=== PATIENT | female | born 1940 | race Caucasian/White ===

== ENCOUNTER 2020-05-12 16:20 | IRF | payer MEDICARE, OTHER, SELFPAY ==
--- NOTE | ~2020-05-12 | XR_ITS ---
XR hip RT min 3V w AP pelvis DATE: 05/19/2020 13:37 INDICATION: Right hip fracture TECHNIQUE: AP pelvis. AP and crosstable lateral views of right hip and femur COMPARISON: None FINDINGS: Compression screws are noted extending through an intramedullary te into the right femoral head. The intramedullary te extends into the distal femoral metaphysis, secured distally by 2 trans verse interlocking screws. 2 additional transverse screws are noted through the distal femoral condyl es. There is an aba along the lateral aspect of the right hip, proximal right thigh, distal lateral u pper leg and lateral aspect of the right knee. There is a comminuted medially displaced fracture at the lesser trochanter; recommend comparison to p reoperative radiographs for more definitive evaluation/description of the fracture extent. There is an old healed fracture of the distal femoral diametaphysis. Diffuse osteopenia. There is osteoarthritis at the right knee joint. Dextroscoliosis and multilevel degenerative disc disease of the lumbar spine. Status post vertebropla sty at L5. No pelvic fracture or bone destruction is detected. No evidence of hip dislocation. IMPRESSION: Status post ORIF probable intertrochanteric right hip fracture with comminuted medially d isplaced lesser trochanteric fracture fragments; recommend comparison with preoperative radiograph fo r more definitive evaluation of the extent of the proximal right femoral fracture Diffuse osteopenia Reviewed, dictated and finalized at location A. SURGEON HELPER IMPRESSION: Status post ORIF probable intertrochanteric right hip fracture with comminuted medially displaced lesser trochanteric fracture fragments; recommen d comparison with preoperative radiograph for more definitive evaluation of the extent of the proximal right femoral fracture Diffuse osteopenia
--- NOTE | 2020-05-12 16:35 | ADMGEN ---
Alert and orientated via ambulance to floor. This patient, Marine Sandoval, was admitted to [facility] Room 226-01. Patient/family oriented to hospital policies and general routines including ID bracelet, bed and alarms, visiting hours, pain management, procedures, bathroom and other care routines, personal items, smoking policy, room service/diet, and visiting hours. Information on how to activate the Rapid Response Team has been discussed. Patient/Family are encouraged to report perceived risks to care and to ask questions if they do not understand what they are told or what they should do.
[2020-05-12 17:17] VITALS: BP 106/88; PULSE 88; RESP 20; TEMP 36.7; O2SAT 100
[2020-05-12 17:18] VITALS: BMI 26.7
[2020-05-12 17:24] VITALS: BMI 26.7
[2020-05-12] MEDS: DULoxetine HCL 60 MG CAPSULE.DR PO (18:48)
[2020-05-12 20:53] VITALS: BP 114/59; PULSE 64; RESP 20; TEMP 36.5; O2SAT 100
[2020-05-12] MEDS: busPIRone HCL 5 MG TABLET 15 MG PO (21:32)
[2020-05-12 21:33] VITALS: PULSE 64
[2020-05-12] MEDS: carvediloL 6.25 MG TABLET PO (21:33)
[2020-05-12] MEDS: SENNA/DOCUSATE SODIUM TABLET 1 TAB PO (21:34)
[2020-05-12] MEDS: SIMVASTATIN 20 MG TABLET 40 MG PO (21:36)
[2020-05-12] MEDS: traMADol HCL (*CRX) 50 MG TABLET PO (22:09)
[2020-05-13 05:18] VITALS: BP 106/75; PULSE 78; RESP 18; TEMP 36.4; O2SAT 99
[2020-05-13 06:07] VITALS: PULSE 78
[2020-05-13] MEDS: traMADol HCL (*CRX) 50 MG TABLET PO ×2 (06:07→12:11)
[2020-05-13] MEDS: AMIODARONE HCL 200 MG TABLET PO (06:07)
[2020-05-13 06:17] LABS: Basophils Percent Auto 0.5 % (0.2-1.2); Eosinophils Absolute Auto 0.4 K/mm3 (0-0.3); Eosinophils Percent Auto 4.8 % (0-4.4); Hematocrit 28.1 % (37.0-47.0); Hemoglobin 9.1 g/dL (12.0-15.0); Immature Granulocyte Absolute 0.03 K/mm3 (0.00-0.031); Immature Granulocyte Percent A 0.4 % (0-0.5); Lymphocytes Absolute Auto 1.62 K/mm3 (0.9-3.2); Lymphocytes Percent Auto 19.9 % (18.3-44.2); Mean Corpuscular HGB Conc 32.4 g/dl (32-36); Mean Corpuscular Hemoglobin 30.6 pg (26-34); Mean Corpuscular Volume 94.6 fl (80-100); Mean Platelet Volume 9.2 fl (7.4-10.4); Monocytes Absolute Auto 1.1 K/mm3 (0.1-0.6); Monocytes Percent Auto 13.4 % (2.6-8.5); Platelet Count Result 276 k/mm3 (150-375); Red Blood Count 2.97 M/mm3 (4.2-5.4); Red Cell Distribution Width 16.6 % (11.5-14.5); White Blood Count 8.1 K/mm3 (4.5-10.0)
[2020-05-13 06:50] LABS: Blood Urea Nitrogen 9 mg/dL (7-17); Calcium 7.4 mg/dL (8.4-10.2); Carbon Dioxide 28 mmol/L (22-30); Estimated CRCL calculation 84 ml/min; Estimated Glomerular Filt Rate > 60; Glucose 90 mg/dL (65-105)
[2020-05-13 06:58] LABS: Anion Gap 2 mmol/L (8-16); Chloride 102 mmol/L (98-107); Potassium 4.1 mmol/L (3.4-5.0); Sodium 132 mmol/L (137-145)
[2020-05-13] MEDS: CALCIUM ACETATE 667 MG TABLET PO (09:52)
[2020-05-13] MEDS: busPIRone HCL 5 MG TABLET 15 MG PO ×3 (09:52→21:36)
[2020-05-13 09:53] VITALS: PULSE 78
[2020-05-13] MEDS: CHOLECALCIFEROL 1,000 UNITS TABLET 1000 UNITS PO (09:53)
[2020-05-13] MEDS: carvediloL 6.25 MG TABLET PO ×2 (09:53→21:37)
[2020-05-13] MEDS: LIDOCAINE 5% PATCH 3 PATCH TOPICAL (09:55)
[2020-05-13] MEDS: DOCUSATE SODIUM 100 MG CAPSULE PO (09:55)
[2020-05-13] MEDS: polyethylene glycoL 3350 17 GM POWD.PACK PO (09:55)
[2020-05-13] MEDS: CLOPIDOGREL BISULFATE 75 MG TABLET PO (09:55)
[2020-05-13] MEDS: PRAVASTATIN SODIUM 20 MG TABLET PO (09:56)
[2020-05-13] MEDS: ACETAMINOPHEN 500 MG TABLET 1000 MG PO (10:01)
[2020-05-13 13:24] VITALS: BMI 26.7
[2020-05-13 14:00] VITALS: BP 109/67; PULSE 74; RESP 18; TEMP 36.2; O2SAT 97
--- NOTE | 2020-05-13 14:15 | WPDREHABHP ---
H&P: HPI History of Present Illness Date/Time: 05/13/20 14:15 Chief Complaint: comminuted displaced right inter trochanteric periprosthetic femur neck fracture Narrative: Marine Sandoval is a 79 year old femaleHISTORY OF PRESENT ILLNESS: The patient's primary rehab impairment category is 0 5-[id number] extremity fracture The etiologic diagnosis is comminuted displaced right intertrochanteric periprosthetic femoral neck fracture I saw this patient [id number] on May 13, 2020 at 2:00 p.m. The patient is a 79 years old female with a past medical history of hypertension, hyperlipidemia, Daniella, arthritis, coronary artery disease, and lumbar radiculopathy who presented to [facility] on May 07, 2020 with complaints of right arm and right hip pain after seem level mechanical fall at approximately 3:00 p.m. on April 27, 2020 and a fall approximately 3 weeks ago causing right shoulder pain. Radiological investigation demonstrated a comminuted femur neck fracture. Of note the patient had a known right proximal humeral shaft fracture from the fall 3 weeks ago and was being treated conservatively. Patient reported getting up from the commode trying to put her pants on when she fell onto her right side. She noted immediate pain in both right upper extremity and right lower extremity and was unable to ambulate. She denied head trauma or loss of consciousness. Patient was transferred to [facility] and admitted on May 08, 2020. Further trauma imaging was obtained and CT of the head was negative, C-spine showed severe multilevel degenerative disease with no acute fracture and lastly a comminuted displaced periprosthetic intertrochanteric right femur neck fracture with moderate right hip joint hemarthrosis with moderate size intramuscular hematoma involving the anterior and medial compartment musculature. orthopedic trauma was consulted and the patient was taken directly to the OR for an intramedullary nailing of the right femur fracture. She is weight-bearing as tolerated to the right lower extremity nonweightbearing to the right upper extremity. On May 09, 2020 the patient experience postoperative issues of atrial fibrillation with rapid ventricular response and Hypotension. She was given IV metoprolol, Ultmann of packed RBCs, and multiple fluid boluses that did not correct atrial fibrillation. She was placed on a loren infusion , given and amino bolus and then transition to an amino infusion. Cardiology was consulted and the amino infusion was run for 24 hours and then discontinued since the patient converted back to NSR. Post operatively she also experienced acute postoperative pain, acute blood loss anemia, attention, and leukocytosis. She is receiving oral analgesic for pain, acute blood loss anemia currently stable, Coreg was resumed for hypertension, and leukocytosis is currently down trending. She was transferred to rehab on Lovenox for DVT prophylaxis until she is ambulating 150ft consistently. COVID: The patient has not traveled outside the [place] or had contact with someone who is ill that has traveled outside the [place] in the past 21 days. The patient has not travel to an area of the [place] that is experiencing known transmission of the Coronavirus and has not had close personal contact with anyone that has. The patient does not have a fever. Patient is not experiencing lower respiratory illness symptoms. Therapy was initiated at the acute care facility and the patient transferred to us from [[facility] on May 12, 2020 FALLS OR SURGERIES: the patient has had major surgery this admission( IM nailing right femur on May 08, 2020) the patient has had 2 falls in the past year. The patient has had 2 falls with injury in the past year. PAST MEDICAL HISTORY: Anxiety, arthritis, atherosclerosis of the coronary artery, coronary artery disease, infection, hyperlipidemia
[2020-05-13] MEDS: DULoxetine HCL 60 MG CAPSULE.DR PO (17:04)
[2020-05-13] MEDS: oxyCODONE/ACETAMINOPHEN (*CRX) 5-325 MG TABLET 1 TABLET PO ×2 (17:04→21:39)
[2020-05-13] MEDS: BACITRACIN OINTMENT 15 GM TUBE 1 APPLIC TOPICAL (21:36)
[2020-05-13 21:37] VITALS: PULSE 74
[2020-05-13] MEDS: SIMVASTATIN 20 MG TABLET 40 MG PO (21:37)
[2020-05-13] MEDS: SENNA/DOCUSATE SODIUM TABLET 1 TAB PO (21:37)
[2020-05-13 22:15] VITALS: BP 118/62; PULSE 74; RESP 14; TEMP 36.6; O2SAT 98
[2020-05-14] VITALS (7 sets, daily range): BP systolic 89–119; BP diastolic 47–64; PULSE 67–82; RESP 12–20; TEMP 36.6–37.3; O2SAT 96–99
[2020-05-14] MEDS: AMIODARONE HCL 200 MG TABLET PO (05:21)
[2020-05-14] MEDS: oxyCODONE/ACETAMINOPHEN (*CRX) 5-325 MG TABLET 1 TABLET PO ×3 (05:22→22:58)
--- NOTE | 2020-05-14 08:08 | RPD ---
INDIVIDUALIZED PLAN OF CARE FOR Marine Sandoval Brief Synthesis of Pre-Admission Screen, Post-Admission Evaluation and Therapy Evaluations: The patient presents to rehab with comminuted, displaced right intertrochanteric benjamin-prosthetic femoral neck fracture. Comorbidities include status post intramedullary nailing right femur, right humerus fracture, hypertension, hypotension, acute blood loss anemia, acute postoperative pain, atrial fibrillation with RVR, leukocytosis, hyperlipidemia, and anxiety. The complexity of the patient's medical management, nursing, and therapy needs require an inpatient rehab hospital stay with a physician-led interdisciplinary team approach. The patient?s needs will be best met in an intensive program vs. at a lower level of care. The patient requires physician services for medical oversight, management of postop complications in setting of present comorbidities, and pain management. She will be followed at least three times a week by the rehabilitation physician. Orthopedics may see the patient at the frequency of their discretion. Labs will be drawn to monitor blood counts and electrolytes periodically. The patient requires nursing services for DVT prophylactics, infection protection, medication management and education, pressure relief, and wound care. Deficits include:ADLs, Balance, Endurance, Family Training/Education, Mobility, Pain Management, ROM, Safety, Strength, and Transfers. Storage Facility Housekeeper/Case Management for: Discharge Planning and Patient/Family Counseling Physical Therapy: 5 days per week for 90 minutes. Treatments may include: Therapeutic Exercise, Gait Training, Neuromuscular Re-education, Transfer Training, Community Reintegration, Bed Mobility, Patient/Family Education, Wheelchair Mobility Group Therapy/Concurrent Therapy Rationales: -Improve attention span during functional activities in a distracted environment. -Enhance problem solving and/or adequate judgment skills during functional activities in a distracted environment. -Promote increased safety awareness in a distracted environment to reduce fall risk with functional tasks, transfers, and ambulation to allow a more safe, self-sufficient return to the home environment. -Improve dynamic balance skills to promote safety and independence with functional activities in a distracted environment for maximum gain. Occupational Therapy: 5 days per week for 90 minutes. Treatments may include: Therapeutic Exercise, Therapeutic Activity, Cognitive Training, Self-Care Transfer Training, Community Reintegration, Home Management, Patient/Family Education, Wheelchair Mobility Training, Energy Conservation Training Group Therapy/Concurrent Therapy Rationales: -Allow therapist to observe and teach generalization and carry-over of skills learned in individual therapy. -Enhance problem solving and sequencing skills during therapeutic activities in a distracted environment. -Promote increased safety awareness in a realistic setting to reduce fall risk with functional tasks due to visual and verbal distractions. -Increase functional level with ADLs, ADL transfers and use of adaptive equipment through therapeutic activities with others while promoting safety to allow a more safe, self-sufficient return home. Medical Prognosis: Good Anticipated Length of Stay: 14 days Rehab Goals: Eating Goal: 06-Independent Oral Hygiene Goal: 06-Independent Toileting Hygiene Goal: 06-Independent Shower/Bathe Self Goal: 04-Supervision or Touching Assistance Upper Body Dressing Goal: 05-Setup or Clean Up Assistance Lower Body Dressing Goal: 05-Setup or Clean Up Assistance Putting On/Taking Off Footwear Goal: 05-Setup or Clean Up Assistance Rolling Left and Right Goal: 06-Independent Sit to Lying Goal: 06-Independent Lying to Sitting on Side of Bed Goal: 06-Independent Sit to Stand Goal: 06-Independent Chair/Cvy-pl-Srvsc Transfer Goal: 06-Independent Toilet Transfer Goal: 06-Independent C
[2020-05-14] MEDS: busPIRone HCL 5 MG TABLET 15 MG PO ×3 (08:36→21:28)
[2020-05-14] MEDS: CALCIUM ACETATE 667 MG TABLET PO (08:37)
[2020-05-14] MEDS: CHOLECALCIFEROL 1,000 UNITS TABLET 1000 UNITS PO (08:38)
[2020-05-14] MEDS: DOCUSATE SODIUM 100 MG CAPSULE PO (08:38)
[2020-05-14] MEDS: CLOPIDOGREL BISULFATE 75 MG TABLET PO (08:38)
[2020-05-14] MEDS: LIDOCAINE 5% PATCH 3 PATCH TOPICAL (08:38)
[2020-05-14] MEDS: PRAVASTATIN SODIUM 20 MG TABLET PO (08:38)
[2020-05-14] MEDS: polyethylene glycoL 3350 17 GM POWD.PACK PO (08:39)
[2020-05-14] MEDS: carvediloL 6.25 MG TABLET PO ×2 (08:40→21:29)
[2020-05-14] MEDS: BACITRACIN OINTMENT 15 GM TUBE 1 APPLIC TOPICAL ×2 (08:40→21:28)
--- NOTE | 2020-05-14 13:46 | WPDNEURORHBP ---
Subjective Date/time seen: 05/14/20 13:46 79 years old with comminuted displaced right intertrochanteric periprosthetic femur neck fracture in addition to the ongoing history of 1. Hypertension 2. Hyperlipidemia 3. Arthritis 4. Coronary artery disease 5. Lumbar radiculopathy 6. Anxiety has been evaluated by the physical therapist and occupational therapies and also involving the therapy on today's visit not complaining of anything special Review of Systems Review of Systems: All systems reviewed & are unremarkable except as noted in HPI and below Functional Status Ambulation Ability Ambulation Assistive Devices: Walker, Jorge A Exam Narrative: Exam Narrative: on examination she is awake alert cooperative in no major distress ear nose throat examination normal mucous membranes are moist no rhinorrhea neck is supple heart regular lungs clear abdomen is soft neuro examination unchanged treatment is being continued as such Objective Data Vital Signs Vital Signs: Vital Signs - 24 hr 05/13/20 14:00 05/13/20 21:37 05/13/20 22:15 Temperature 36.2 C L 36.6 C Pulse Rate 74 74 74 Respiratory Rate 18 14 Blood Pressure 109/67 118/62 Pulse Oximetry 97 98 05/14/20 05:21 05/14/20 06:00 05/14/20 08:40 Temperature 36.6 C Pulse Rate 73 67 67 Respiratory Rate 12 Blood Pressure 102/56 L Pulse Oximetry 99 Intake/Output Intake/Output: Intake & Output 05/11/20 05/12/20 05/13/20 05/14/20 23:59 23:59 23:59 23:59 Intake Total 600 480 Balance 600 480 Meds/Results Medications: Active Medications Generic Name Dose Route Start Last Admin Trade Name Freq PRN Reason Stop Dose Admin Acetaminophen 1,000 mg 05/12/20 17:39 05/13/20 10:01 Acetaminophen 500 Mg Tablet PO 1,000 mg TID PRN Administration Pain (Scale Score 1-3) Amiodarone HCl 200 mg 05/13/20 06:00 05/14/20 05:21 Amiodarone Hcl 200 Mg Tablet PO 200 mg DAILY@0600 [facility] Administration Bacitracin 1 applic 05/13/20 21:00 05/14/20 08:40 Bacitracin Ointment 15 Gm Tube TOPICAL 1 applic Q12HR [facility] Administration Buspirone HCl 15 mg 05/12/20 21:00 05/14/20 08:36 Buspirone Hcl 5 Mg Tablet PO 15 mg 0900,1600,2100 [facility] Administration Calcium Acetate 667 mg 05/13/20 09:00 05/14/20 08:37 Calcium Acetate 667 Mg Tablet PO 667 mg DAILY [facility] Administration Carvedilol 6.25 mg 05/12/20 21:00 05/14/20 08:40 Carvedilol 6.25 Mg Tablet PO 6.25 mg Q12H [facility]ATRINA Administration Clopidogrel Bisulfate 75 mg 05/13/20 09:00 05/14/20 08:38 Clopidogrel Bisulfate 75 Mg Tablet PO 75 mg DAILY [facility] Administration Cyclobenzaprine HCl 5 mg 05/12/20 17:39 Cyclobenzaprine Hcl 5 Mg Tablet PO TID PRN Muscle Spasm Docusate Sodium 100 mg 05/13/20 09:00 05/14/20 08:38 Docusate Sodium 100 Mg Capsule PO 100 mg DAILY [facility] Administration Duloxetine HCl 60 mg 05/12/20 17:00 05/13/20 17:04 Duloxetine Hcl 60 Mg Capsule.Dr PO 60 mg DAILY@1700 [facility] Administration Lidocaine 3 patch 05/13/20 09:00 05/14/20 08:38 Lidocaine 5% Patch TOPICAL 3 patch DAILY [facility] Administration Non-Formulary Medication 60 mg 05/19/20 09:00 Denosumab SUB-Q 06/18/20 09:01 [id number] [facility] Ondansetron HCl 8 mg 05/12/20 17:48 Ondansetron Hcl Odt 4 Mg Tablet PO Q6H PRN Nausea Oxycodone/Acetaminophen 1 tablet 05/13/20 14:00 05/14/20 05:22 Oxycodone/Acetaminophen (*Crx) 5-325 Mg Tablet PO 1 tablet Q8HR [facility] Administration Polyethylene Glycol 17 gm 05/13/20 09:00 05/14/20 08:39 Polyethylene Glycol 3350 17 Gm Powd.Pack PO 17 gm DAILY [facility] Administration Pravastatin Sodium 20 mg 05/13/20 09:00 05/14/20 08:38 Pravastatin Sodium 20 Mg Tablet PO 20 mg DAILY [facility] Administration Senna/Docusate Sodium 1 tab 05/12/20 21:00 05/13/20 21:37 Senna/Docusate Sodium Tablet PO 1 tab HS [facility] Administration Simvastatin 40 mg 05/12/20 21:00 05/13/20 21:37 Simvas
[2020-05-14] MEDS: DULoxetine HCL 60 MG CAPSULE.DR PO (17:07)
[2020-05-14] MEDS: SIMVASTATIN 20 MG TABLET 40 MG PO (21:29)
[2020-05-14] MEDS: SENNA/DOCUSATE SODIUM TABLET 1 TAB PO (21:30)
[2020-05-14] MEDS: traMADol HCL (*CRX) 50 MG TABLET PO (21:38)
[2020-05-15 04:47] VITALS: BP 93/52; PULSE 73; RESP 18; TEMP 37.1; O2SAT 96
[2020-05-15 06:06] VITALS: PULSE 68
[2020-05-15] MEDS: AMIODARONE HCL 200 MG TABLET PO (06:06)
[2020-05-15] MEDS: oxyCODONE/ACETAMINOPHEN (*CRX) 5-325 MG TABLET 1 TABLET PO ×3 (06:06→22:29)
[2020-05-15] MEDS: CHOLECALCIFEROL 1,000 UNITS TABLET 1000 UNITS PO (09:13)
[2020-05-15] MEDS: polyethylene glycoL 3350 17 GM POWD.PACK PO (09:13)
[2020-05-15] MEDS: PRAVASTATIN SODIUM 20 MG TABLET PO (09:13)
[2020-05-15] MEDS: LIDOCAINE 5% PATCH 3 PATCH TOPICAL (09:13)
[2020-05-15 09:14] VITALS: PULSE 68
[2020-05-15] MEDS: CALCIUM ACETATE 667 MG TABLET PO (09:14)
[2020-05-15] MEDS: CLOPIDOGREL BISULFATE 75 MG TABLET PO (09:14)
[2020-05-15] MEDS: carvediloL 6.25 MG TABLET PO ×2 (09:14→20:27)
[2020-05-15] MEDS: BACITRACIN OINTMENT 15 GM TUBE 1 APPLIC TOPICAL ×2 (09:14→20:28)
[2020-05-15] MEDS: busPIRone HCL 5 MG TABLET 15 MG PO ×3 (09:14→20:26)
[2020-05-15] MEDS: DOCUSATE SODIUM 100 MG CAPSULE PO (09:17)
[2020-05-15 14:00] VITALS: BP 136/70; PULSE 86; RESP 18; TEMP 36.7; O2SAT 95
[2020-05-15] MEDS: DULoxetine HCL 60 MG CAPSULE.DR PO (16:59)
[2020-05-15 20:27] VITALS: PULSE 75
[2020-05-15] MEDS: SENNA/DOCUSATE SODIUM TABLET 1 TAB PO (20:27)
[2020-05-15] MEDS: SIMVASTATIN 20 MG TABLET 40 MG PO (20:27)
[2020-05-15 20:57] VITALS: BP 101/75; PULSE 75; RESP 18; TEMP 36.3; O2SAT 100
[2020-05-16] VITALS (7 sets, daily range): BP systolic 93–109; BP diastolic 51–55; PULSE 70–75; RESP 18–20; TEMP 36.3–37.2; O2SAT 99
[2020-05-16] MEDS: oxyCODONE/ACETAMINOPHEN (*CRX) 5-325 MG TABLET 1 TABLET PO ×3 (06:23→20:56)
[2020-05-16] MEDS: AMIODARONE HCL 200 MG TABLET PO (06:23)
[2020-05-16] MEDS: CHOLECALCIFEROL 1,000 UNITS TABLET 1000 UNITS PO (09:23)
[2020-05-16] MEDS: carvediloL 6.25 MG TABLET PO ×2 (09:23→20:53)
[2020-05-16] MEDS: CALCIUM ACETATE 667 MG TABLET PO (09:23)
[2020-05-16] MEDS: PRAVASTATIN SODIUM 20 MG TABLET PO (09:23)
[2020-05-16] MEDS: CLOPIDOGREL BISULFATE 75 MG TABLET PO (09:23)
[2020-05-16] MEDS: LIDOCAINE 5% PATCH 3 PATCH TOPICAL (09:24)
[2020-05-16] MEDS: busPIRone HCL 5 MG TABLET 15 MG PO ×3 (09:24→20:53)
[2020-05-16] MEDS: BACITRACIN OINTMENT 15 GM TUBE 1 APPLIC TOPICAL ×2 (09:24→20:53)
[2020-05-16] MEDS: polyethylene glycoL 3350 17 GM POWD.PACK PO (09:24)
[2020-05-16] MEDS: DOCUSATE SODIUM 100 MG CAPSULE PO (09:24)
--- NOTE | 2020-05-16 13:30 | WPDNEURORHBP ---
Subjective Date/time seen: 05/16/20 13:30 79 years old with comminuted displaced right intertrochanteric periprosthetic femur neck fracture in addition to ongoing history of 1. Hypertension 2. Hyperlipidemia 3. Arthritis 4. Coronary artery disease 5. Lumbar radiculopathy 6. Anxiety has been involved in physical therapy and occupational therapy on today's visit has no specific complaints feeling generally better Review of Systems Review of Systems: All systems reviewed & are unremarkable except as noted in HPI and below Functional Status Ambulation Ability Ambulation Assistive Devices: Walker, Jorge A Exam Narrative: Exam Narrative: on examination awake alert cooperative, [place] nor dysphasic no dysarthric not dysphonic, neck supple, heart regular with no murmur, lungs clear to auscultation with no rhonchi or crepitation, abdomen soft nontender, neurological examination unchanged Objective Data Vital Signs Vital Signs: Vital Signs - 24 hr 05/15/20 14:00 05/15/20 20:27 05/15/20 20:57 Temperature 36.7 C 36.3 C L Pulse Rate 86 75 75 Respiratory Rate 18 18 Blood Pressure 136/70 101/75 Pulse Oximetry 95 100 05/16/20 05:39 05/16/20 06:23 05/16/20 09:23 Temperature 37.0 C Pulse Rate 75 75 75 Respiratory Rate 20 Blood Pressure 109/55 L Pulse Oximetry 99 Intake/Output Intake/Output: Intake & Output 05/13/20 05/14/20 05/15/20 05/16/20 23:59 23:59 23:59 23:59 Intake Total 600 720 600 480 Balance 600 720 600 480 Meds/Results Medications: Active Medications Generic Name Dose Route Start Last Admin Trade Name Freq PRN Reason Stop Dose Admin Acetaminophen 1,000 mg 05/12/20 17:39 05/13/20 10:01 Acetaminophen 500 Mg Tablet PO 1,000 mg TID PRN Administration Pain (Scale Score 1-3) Amiodarone HCl 200 mg 05/13/20 06:00 05/16/20 06:23 Amiodarone Hcl 200 Mg Tablet PO 200 mg DAILY@0600 [facility] Administration Bacitracin 1 applic 05/13/20 21:00 05/16/20 09:24 Bacitracin Ointment 15 Gm Tube TOPICAL 1 applic Q12HR [facility] Administration Buspirone HCl 15 mg 05/12/20 21:00 05/16/20 09:24 Buspirone Hcl 5 Mg Tablet PO 15 mg 0900,1600,2100 [facility] Administration Calcium Acetate 667 mg 05/13/20 09:00 05/16/20 09:23 Calcium Acetate 667 Mg Tablet PO 667 mg DAILY [facility] Administration Carvedilol 6.25 mg 05/12/20 21:00 05/16/20 09:23 Carvedilol 6.25 Mg Tablet PO 6.25 mg Q12H [facility] Administration Clopidogrel Bisulfate 75 mg 05/13/20 09:00 05/16/20 09:23 Clopidogrel Bisulfate 75 Mg Tablet PO 75 mg DAILY [facility] Administration Cyclobenzaprine HCl 5 mg 05/12/20 17:39 Cyclobenzaprine Hcl 5 Mg Tablet PO TID PRN Muscle Spasm Docusate Sodium 100 mg 05/13/20 09:00 05/16/20 09:24 Docusate Sodium 100 Mg Capsule PO 100 mg DAILY [facility] Administration Duloxetine HCl 60 mg 05/12/20 17:00 05/15/20 16:59 Duloxetine Hcl 60 Mg Capsule.Dr PO 60 mg DAILY@1700 [facility] Administration Lidocaine 3 patch 05/13/20 09:00 05/16/20 09:24 Lidocaine 5% Patch TOPICAL 3 patch DAILY [facility] Administration Non-Formulary Medication 60 mg 05/19/20 09:00 Denosumab SUB-Q 06/18/20 09:01 [id number] [facility] Ondansetron HCl 8 mg 05/12/20 17:48 Ondansetron Hcl Odt 4 Mg Tablet PO Q6H PRN Nausea Oxycodone/Acetaminophen 1 tablet 05/13/20 14:00 05/16/20 06:23 Oxycodone/Acetaminophen (*Crx) 5-325 Mg Tablet PO 1 tablet Q8HR [facility] Administration Polyethylene Glycol 17 gm 05/13/20 09:00 05/16/20 09:24 Polyethylene Glycol 3350 17 Gm Powd.Pack PO 17 gm DAILY [facility] Administration Pravastatin Sodium 20 mg 05/13/20 09:00 05/16/20 09:23 Pravastatin Sodium 20 Mg Tablet PO 20 mg DAILY [facility] Administration Senna/Docusate Sodium 1 tab 05/12/20 21:00 05/15/20 20:27 Senna/Docusate Sodium Tablet PO 1 tab HS [facility] Administration Simvastatin 40 mg 05/12/20 21:00 05/15/20 20:27 Simvastatin 20 Mg Tablet PO 40
--- NOTE | 2020-05-16 13:32 | WPDNEURORHBP ---
Subjective Date/time seen: 05/16/20 13:32 80 years old with comminuted displaced right intertrochanteric periprosthetic femur neck fracture addition to history of multiple medical problems as outlined before additionally complained of lower back pain as well remains stable has no specific complaints today and has been involved in physical therapy and occupational therapy accordingly. Functional Status Ambulation Ability Ambulation Assistive Devices: Walker, Jorge A Exam Narrative: Exam Narrative: On exam awake alert cooperative his speech not dysphasic no dysarthric not dysphonic. Neck is supple with no restriction of the range of motions. Heart regular with no murmur. Lungs clear to auscultation with no rhonchi or crepitations. Abdomen is soft with no organomegaly nontender normal bowel sounds. Wound clean neuro exam unchanged Objective Data Vital Signs Vital Signs: Vital Signs - 24 hr 05/15/20 14:00 05/15/20 20:27 05/15/20 20:57 Temperature 36.7 C 36.3 C L Pulse Rate 86 75 75 Respiratory Rate 18 18 Blood Pressure 136/70 101/75 Pulse Oximetry 95 100 05/16/20 05:39 05/16/20 06:23 05/16/20 09:23 Temperature 37.0 C Pulse Rate 75 75 75 Respiratory Rate 20 Blood Pressure 109/55 L Pulse Oximetry 99 Intake/Output Intake/Output: Intake & Output 05/13/20 05/14/20 05/15/20 05/16/20 23:59 23:59 23:59 23:59 Intake Total 600 720 600 480 Balance 600 720 600 480 Meds/Results Medications: Active Medications Generic Name Dose Route Start Last Admin Trade Name Leonq PRN Reason Stop Dose Admin Acetaminophen 1,000 mg 05/12/20 17:39 05/13/20 10:01 Acetaminophen 500 Mg Tablet PO 1,000 mg TID PRN Administration Pain (Scale Score 1-3) Amiodarone HCl 200 mg 05/13/20 06:00 05/16/20 06:23 Amiodarone Hcl 200 Mg Tablet PO 200 mg DAILY@0600 [facility] Administration Bacitracin 1 applic 05/13/20 21:00 05/16/20 09:24 Bacitracin Ointment 15 Gm Tube TOPICAL 1 applic Q12HR [facility] Administration Buspirone HCl 15 mg 05/12/20 21:00 05/16/20 09:24 Buspirone Hcl 5 Mg Tablet PO 15 mg 0900,1600,2100 [facility] Administration Calcium Acetate 667 mg 05/13/20 09:00 05/16/20 09:23 Calcium Acetate 667 Mg Tablet PO 667 mg DAILY [facility] Administration Carvedilol 6.25 mg 05/12/20 21:00 05/16/20 09:23 Carvedilol 6.25 Mg Tablet PO 6.25 mg Q12H [facility] Administration Clopidogrel Bisulfate 75 mg 05/13/20 09:00 05/16/20 09:23 Clopidogrel Bisulfate 75 Mg Tablet PO 75 mg DAILY [facility] Administration Cyclobenzaprine HCl 5 mg 05/12/20 17:39 Cyclobenzaprine Hcl 5 Mg Tablet PO TID PRN Muscle Spasm Docusate Sodium 100 mg 05/13/20 09:00 05/16/20 09:24 Docusate Sodium 100 Mg Capsule PO 100 mg DAILY [facility] Administration Duloxetine HCl 60 mg 05/12/20 17:00 05/15/20 16:59 Duloxetine Hcl 60 Mg Capsule.Dr PO 60 mg DAILY@1700 [facility] Administration Lidocaine 3 patch 05/13/20 09:00 05/16/20 09:24 Lidocaine 5% Patch TOPICAL 3 patch DAILY [facility] Administration Non-Formulary Medication 60 mg 05/19/20 09:00 Denosumab SUB-Q 06/18/20 09:01 [id number] [facility] Ondansetron HCl 8 mg 05/12/20 17:48 Ondansetron Hcl Odt 4 Mg Tablet PO Q6H PRN Nausea Oxycodone/Acetaminophen 1 tablet 05/13/20 14:00 05/16/20 06:23 Oxycodone/Acetaminophen (*Crx) 5-325 Mg Tablet PO 1 tablet Q8HR [facility] Administration Polyethylene Glycol 17 gm 05/13/20 09:00 05/16/20 09:24 Polyethylene Glycol 3350 17 Gm Powd.Pack PO 17 gm DAILY [facility] Administration Pravastatin Sodium 20 mg 05/13/20 09:00 05/16/20 09:23 Pravastatin Sodium 20 Mg Tablet PO 20 mg DAILY [facility] Administration Senna/Docusate Sodium 1 tab 05/12/20 21:00 05/15/20 20:27 Senna/Docusate Sodium Tablet PO 1 tab HS [facility] Administration Simvastatin 40 mg 05/12/20 21:00 12/25/20 20:27 Simvastatin 20 Mg Tablet PO 40 mg HS [facility] Administration Tramadol HCl 50 mg
[2020-05-16] MEDS: DULoxetine HCL 60 MG CAPSULE.DR PO (17:25)
[2020-05-16] MEDS: SIMVASTATIN 20 MG TABLET 40 MG PO (20:53)
[2020-05-16] MEDS: SENNA/DOCUSATE SODIUM TABLET 1 TAB PO (20:53)
[2020-05-17 06:00] VITALS: BP 114/54; PULSE 70; RESP 18; TEMP 36.9; O2SAT 96
[2020-05-17 06:11] VITALS: PULSE 70
[2020-05-17] MEDS: AMIODARONE HCL 200 MG TABLET PO (06:11)
[2020-05-17] MEDS: oxyCODONE/ACETAMINOPHEN (*CRX) 5-325 MG TABLET 1 TABLET PO ×3 (06:17→21:00)
[2020-05-17] MEDS: BACITRACIN OINTMENT 15 GM TUBE 1 APPLIC TOPICAL ×2 (09:26→20:59)
[2020-05-17 09:27] VITALS: PULSE 70
[2020-05-17] MEDS: polyethylene glycoL 3350 17 GM POWD.PACK PO (09:27)
[2020-05-17] MEDS: CALCIUM ACETATE 667 MG TABLET PO (09:27)
[2020-05-17] MEDS: CHOLECALCIFEROL 1,000 UNITS TABLET 1000 UNITS PO (09:27)
[2020-05-17] MEDS: carvediloL 6.25 MG TABLET PO ×2 (09:27→20:58)
[2020-05-17] MEDS: busPIRone HCL 5 MG TABLET 15 MG PO ×3 (09:27→20:58)
[2020-05-17] MEDS: CLOPIDOGREL BISULFATE 75 MG TABLET PO (09:27)
[2020-05-17] MEDS: PRAVASTATIN SODIUM 20 MG TABLET PO (09:27)
[2020-05-17] MEDS: DOCUSATE SODIUM 100 MG CAPSULE PO (09:27)
[2020-05-17] MEDS: LIDOCAINE 5% PATCH 3 PATCH TOPICAL (09:27)
[2020-05-17 14:00] VITALS: BP 97/49; PULSE 76; RESP 16; TEMP 36.6; O2SAT 99
[2020-05-17 15:16] LABS: Basophils Absolute Auto 0.1 K/mm3 (0.0-0.1); Basophils Percent Auto 0.5 % (0.2-1.2); Eosinophils Absolute Auto 0.2 K/mm3 (0-0.3); Eosinophils Percent Auto 1.9 % (0-4.4); Hematocrit 34.9 % (37.0-47.0); Hemoglobin 11.4 g/dL (12.0-15.0); Immature Granulocyte Absolute 0.07 K/mm3 (0.00-0.031); Immature Granulocyte Percent A 0.7 % (0-0.5); Lymphocytes Absolute Auto 1.48 K/mm3 (0.9-3.2); Lymphocytes Percent Auto 14.1 % (18.3-44.2); Mean Corpuscular HGB Conc 32.7 g/dl (32-36); Mean Corpuscular Hemoglobin 31.4 pg (26-34); Mean Corpuscular Volume 96.1 fl (80-100); Mean Platelet Volume 8.6 fl (7.4-10.4); Monocytes Absolute Auto 1.5 K/mm3 (0.1-0.6); Neutrophils Absolute Auto 7.3 K/mm3 (1.3-6.7); Neutrophils Percent Auto 68.8 % (45.5-73.1); Platelet Count Result 573 k/mm3 (150-375); Red Blood Count 3.63 M/mm3 (4.2-5.4); Red Cell Distribution Width 16.8 % (11.5-14.5); White Blood Count 10.5 K/mm3 (4.5-10.0)
[2020-05-17 15:28] LABS: Alanine Aminotransferase 15 U/L (4-35); Albumin Level 3.4 g/dL (3.5-5.1); Alkaline Phosphatase 100 U/L (38-126); Anion Gap 7 mmol/L (8-16); Aspartate Amino Transferase 27 U/L (14-36); Bilirubin,Total 1.7 mg/dL (0.2-1.3); Blood Urea Nitrogen 13 mg/dL (7-17); Calcium 8.5 mg/dL (8.4-10.2); Carbon Dioxide 29 mmol/L (22-30); Chloride 99 mmol/L (98-107); Estimated CRCL calculation 59 ml/min; Estimated Glomerular Filt Rate > 60; Glucose 101 mg/dL (65-105); Potassium 3.6 mmol/L (3.4-5.0); Sodium 135 mmol/L (137-145)
[2020-05-17] MEDS: DULoxetine HCL 60 MG CAPSULE.DR PO (17:23)
[2020-05-17 20:58] VITALS: PULSE 78
[2020-05-17] MEDS: SIMVASTATIN 20 MG TABLET 40 MG PO (20:59)
[2020-05-17] MEDS: SENNA/DOCUSATE SODIUM TABLET 1 TAB PO (20:59)
[2020-05-17 21:17] VITALS: BP 128/66; PULSE 74; RESP 18; TEMP 36.8; O2SAT 100
[2020-05-18 05:58] VITALS: PULSE 82
[2020-05-18] MEDS: oxyCODONE/ACETAMINOPHEN (*CRX) 5-325 MG TABLET 1 TABLET PO ×3 (05:58→22:39)
[2020-05-18] MEDS: AMIODARONE HCL 200 MG TABLET PO (05:58)
[2020-05-18 06:00] VITALS: BP 111/61; PULSE 76; RESP 18; TEMP 36.3; O2SAT 100
[2020-05-18] MEDS: DOCUSATE SODIUM 100 MG CAPSULE PO (08:53)
[2020-05-18] MEDS: carvediloL 6.25 MG TABLET PO ×2 (08:53→21:42)
[2020-05-18] MEDS: PRAVASTATIN SODIUM 20 MG TABLET PO (08:53)
[2020-05-18] MEDS: CHOLECALCIFEROL 1,000 UNITS TABLET 1000 UNITS PO (08:53)
[2020-05-18] MEDS: CALCIUM ACETATE 667 MG TABLET PO (08:53)
[2020-05-18] MEDS: busPIRone HCL 5 MG TABLET 15 MG PO ×3 (08:54→21:42)
[2020-05-18] MEDS: CLOPIDOGREL BISULFATE 75 MG TABLET PO (08:54)
[2020-05-18] MEDS: BACITRACIN OINTMENT 15 GM TUBE 1 APPLIC TOPICAL ×2 (08:59→21:44)
--- NOTE | 2020-05-18 09:45 | WPDNEURORHBP ---
Subjective Date/time seen: 05/18/20 09:45 80 years old with comminuted displaced right intertrochanteric periprosthetic femur neck fracture in addition to history of her multiple medical problems her lab revealed hemoglobin of 11.4 and electrolytes were normal continues to be involved in the therapy Review of Systems Review of Systems: All systems reviewed & are unremarkable except as noted in HPI and below Functional Status Ambulation Ability Ability to Ambulate 10 Feet: Moderate Assistance X 1 Ambulation Assistive Devices: Walker, Wheeled Exam Narrative: Exam Narrative: examination reveals awake alert cooperative his speech nor dysphasic not dysarthric neck is supple heart regular lungs clear abdomen soft nontender and neuro unchanged Objective Data Vital Signs Vital Signs: Vital Signs - 24 hr 05/17/20 14:00 05/17/20 20:58 05/17/20 21:17 Temperature 36.6 C 36.8 C Pulse Rate 76 78 74 Respiratory Rate 16 18 Blood Pressure 97/49 L 128/66 Pulse Oximetry 99 100 05/18/20 05:58 05/18/20 06:00 Temperature 36.3 C L Pulse Rate 82 76 Respiratory Rate 18 Blood Pressure 111/61 Pulse Oximetry 100 Intake/Output Intake/Output: Intake & Output 05/15/20 05/16/20 05/17/20 05/18/20 23:59 23:59 23:59 23:59 Intake Total 600 480 480 240 Balance 600 480 480 240 Meds/Results Medications: Active Medications Generic Name Dose Route Start Last Admin Trade Name Freq PRN Reason Stop Dose Admin Acetaminophen 1,000 mg 05/12/20 17:39 05/13/20 10:01 Acetaminophen 500 Mg Tablet PO 1,000 mg TID PRN Administration Pain (Scale Score 1-3) Amiodarone HCl 200 mg 05/13/20 06:00 05/18/20 05:58 Amiodarone Hcl 200 Mg Tablet PO 200 mg DAILY@0600 [facility] Administration Bacitracin 1 applic 05/13/20 21:00 05/18/20 08:59 Bacitracin Ointment 15 Gm Tube TOPICAL 1 applic Q12HR [facility] Administration Buspirone HCl 15 mg 05/12/20 21:00 05/18/20 08:54 Buspirone Hcl 5 Mg Tablet PO 15 mg 0900,1600,2100 [facility] Administration Calcium Acetate 667 mg 05/13/20 09:00 05/18/20 08:53 Calcium Acetate 667 Mg Tablet PO 667 mg DAILY [facility] Administration Carvedilol 6.25 mg 05/12/20 21:00 05/18/20 08:53 Carvedilol 6.25 Mg Tablet PO 6.25 mg Q12H [facility] Administration Clopidogrel Bisulfate 75 mg 05/13/20 09:00 05/18/20 08:54 Clopidogrel Bisulfate 75 Mg Tablet PO 75 mg DAILY [facility] Administration Cyclobenzaprine HCl 5 mg 05/12/20 17:39 Cyclobenzaprine Hcl 5 Mg Tablet PO TID PRN Muscle Spasm Docusate Sodium 100 mg 05/13/20 09:00 05/18/20 08:53 Docusate Sodium 100 Mg Capsule PO 100 mg DAILY [facility] Administration Duloxetine HCl 60 mg 05/12/20 17:00 05/17/20 17:23 Duloxetine Hcl 60 Mg Capsule.Dr PO 60 mg DAILY@1700 [facility] Administration Lidocaine 3 patch 05/13/20 09:00 05/17/20 09:27 Lidocaine 5% Patch TOPICAL 3 patch DAILY [facility] Administration Non-Formulary Medication 60 mg 05/19/20 09:00 Denosumab SUB-Q 06/18/20 09:01 [id number] [facility] Ondansetron HCl 8 mg 05/12/20 17:48 Ondansetron Hcl Odt 4 Mg Tablet PO Q6H PRN Nausea Oxycodone/Acetaminophen 1 tablet 05/13/20 14:00 05/18/20 05:58 Oxycodone/Acetaminophen (*Crx) 5-325 Mg Tablet PO 1 tablet Q8HR [facility] Administration Polyethylene Glycol 17 gm 05/13/20 09:00 05/18/20 09:04 Polyethylene Glycol 3350 17 Gm Powd.Pack PO Not Given DAILY [facility] Pravastatin Sodium 20 mg 05/13/20 09:00 05/18/20 08:53 Pravastatin Sodium 20 Mg Tablet PO 20 mg DAILY [facility] Administration Senna/Docusate Sodium 1 tab 05/12/20 21:00 05/17/20 20:59 Senna/Docusate Sodium Tablet PO 1 tab HS [facility] Administration Simvastatin 40 mg 05/12/20 21:00 05/17/20 20:59 Simvastatin 20 Mg Tablet PO 40 mg HS [facility] Administration Tramadol HCl 50 mg 05/12/20 17:39 05/14/20 21:38 Tramadol Hcl (*Crx) 50 Mg Tablet PO 50 mg Q6H PRN Administration Pain (Scale Sco
[2020-05-18] MEDS: LIDOCAINE 5% PATCH 3 PATCH TOPICAL (12:09)
[2020-05-18] MEDS: ACETAMINOPHEN 500 MG TABLET 1000 MG PO (12:21)
[2020-05-18 14:00] VITALS: BP 94/49; PULSE 74; RESP 20; TEMP 36.9; O2SAT 99
[2020-05-18] MEDS: DULoxetine HCL 60 MG CAPSULE.DR PO (16:57)
[2020-05-18 21:42] VITALS: PULSE 80
[2020-05-18] MEDS: SIMVASTATIN 20 MG TABLET 40 MG PO (21:43)
[2020-05-18] MEDS: SENNA/DOCUSATE SODIUM TABLET 1 TAB PO (21:43)
[2020-05-18 22:00] VITALS: BP 109/57; PULSE 77; RESP 20; TEMP 37; O2SAT 99
[2020-05-19] MEDS: CYCLOBENZAPRINE HCL 5 MG TABLET PO (00:17)
[2020-05-19 05:14] LABS: Anion Gap 5 mmol/L (8-16); Blood Urea Nitrogen 11 mg/dL (7-17); Calcium 7.6 mg/dL (8.4-10.2); Carbon Dioxide 25 mmol/L (22-30); Chloride 102 mmol/L (98-107); Estimated CRCL calculation 84 ml/min; Estimated Glomerular Filt Rate > 60; Glucose 95 mg/dL (65-105); Sodium 132 mmol/L (137-145)
[2020-05-19 05:56] VITALS: PULSE 75
[2020-05-19] MEDS: AMIODARONE HCL 200 MG TABLET PO (05:56)
[2020-05-19 06:00] VITALS: BP 113/56; PULSE 75; RESP 20; TEMP 36.8; O2SAT 99
[2020-05-19] MEDS: oxyCODONE/ACETAMINOPHEN (*CRX) 5-325 MG TABLET 1 TABLET PO ×3 (06:25→22:08)
[2020-05-19] MEDS: BACITRACIN OINTMENT 15 GM TUBE 1 APPLIC TOPICAL ×2 (08:25→22:10)
[2020-05-19] MEDS: busPIRone HCL 5 MG TABLET 15 MG PO ×3 (08:25→22:13)
[2020-05-19] MEDS: CLOPIDOGREL BISULFATE 75 MG TABLET PO (08:26)
[2020-05-19] MEDS: DOCUSATE SODIUM 100 MG CAPSULE PO (08:26)
[2020-05-19] MEDS: CHOLECALCIFEROL 1,000 UNITS TABLET 1000 UNITS PO (08:26)
[2020-05-19] MEDS: carvediloL 6.25 MG TABLET PO ×2 (08:26→22:13)
[2020-05-19] MEDS: CALCIUM ACETATE 667 MG TABLET PO (08:26)
[2020-05-19] MEDS: LIDOCAINE 5% PATCH 3 PATCH TOPICAL (08:26)
[2020-05-19] MEDS: PRAVASTATIN SODIUM 20 MG TABLET PO (08:26)
--- NOTE | 2020-05-19 11:21 | WPDNEURORHBP ---
Subjective Date/time seen: 05/19/20 11:21 80 years old admitted to the hospital with comminuted displaced right intertrochanteric periprosthetic femur neck fracture in addition to the history of multiple medical problems, case for discussing the femur team meeting with the family as well her wound is clean her confusion is definitely down left phlebotomy site looks better, we were concerned about the shoulder which has not been operated upon and also they were concerned about the treatment for the Osteoporosis they have a tight injection of Prolia which they will receive bring to the hospital and can be given here and family was also informed about the x-rays report from the time of admission but we will also repeat another x-ray here Review of Systems Review of Systems: All systems reviewed & are unremarkable except as noted in HPI and below Functional Status Ambulation Ability Ability to Ambulate 10 Feet: Moderate Assistance X 1 Ambulation Assistive Devices: Cane, Jorge A Exam Narrative: Exam Narrative: examination revealed her to be awake alert cooperative in no obvious acute distress his speech nor dysphasic no dysarthric not dysphonic. The cranial examination is normal motor examination revealed her to have no drift of 1 side or other side. Reflexes are sluggish but symmetrical. Heart regular lungs clear. Abdomen is soft with normal bowel sounds nontender yesterday she was noted to be slightly more confused but today she is better Objective Data Vital Signs Vital Signs: Vital Signs - 24 hr 05/18/20 14:00 05/18/20 21:42 05/18/20 22:00 Temperature 36.9 C 37.0 C Pulse Rate 74 80 77 Respiratory Rate 20 20 Blood Pressure 94/49 L 109/57 L Pulse Oximetry 99 99 05/19/20 05:56 05/19/20 06:00 Temperature 36.8 C Pulse Rate 75 75 Respiratory Rate 20 Blood Pressure 113/56 L Pulse Oximetry 99 Intake/Output Intake/Output: Intake & Output 05/16/20 05/17/20 05/18/20 05/19/20 23:59 23:59 23:59 23:59 Intake Total 480 480 720 240 Balance 480 480 720 240 Meds/Results Medications: Active Medications Generic Name Dose Route Start Last Admin Trade Name Freq PRN Reason Stop Dose Admin Acetaminophen 1,000 mg 05/12/20 17:39 05/18/20 12:21 Acetaminophen 500 Mg Tablet PO 1,000 mg TID PRN Administration Pain (Scale Score 1-3) Amiodarone HCl 200 mg 05/13/20 06:00 05/19/20 05:56 Amiodarone Hcl 200 Mg Tablet PO 200 mg DAILY@0600 [facility] Administration Bacitracin 1 applic 05/13/20 21:00 05/19/20 08:25 Bacitracin Ointment 15 Gm Tube TOPICAL 1 applic Q12HR [facility] Administration Buspirone HCl 15 mg 05/12/20 21:00 05/19/20 08:25 Buspirone Hcl 5 Mg Tablet PO 15 mg 0900,1600,2100 [facility] Administration Calcium Acetate 667 mg 05/13/20 09:00 05/19/20 08:26 Calcium Acetate 667 Mg Tablet PO 667 mg DAILY [facility] Administration Carvedilol 6.25 mg 05/12/20 21:00 05/19/20 08:26 Carvedilol 6.25 Mg Tablet PO 6.25 mg Q12H [facility] Administration Clopidogrel Bisulfate 75 mg 05/13/20 09:00 05/19/20 08:26 Clopidogrel Bisulfate 75 Mg Tablet PO 75 mg DAILY [facility] Administration Cyclobenzaprine HCl 5 mg 05/12/20 17:39 05/19/20 00:17 Cyclobenzaprine Hcl 5 Mg Tablet PO 5 mg TID PRN Administration Muscle Spasm Docusate Sodium 100 mg 05/13/20 09:00 05/19/20 08:26 Docusate Sodium 100 Mg Capsule PO 100 mg DAILY [facility] Administration Duloxetine HCl 60 mg 05/12/20 17:00 05/18/20 16:57 Duloxetine Hcl 60 Mg Capsule.Dr PO 60 mg DAILY@1700 [facility] Administration Lidocaine 3 patch 05/13/20 09:00 05/19/20 08:26 Lidocaine 5% Patch TOPICAL 3 patch DAILY [facility] Administration Non-Formulary Medication 60 mg 05/19/20 09:00 Denosumab SUB-Q 06/18/20 09:01 [id number] [facility] Ondansetron HCl 8 mg 05/12/20 17:48 Ondansetron Hcl Odt 4 Mg Tablet PO Q6H PRN Nausea Oxycodone/Acetaminophen 1 tablet 05/19/20 13:00 Oxycodone/Acetaminophen
--- NOTE | 2020-05-19 13:16 | PCDIET ---
Nutrition Follow-Up Complete: Nutrition Diagnosis: Inadequate oral intake related to hip fx as evidenced by poor po intake. Nutrition Goal: Meet estimated nutritional needs Goal met. Patient consumed average of 72% of recorded meals since 05/14/20. Patient on phone at time of visit, but spoke with nurse aid who reports patient has been taking Ensure Enlive which is being sent 1x daily. Nurse aid reports patient refused to order lunch tray due to preference for snacks in room. Will monitor. Recommend continuing regular diet with Enlive daily at this time. Last recorded weight is 66.4 kg. Recommend obtaining new weight. Bowel Motility: Small BM documented 04/18/20 with moderate BM on 04/17/20. Labs Reviewed: Hgb (11.4), Hct (34.9), Cr (0.4), Na (132), Ca (7.6) Meds Noted: Phoslo, Coreg, Colace, Pravastatin, Senokot, Zocor, Vitamin D Additional Notes: Hip incision healing well. No documented pressure sores. Will continue to monitor with same goal. Nutrition Monitoring and Evaluation: Will monitor every 7 days.
[2020-05-19 14:00] VITALS: BP 106/43; PULSE 73; RESP 20; TEMP 37; O2SAT 98
[2020-05-19] MEDS: DULoxetine HCL 60 MG CAPSULE.DR PO (16:27)
[2020-05-19 20:45] VITALS: PULSE 80; RESP 20; O2SAT 99
[2020-05-19 22:00] VITALS: BP 112/66; PULSE 82; RESP 20; TEMP 37.4; O2SAT 99
[2020-05-19] MEDS: SIMVASTATIN 20 MG TABLET 40 MG PO (22:10)
[2020-05-19 22:13] VITALS: PULSE 80
[2020-05-19] MEDS: SENNA/DOCUSATE SODIUM TABLET 1 TAB PO (22:14)
[2020-05-20] MEDS: oxyCODONE/ACETAMINOPHEN (*CRX) 5-325 MG TABLET 1 TABLET PO ×4 (01:09→18:38)
[2020-05-20 05:17] LABS: Basophils Percent Auto 0.6 % (0.2-1.2); Eosinophils Percent Auto 0.3 % (0-4.4); Hematocrit 29.2 % (37.0-47.0); Hemoglobin 9.6 g/dL (12.0-15.0); Immature Granulocyte Absolute 0.03 K/mm3 (0.00-0.031); Immature Granulocyte Percent A 0.5 % (0-0.5); Lymphocytes Absolute Auto 1.73 K/mm3 (0.9-3.2); Lymphocytes Percent Auto 27.4 % (18.3-44.2); Mean Corpuscular HGB Conc 32.9 g/dl (32-36); Mean Corpuscular Hemoglobin 31.1 pg (26-34); Mean Corpuscular Volume 94.5 fl (80-100); Mean Platelet Volume 8.7 fl (7.4-10.4); Monocytes Absolute Auto 1.1 K/mm3 (0.1-0.6); Monocytes Percent Auto 17.1 % (2.6-8.5); Neutrophils Absolute Auto 3.4 K/mm3 (1.3-6.7); Neutrophils Percent Auto 54.1 % (45.5-73.1); Platelet Count Result 472 k/mm3 (150-375); Red Blood Count 3.09 M/mm3 (4.2-5.4); Red Cell Distribution Width 16.3 % (11.5-14.5); White Blood Count 6.3 K/mm3 (4.5-10.0)
[2020-05-20 05:22] LABS: Anion Gap 5 mmol/L (8-16); Blood Urea Nitrogen 9 mg/dL (7-17); Calcium 7.6 mg/dL (8.4-10.2); Carbon Dioxide 26 mmol/L (22-30); Chloride 100 mmol/L (98-107); Estimated CRCL calculation 84 ml/min; Estimated Glomerular Filt Rate > 60; Glucose 83 mg/dL (65-105); Potassium 3.9 mmol/L (3.4-5.0); Sodium 131 mmol/L (137-145)
[2020-05-20 05:28] VITALS: BP 93/53; PULSE 65; RESP 20; TEMP 35.9; O2SAT 96
[2020-05-20 06:28] VITALS: PULSE 82
[2020-05-20] MEDS: AMIODARONE HCL 200 MG TABLET PO (06:28)
[2020-05-20 09:52] VITALS: PULSE 82
[2020-05-20] MEDS: BACITRACIN OINTMENT 15 GM TUBE 1 APPLIC TOPICAL ×2 (09:53→22:12)
[2020-05-20] MEDS: CALCIUM ACETATE 667 MG TABLET PO (09:53)
[2020-05-20] MEDS: CLOPIDOGREL BISULFATE 75 MG TABLET PO (09:54)
[2020-05-20] MEDS: CHOLECALCIFEROL 1,000 UNITS TABLET 1000 UNITS PO (09:54)
[2020-05-20] MEDS: PRAVASTATIN SODIUM 20 MG TABLET PO (09:55)
[2020-05-20] MEDS: polyethylene glycoL 3350 17 GM POWD.PACK PO (09:56)
[2020-05-20] MEDS: busPIRone HCL 5 MG TABLET 15 MG PO ×3 (10:44→22:11)
[2020-05-20] MEDS: LIDOCAINE 5% PATCH 3 PATCH TOPICAL (11:12)
[2020-05-20 14:00] VITALS: BP 139/49; PULSE 78; RESP 20; TEMP 36.9; O2SAT 98
--- NOTE | 2020-05-20 15:01 | WPDNEURORHBP ---
Subjective Date/time seen: 05/20/20 15:01 80 years old with comminuted displaced normal right intertrochanteric periprosthetic femur neck fracture continues to be involving the physical therapy and occupational therapy yesterday her family was informed the discs fractured line is not going into the hips and x-rays were obtained to [facility] which shows probable intertrochanteric right hip fracture with comminuted medially displaced lesser trochanter fracture for which comparison studies were suggested patient does have diffuse osteopenia routine lab today revealed hemoglobin of 9.6 platelet count 472 sodium 131 creatinine 0.40 and BUN only 9 clearance is 84 also albumin is 3.4 Functional Status Ambulation Ability Ability to Ambulate 10 Feet: Moderate Assistance X 1 Ambulation Assistive Devices: Cane, Jorge A Exam Narrative: Exam Narrative: awake alert cooperative in no distress ear nose throat exam normal neck supple with no limitation heart regular lungs clear abdomen is soft neurological examination unchanged treatment is being continued as such Objective Data Vital Signs Vital Signs: Vital Signs - 24 hr 05/19/20 20:45 05/19/20 22:00 05/19/20 22:13 Temperature 37.4 C Pulse Rate 80 82 80 Respiratory Rate 20 20 Blood Pressure 112/66 Pulse Oximetry 99 99 05/20/20 05:28 05/20/20 06:28 05/20/20 09:52 Temperature 35.9 C L Pulse Rate 65 82 82 Respiratory Rate 20 Blood Pressure 93/53 L Pulse Oximetry 96 Intake/Output Intake/Output: Intake & Output 05/17/20 05/18/20 05/19/20 05/20/20 23:59 23:59 23:59 23:59 Intake Total 480 720 480 480 Balance 480 720 480 480 Meds/Results Medications: Active Medications Generic Name Dose Route Start Last Admin Trade Name Freq PRN Reason Stop Dose Admin Acetaminophen 1,000 mg 05/12/20 17:39 05/18/20 12:21 Acetaminophen 500 Mg Tablet PO 1,000 mg TID PRN Administration Pain (Scale Score 1-3) Amiodarone HCl 200 mg 05/13/20 06:00 05/20/20 06:28 Amiodarone Hcl 200 Mg Tablet PO 200 mg DAILY@0600 [facility] Administration Bacitracin 1 applic 05/13/20 21:00 05/20/20 09:53 Bacitracin Ointment 15 Gm Tube TOPICAL 1 applic Q12HR [facility] Administration Buspirone HCl 15 mg 05/12/20 21:00 05/20/20 10:44 Buspirone Hcl 5 Mg Tablet PO 15 mg 0900,1600,2100 [facility] Administration Calcium Acetate 667 mg 05/13/20 09:00 05/20/20 09:53 Calcium Acetate 667 Mg Tablet PO 667 mg DAILY [facility] Administration Carvedilol 6.25 mg 05/12/20 21:00 05/20/20 09:52 Carvedilol 6.25 Mg Tablet PO Not Given Q12H [facility] Clopidogrel Bisulfate 75 mg 05/13/20 09:00 05/20/20 09:54 Clopidogrel Bisulfate 75 Mg Tablet PO 75 mg DAILY [facility] Administration Cyclobenzaprine HCl 5 mg 05/12/20 17:39 05/19/20 00:17 Cyclobenzaprine Hcl 5 Mg Tablet PO 5 mg TID PRN Administration Muscle Spasm Docusate Sodium 100 mg 05/13/20 09:00 05/20/20 10:41 Docusate Sodium 100 Mg Capsule PO Not Given DAILY [facility] Duloxetine HCl 60 mg 05/12/20 17:00 05/19/20 16:27 Duloxetine Hcl 60 Mg Capsule.Dr PO 60 mg DAILY@1700 [facility] Administration Lidocaine 3 patch 05/13/20 09:00 05/20/20 11:12 Lidocaine 5% Patch TOPICAL 3 patch DAILY [facility] Administration Non-Formulary Medication 60 mg 05/19/20 09:00 Denosumab SUB-Q 06/18/20 09:01 [id number] [facility] Ondansetron HCl 8 mg 05/12/20 17:48 Ondansetron Hcl Odt 4 Mg Tablet PO Q6H PRN Nausea Oxycodone/Acetaminophen 1 tablet 05/19/20 13:00 05/20/20 12:51 Oxycodone/Acetaminophen (*Crx) 5-325 Mg Tablet PO 1 tablet Q6H [facility] Administration Polyethylene Glycol 17 gm 05/13/20 09:00 05/20/20 09:56 Polyethylene Glycol 3350 17 Gm Powd.Pack PO 17 gm DAILY [facility] Administration Pravastatin Sodium 20 mg 05/13/20 09:00 05/20/20 09:55 Pravastatin Sodium 20 Mg Tablet PO 20 mg DAILY [facility] Administration Senna/Docusate Sodium 1 tab 05/12/20 21:00 05/19/20
[2020-05-20] MEDS: DULoxetine HCL 60 MG CAPSULE.DR PO (16:52)
[2020-05-20 20:00] VITALS: PULSE 74; RESP 20; O2SAT 100
[2020-05-20 22:00] VITALS: BP 106/52; PULSE 74; RESP 20; TEMP 36.9; O2SAT 100
[2020-05-20] MEDS: SENNA/DOCUSATE SODIUM TABLET 1 TAB PO (22:11)
[2020-05-20] MEDS: SIMVASTATIN 20 MG TABLET 40 MG PO (22:11)
[2020-05-20] MEDS: ACETAMINOPHEN 500 MG TABLET 1000 MG PO (23:44)
[2020-05-21] MEDS: oxyCODONE/ACETAMINOPHEN (*CRX) 5-325 MG TABLET 1 TABLET PO ×4 (01:26→18:39)
[2020-05-21 06:00] VITALS: BP 101/51; PULSE 73; RESP 20; TEMP 36.8; O2SAT 98
[2020-05-21 06:37] VITALS: PULSE 75
[2020-05-21] MEDS: AMIODARONE HCL 200 MG TABLET PO (06:37)
[2020-05-21 08:00] VITALS: PULSE 75; RESP 20; O2SAT 98
[2020-05-21] MEDS: busPIRone HCL 5 MG TABLET 15 MG PO ×3 (09:27→19:57)
[2020-05-21] MEDS: DOCUSATE SODIUM 100 MG CAPSULE PO (09:27)
[2020-05-21] MEDS: CHOLECALCIFEROL 1,000 UNITS TABLET 1000 UNITS PO (09:27)
[2020-05-21] MEDS: CALCIUM ACETATE 667 MG TABLET PO (09:27)
[2020-05-21] MEDS: CLOPIDOGREL BISULFATE 75 MG TABLET PO (09:27)
[2020-05-21] MEDS: PRAVASTATIN SODIUM 20 MG TABLET PO (09:28)
[2020-05-21] MEDS: BACITRACIN OINTMENT 15 GM TUBE 1 APPLIC TOPICAL ×2 (09:28→20:04)
[2020-05-21] MEDS: polyethylene glycoL 3350 17 GM POWD.PACK PO (09:28)
[2020-05-21] MEDS: LIDOCAINE 5% PATCH 3 PATCH TOPICAL (09:28)
[2020-05-21] MEDS: traMADol HCL (*CRX) 50 MG TABLET PO (09:32)
--- NOTE | 2020-05-21 11:56 | WPDNEURORHBP ---
Subjective Date/time seen: 05/21/20 11:56 80 years old with comminuted displaced right intertrochanteric periprosthetic femur neck fracture remains afebrile with pulse of 73 respiration 20 blood pressure 101/51, most recent labs with WBC 6.3 hemoglobin 9.6 platelet count 472 sodium 131 BUN 9 creatinine 0.40 and albumin 3.4 continues to be involved in the physical therapy and occupational therapy. Does complain of discomfort in the right knee area which is is still swollen but not red and not tender , stitches look clean. Review of Systems Review of Systems: All systems reviewed & are unremarkable except as noted in HPI and below Functional Status Ambulation Ability Ability to Ambulate 10 Feet: Moderate Assistance X 1 Ambulation Assistive Devices: Cane, Jorge A Exam Narrative: Exam Narrative: on examination she is awake alert very communicative and expressive. Ear nose throat examination normal. Neck is supple. Heart regular. Lungs clear. Abdomen is soft. Neuro examination unchanged. And local exams and knees the right lower extremity is swollen is still around the knee area. Objective Data Vital Signs Vital Signs: Vital Signs - 24 hr 05/20/20 14:00 05/20/20 20:00 05/20/20 22:00 Temperature 36.9 C 36.9 C Pulse Rate 78 74 74 Respiratory Rate 20 20 20 Blood Pressure 139/49 L 106/52 L Pulse Oximetry 98 100 100 05/21/20 06:00 05/21/20 06:37 05/21/20 08:00 Temperature 36.8 C Pulse Rate 73 75 75 Respiratory Rate 20 20 Blood Pressure 101/51 L Pulse Oximetry 98 98 Intake/Output Intake/Output: Intake & Output 05/18/20 05/19/20 05/20/20 05/21/20 23:59 23:59 23:59 23:59 Intake Total 720 480 480 Balance 720 480 480 Meds/Results Medications: Active Medications Generic Name Dose Route Start Last Admin Trade Name Freq PRN Reason Stop Dose Admin Acetaminophen 1,000 mg 05/12/20 17:39 05/20/20 23:44 Acetaminophen 500 Mg Tablet PO 1,000 mg TID PRN Administration Pain (Scale Score 1-3) Amiodarone HCl 200 mg 05/13/20 06:00 05/21/20 06:37 Amiodarone Hcl 200 Mg Tablet PO 200 mg DAILY@0600 [facility] Administration Bacitracin 1 applic 05/13/20 21:00 05/21/20 09:28 Bacitracin Ointment 15 Gm Tube TOPICAL 1 applic Q12HR [facility] Administration Buspirone HCl 15 mg 05/12/20 21:00 05/21/20 09:27 Buspirone Hcl 5 Mg Tablet PO 15 mg 0900,1600,2100 [facility] Administration Calcium Acetate 667 mg 05/13/20 09:00 05/21/20 09:27 Calcium Acetate 667 Mg Tablet PO 667 mg DAILY [facility] Administration Carvedilol 6.25 mg 05/12/20 21:00 05/20/20 09:52 Carvedilol 6.25 Mg Tablet PO Not Given Q12H [facility] Clopidogrel Bisulfate 75 mg 05/13/20 09:00 05/21/20 09:27 Clopidogrel Bisulfate 75 Mg Tablet PO 75 mg DAILY [facility] Administration Cyclobenzaprine HCl 5 mg 05/12/20 17:39 05/19/20 00:17 Cyclobenzaprine Hcl 5 Mg Tablet PO 5 mg TID PRN Administration Muscle Spasm Docusate Sodium 100 mg 05/13/20 09:00 05/21/20 09:27 Docusate Sodium 100 Mg Capsule PO 100 mg DAILY [facility] Administration Duloxetine HCl 60 mg 05/12/20 17:00 05/20/20 16:52 Duloxetine Hcl 60 Mg Capsule. PO 60 mg DAILY@1700 [facility] Administration Lidocaine 3 patch 05/13/20 09:00 05/21/20 09:28 Lidocaine 5% Patch TOPICAL 3 patch DAILY [facility] Administration Non-Formulary Medication 60 mg 05/19/20 09:00 Denosumab SUB-Q 06/18/20 09:01 [id number] [facility] Ondansetron HCl 8 mg 05/12/20 17:48 Ondansetron Hcl Odt 4 Mg Tablet PO Q6H PRN Nausea Oxycodone/Acetaminophen 1 tablet 05/19/20 13:00 05/21/20 06:37 Oxycodone/Acetaminophen (*Crx) 5-325 Mg Tablet PO 1 tablet Q6H [facility] Administration Polyethylene Glycol 17 gm 05/13/20 09:00 05/21/20 09:28 Polyethylene Glycol 3350 17 Gm Powd.Pack PO 17 gm DAILY [facility] Administration Pravastatin Sodium 20 mg 05/13/20 09:00 05/21/20 09:28 Pravastatin Sodium 20 Mg Tablet PO 20 mg DAILY [facility] Ad
[2020-05-21 14:00] VITALS: BP 140/52; PULSE 78; RESP 20; TEMP 36.8; O2SAT 94
[2020-05-21] MEDS: DULoxetine HCL 60 MG CAPSULE.DR PO (17:38)
[2020-05-21] MEDS: SIMVASTATIN 20 MG TABLET 40 MG PO (19:57)
[2020-05-21] MEDS: SENNA/DOCUSATE SODIUM TABLET 1 TAB PO (19:57)
[2020-05-21 22:00] VITALS: BP 110/62; PULSE 70; RESP 18; TEMP 36.8; O2SAT 100
[2020-05-22] MEDS: oxyCODONE/ACETAMINOPHEN (*CRX) 5-325 MG TABLET 1 TABLET PO ×3 (01:45→12:53)
[2020-05-22 05:25] VITALS: BP 109/66; PULSE 80; RESP 18; TEMP 37.2; O2SAT 96
[2020-05-22 06:30] VITALS: PULSE 80
[2020-05-22] MEDS: AMIODARONE HCL 200 MG TABLET PO (06:30)
[2020-05-22] MEDS: busPIRone HCL 5 MG TABLET 15 MG PO ×3 (08:40→20:54)
[2020-05-22] MEDS: CALCIUM ACETATE 667 MG TABLET PO (08:41)
[2020-05-22] MEDS: CLOPIDOGREL BISULFATE 75 MG TABLET PO (08:41)
[2020-05-22] MEDS: CHOLECALCIFEROL 1,000 UNITS TABLET 1000 UNITS PO (08:41)
[2020-05-22] MEDS: DOCUSATE SODIUM 100 MG CAPSULE PO (08:42)
[2020-05-22] MEDS: PRAVASTATIN SODIUM 20 MG TABLET PO (08:42)
[2020-05-22] MEDS: LIDOCAINE 5% PATCH 3 PATCH TOPICAL (08:42)
[2020-05-22] MEDS: polyethylene glycoL 3350 17 GM POWD.PACK PO (08:43)
[2020-05-22] MEDS: BACITRACIN OINTMENT 15 GM TUBE 1 APPLIC TOPICAL ×2 (08:48→20:56)
[2020-05-22 09:35] VITALS: RESP 18; O2SAT 96
[2020-05-22 14:00] VITALS: BP 95/73; PULSE 72; RESP 18; TEMP 36.7; O2SAT 98
--- NOTE | 2020-05-22 14:20 | WPDNEURORHBP ---
Subjective Date/time seen: 05/22/20 14:20 is status post right intertrochanteric periprosthetic comminuted femur neck fracture, routine labs with WBC 6.3 hemoglobin 9.6 platelet count 472 and electrolytes still stable though low sodium also remains afebrile Functional Status Ambulation Ability Ability to Ambulate 10 Feet: Moderate Assistance X 1 Ambulation Assistive Devices: Cane, Jorge A Exam Narrative: Exam Narrative: continues to be awake alert cooperative, his speech nor dysphasic not dysarthric, heart regular with no murmur, lungs clear to auscultation with no rhonchi or crepitations, abdomen soft nontender normal bowel sounds, logical examination is unchanged and psoas the local examination the knees . Objective Data Vital Signs Vital Signs: Vital Signs - 24 hr 05/21/20 22:00 05/22/20 05:25 05/22/20 06:30 Temperature 36.8 C 37.2 C Pulse Rate 70 80 80 Respiratory Rate 18 18 Blood Pressure 110/62 109/66 Pulse Oximetry 100 96 05/22/20 09:35 Temperature Pulse Rate Respiratory Rate 18 Blood Pressure Pulse Oximetry 96 Intake/Output Intake/Output: Intake & Output 05/19/20 05/20/20 05/21/20 05/22/20 23:59 23:59 23:59 23:59 Intake Total 480 480 480 360 Balance 480 480 480 360 Meds/Results Medications: Active Medications Generic Name Dose Route Start Last Admin Trade Name Freq PRN Reason Stop Dose Admin Acetaminophen 1,000 mg 05/12/20 17:39 05/20/20 23:44 Acetaminophen 500 Mg Tablet PO 1,000 mg TID PRN Administration Pain (Scale Score 1-3) Amiodarone HCl 200 mg 05/13/20 06:00 05/22/20 06:30 Amiodarone Hcl 200 Mg Tablet PO 200 mg DAILY@0600 [facility] Administration Bacitracin 1 applic 05/13/20 21:00 05/22/20 08:48 Bacitracin Ointment 15 Gm Tube TOPICAL 1 applic Q12HR [facility] Administration Buspirone HCl 15 mg 05/12/20 21:00 05/22/20 08:40 Buspirone Hcl 5 Mg Tablet PO 15 mg 0900,1600,2100 [facility] Administration Calcium Acetate 667 mg 05/13/20 09:00 05/22/20 08:41 Calcium Acetate 667 Mg Tablet PO 667 mg DAILY [facility] Administration Carvedilol 6.25 mg 05/12/20 21:00 05/20/20 09:52 Carvedilol 6.25 Mg Tablet PO Not Given Q12H [facility] Clopidogrel Bisulfate 75 mg 05/13/20 09:00 05/22/20 08:41 Clopidogrel Bisulfate 75 Mg Tablet PO 75 mg DAILY [facility] Administration Cyclobenzaprine HCl 5 mg 05/12/20 17:39 05/19/20 00:17 Cyclobenzaprine Hcl 5 Mg Tablet PO 5 mg TID PRN Administration Muscle Spasm Docusate Sodium 100 mg 05/13/20 09:00 05/22/20 08:42 Docusate Sodium 100 Mg Capsule PO 100 mg DAILY [facility] Administration Duloxetine HCl 60 mg 05/12/20 17:00 05/21/20 17:38 Duloxetine Hcl 60 Mg Capsule.Dr PO 60 mg DAILY@1700 [facility] Administration Lidocaine 3 patch 05/13/20 09:00 05/22/20 08:42 Lidocaine 5% Patch TOPICAL 3 patch DAILY [facility] Administration Non-Formulary Medication 60 mg 05/19/20 09:00 Denosumab SUB-Q 06/18/20 09:01 [id number] [facility] Ondansetron HCl 8 mg 05/12/20 17:48 Ondansetron Hcl Odt 4 Mg Tablet PO Q6H PRN Nausea Oxycodone/Acetaminophen 1 tablet 05/19/20 13:00 05/22/20 12:53 Oxycodone/Acetaminophen (*Crx) 5-325 Mg Tablet PO 1 tablet Q6H [facility] Administration Polyethylene Glycol 17 gm 05/13/20 09:00 05/22/20 08:43 Polyethylene Glycol 3350 17 Gm Powd.Pack PO 17 gm DAILY [facility] Administration Pravastatin Sodium 20 mg 05/13/20 09:00 05/22/20 08:42 Pravastatin Sodium 20 Mg Tablet PO 20 mg DAILY [facility] Administration Senna/Docusate Sodium 1 tab 05/12/20 21:00 05/21/20 19:57 Senna/Docusate Sodium Tablet PO 1 tab HS [facility] Administration Simvastatin 40 mg 05/12/20 21:00 05/21/20 19:57 Simvastatin 20 Mg Tablet PO 40 mg HS [facility] Administration Tramadol HCl 50 mg 05/12/20 17:39 05/21/20 09:32 Tramadol Hcl (*Crx) 50 Mg Tablet PO 50 mg Q6H PRN Administration Pain (Scale Score 4-6) Vitamin D 1,000 units 05/13/20 09:
[2020-05-22] MEDS: ONDANSETRON HCL ODT 4 MG TABLET 8 MG PO (16:55)
[2020-05-22] MEDS: DULoxetine HCL 60 MG CAPSULE.DR PO (18:25)
[2020-05-22 20:00] VITALS: PULSE 71; RESP 20; O2SAT 97
[2020-05-22 20:39] VITALS: BP 111/58; PULSE 71; RESP 20; TEMP 36.7; O2SAT 97
[2020-05-22] MEDS: SENNA/DOCUSATE SODIUM TABLET 1 TAB PO (20:53)
[2020-05-22] MEDS: SIMVASTATIN 20 MG TABLET 40 MG PO (20:53)
[2020-05-23] MEDS: ACETAMINOPHEN 500 MG TABLET 1000 MG PO ×2 (01:26→09:08)
[2020-05-23 04:31] VITALS: BP 107/57; PULSE 70; RESP 18; TEMP 36; O2SAT 97
[2020-05-23 06:33] VITALS: PULSE 70
[2020-05-23] MEDS: AMIODARONE HCL 200 MG TABLET PO (06:33)
[2020-05-23 08:00] VITALS: PULSE 71; RESP 20; O2SAT 100
[2020-05-23] MEDS: busPIRone HCL 5 MG TABLET 15 MG PO ×3 (09:04→20:59)
[2020-05-23] MEDS: CALCIUM ACETATE 667 MG TABLET PO (09:04)
[2020-05-23] MEDS: CLOPIDOGREL BISULFATE 75 MG TABLET PO (09:04)
[2020-05-23] MEDS: CHOLECALCIFEROL 1,000 UNITS TABLET 1000 UNITS PO (09:04)
[2020-05-23] MEDS: polyethylene glycoL 3350 17 GM POWD.PACK PO (09:05)
[2020-05-23] MEDS: PRAVASTATIN SODIUM 20 MG TABLET PO (09:05)
[2020-05-23] MEDS: DOCUSATE SODIUM 100 MG CAPSULE PO (09:05)
[2020-05-23] MEDS: BACITRACIN OINTMENT 15 GM TUBE 1 APPLIC TOPICAL ×2 (09:05→20:59)
[2020-05-23 09:08] VITALS: TEMP 36
[2020-05-23 14:57] VITALS: BP 126/64; PULSE 71; RESP 20; TEMP 36.6; O2SAT 100
[2020-05-23] MEDS: DULoxetine HCL 60 MG CAPSULE.DR PO (17:25)
[2020-05-23 20:17] VITALS: BP 116/78; PULSE 73; RESP 18; TEMP 36.5; O2SAT 98
[2020-05-23] MEDS: SENNA/DOCUSATE SODIUM TABLET 1 TAB PO (20:58)
[2020-05-23] MEDS: SIMVASTATIN 20 MG TABLET 40 MG PO (20:58)
[2020-05-24 05:47] VITALS: BP 117/82; PULSE 77; RESP 18; TEMP 36.6; O2SAT 98
[2020-05-24] MEDS: busPIRone HCL 5 MG TABLET 15 MG PO ×3 (09:11→22:29)
[2020-05-24] MEDS: CHOLECALCIFEROL 1,000 UNITS TABLET 1000 UNITS PO (09:11)
[2020-05-24] MEDS: CALCIUM ACETATE 667 MG TABLET PO (09:12)
[2020-05-24] MEDS: CLOPIDOGREL BISULFATE 75 MG TABLET PO (09:12)
[2020-05-24] MEDS: PRAVASTATIN SODIUM 20 MG TABLET PO (09:13)
[2020-05-24] MEDS: DOCUSATE SODIUM 100 MG CAPSULE PO (09:13)
[2020-05-24] MEDS: LIDOCAINE 5% PATCH 3 PATCH TOPICAL (09:13)
[2020-05-24] MEDS: polyethylene glycoL 3350 17 GM POWD.PACK PO (09:13)
[2020-05-24 09:17] VITALS: PULSE 75
[2020-05-24] MEDS: AMIODARONE HCL 200 MG TABLET PO (09:17)
[2020-05-24 10:18] LABS: Add Urine Microscopic? YES; Appearance Urine Clear (Clear); Bilirubin Urine Negative (Negative); Blood Urine Negative (Negative); Color Urine Yellow (Yellow); Glucose Urine UA Negative (Negative); Ketones Urine Trace mg/dL (Negative); Leukocyte Esterase Ur Negative LEU/UL (Negative); Mucus Urine Rare /lpf; Nitrate Urine Positive (Negative); Protein Urine Negative (Negative); Specific Grav Ur 1.013 (1.001-1.035); Squamous Epithelial Cell Urine Occasional /hpf (Few); WBC Urine 0-3 /hpf
[2020-05-24] MEDS: ONDANSETRON HCL ODT 4 MG TABLET 8 MG PO (11:00)
[2020-05-24] MEDS: ACETAMINOPHEN 500 MG TABLET 1000 MG PO (11:00)
--- NOTE | 2020-05-24 12:22 | WPDNEURORHBP ---
Subjective Date/time seen: 05/24/20 12:22 79 years old with right intertrochanteric periprosthetic comminuted femur neck fracture has been involved in physical therapy and occupational therapy and is doing fairly well has no specific complaints on today's visit her temp is 36.6? pulse rate of 75 respiration 18 pulse ox 98% blood pressure 117/82 and she has no recent lab Review of Systems Review of Systems: All systems reviewed & are unremarkable except as noted in HPI and below Functional Status Ambulation Ability Ability to Ambulate 10 Feet: Minimum Assistance X 1 Ambulation Assistive Devices: Cane, Jorge A Transfers Ability Ability to Transfer In/Out of Chair: Minimum Assistance X 1 Exam Narrative: Exam Narrative: on examination she is awake alert cooperative has no complaint his speech not dysphasic no dysarthric, heart regular lungs clear abdomen is soft neurological examination unchanged Objective Data Vital Signs Vital Signs: Vital Signs - 24 hr 05/23/20 14:57 05/23/20 20:17 05/24/20 05:47 Temperature 36.6 C 36.5 C 36.6 C Pulse Rate 71 73 77 Respiratory Rate 20 18 18 Blood Pressure 126/64 116/78 117/82 Pulse Oximetry 100 98 98 05/24/20 09:17 Temperature Pulse Rate 75 Respiratory Rate Blood Pressure Pulse Oximetry Intake/Output Intake/Output: Intake & Output 05/21/20 05/22/20 05/23/20 05/24/20 23:59 23:59 23:59 23:59 Intake Total 480 840 590 Balance 480 840 590 Meds/Results Medications: Active Medications Generic Name Dose Route Start Last Admin Trade Name Freq PRN Reason Stop Dose Admin Acetaminophen 1,000 mg 05/12/20 17:39 05/24/20 11:00 Acetaminophen 500 Mg Tablet PO 1,000 mg TID PRN Administration Pain (Scale Score 1-3) Amiodarone HCl 200 mg 05/13/20 06:00 05/24/20 09:17 Amiodarone Hcl 200 Mg Tablet PO 200 mg DAILY@0600 KATRINA Administration Buspirone HCl 15 mg 05/12/20 21:00 05/24/20 09:11 Buspirone Hcl 5 Mg Tablet PO 15 mg 0900,1600,2100 KATRINA Administration Calcium Acetate 667 mg 05/13/20 09:00 05/24/20 09:12 Calcium Acetate 667 Mg Tablet PO 667 mg DAILY KATRINA Administration Carvedilol 6.25 mg 05/12/20 21:00 05/20/20 09:52 Carvedilol 6.25 Mg Tablet PO Not Given Q12H [facility] Clopidogrel Bisulfate 75 mg 05/13/20 09:00 05/24/20 09:12 Clopidogrel Bisulfate 75 Mg Tablet PO 75 mg DAILY KATRINA Administration Cyclobenzaprine HCl 5 mg 05/12/20 17:39 05/19/20 00:17 Cyclobenzaprine Hcl 5 Mg Tablet PO 5 mg TID PRN Administration Muscle Spasm Docusate Sodium 100 mg 05/13/20 09:00 05/24/20 09:13 Docusate Sodium 100 Mg Capsule PO 100 mg DAILY KATRINA Administration Duloxetine HCl 60 mg 05/12/20 17:00 05/23/20 17:25 Duloxetine Hcl 60 Mg Capsule.Dr PO 60 mg DAILY@1700 [facility] Administration Lidocaine 3 patch 05/13/20 09:00 05/24/20 09:13 Lidocaine 5% Patch TOPICAL 3 patch DAILY [facility] Administration Non-Formulary Medication 60 mg 05/19/20 09:00 Denosumab SUB-Q 06/18/20 09:01 [id number] [facility] Ondansetron HCl 8 mg 05/12/20 17:48 05/24/20 11:00 Ondansetron Hcl Odt 4 Mg Tablet PO 8 mg Q6H PRN Administration Nausea Oxycodone/Acetaminophen 1 tablet 05/22/20 18:01 Oxycodone/Acetaminophen (*Crx) 5-325 Mg Tablet PO Q6H PRN Pain Rated 7-10 Polyethylene Glycol 17 gm 05/13/20 09:00 05/24/20 09:13 Polyethylene Glycol 3350 17 Gm Powd.Pack PO 17 gm DAILY KATRINA Administration Pravastatin Sodium 20 mg 05/13/20 09:00 05/24/20 09:13 Pravastatin Sodium 20 Mg Tablet PO 20 mg DAILY KATRINA Administration Senna/Docusate Sodium 1 tab 05/12/20 21:00 05/23/20 20:58 Senna/Docusate Sodium Tablet PO 1 tab HS KATRINA Administration Simvastatin 40 mg 05/12/20 21:00 05/23/20 20:58 Simvastatin 20 Mg Tablet PO 40 mg HS KATRINA Administration Tramadol HCl 50 mg 05/12/20 17:39 05/21/20 09:32 Tramadol Hcl (*Crx) 50 Mg Tablet PO 50 mg Q6H PRN
[2020-05-24 14:00] VITALS: BP 128/76; PULSE 77; RESP 20; TEMP 36.6; O2SAT 100
[2020-05-24] MEDS: DULoxetine HCL 60 MG CAPSULE.DR PO (17:54)
[2020-05-24 20:15] VITALS: PULSE 77; RESP 20; O2SAT 100
[2020-05-24 22:00] VITALS: BP 114/59; PULSE 85; RESP 18; TEMP 37.1; O2SAT 95
[2020-05-24] MEDS: SENNA/DOCUSATE SODIUM TABLET 1 TAB PO (22:30)
[2020-05-24] MEDS: SIMVASTATIN 20 MG TABLET 40 MG PO (22:30)
[2020-05-25 05:24] VITALS: PULSE 75
[2020-05-25] MEDS: AMIODARONE HCL 200 MG TABLET PO (05:24)
[2020-05-25 06:00] VITALS: BP 109/50; PULSE 75; RESP 18; TEMP 36.9; O2SAT 98
[2020-05-25] MEDS: CHOLECALCIFEROL 1,000 UNITS TABLET 1000 UNITS PO (08:42)
[2020-05-25] MEDS: CLOPIDOGREL BISULFATE 75 MG TABLET PO (08:43)
[2020-05-25] MEDS: busPIRone HCL 5 MG TABLET 15 MG PO ×3 (08:43→20:25)
[2020-05-25] MEDS: PRAVASTATIN SODIUM 20 MG TABLET PO (08:43)
[2020-05-25] MEDS: CALCIUM ACETATE 667 MG TABLET PO (08:43)
[2020-05-25] MEDS: LIDOCAINE 5% PATCH 3 PATCH TOPICAL (08:43)
--- NOTE | 2020-05-25 11:46 | WPDNEURORHBP ---
Subjective Date/time seen: 05/25/20 11:46 79 years old with right intertrochanteric periprosthetic comminuted femur neck fracture has been involved in the physical therapy and occupational therapy in and doing fairly well he is afebrile with pulse of 75 respiration 18 pulse ox 98% blood pressure 109/50 and no new lab Review of Systems Review of Systems: All systems reviewed & are unremarkable except as noted in HPI and below Functional Status Ambulation Ability Ability to Ambulate 10 Feet: Minimum Assistance X 1 Ambulation Assistive Devices: Cane, Jorge A Transfers Ability Ability to Transfer In/Out of Chair: Minimum Assistance X 1 Exam Narrative: Exam Narrative: on examination she is awake alert cooperative, speech nor dysphasic no dysarthric not dysphonic, neck supple, heart regular with no murmur, lungs clear to auscultation with no rhonchi or crepitation, abdomen soft nontender normal bowel sounds, neurological examination remained unchanged the wounds clean Objective Data Vital Signs Vital Signs: Vital Signs - 24 hr 05/24/20 14:00 05/24/20 20:15 05/24/20 22:00 Temperature 36.6 C 37.1 C Pulse Rate 77 77 85 Respiratory Rate 20 20 18 Blood Pressure 128/76 114/59 L Pulse Oximetry 100 100 95 05/25/20 05:24 05/25/20 06:00 Temperature 36.9 C Pulse Rate 75 75 Respiratory Rate 18 Blood Pressure 109/50 L Pulse Oximetry 98 Intake/Output Intake/Output: Intake & Output 05/22/20 05/23/20 05/24/20 05/25/20 23:59 23:59 23:59 23:59 Intake Total 840 590 480 Balance 840 590 480 Meds/Results Medications: Active Medications Generic Name Dose Route Start Last Admin Trade Name Freq PRN Reason Stop Dose Admin Acetaminophen 1,000 mg 05/12/20 17:39 05/24/20 11:00 Acetaminophen 500 Mg Tablet PO 1,000 mg TID PRN Administration Pain (Scale Score 1-3) Amiodarone HCl 200 mg 05/13/20 06:00 05/25/20 05:24 Amiodarone Hcl 200 Mg Tablet PO 200 mg DAILY@0600 KATRINA Administration Buspirone HCl 15 mg 05/12/20 21:00 05/25/20 08:43 Buspirone Hcl 5 Mg Tablet PO 15 mg 0900,1600,2100 [facility] Administration Calcium Acetate 667 mg 05/13/20 09:00 05/25/20 08:43 Calcium Acetate 667 Mg Tablet PO 667 mg DAILY [facility] Administration Carvedilol 6.25 mg 05/12/20 21:00 05/20/20 09:52 Carvedilol 6.25 Mg Tablet PO Not Given Q12H [facility] Clopidogrel Bisulfate 75 mg 05/13/20 09:00 05/25/20 08:43 Clopidogrel Bisulfate 75 Mg Tablet PO 75 mg DAILY [facility] Administration Cyclobenzaprine HCl 5 mg 05/12/20 17:39 05/19/20 00:17 Cyclobenzaprine Hcl 5 Mg Tablet PO 5 mg TID PRN Administration Muscle Spasm Docusate Sodium 100 mg 05/13/20 09:00 05/25/20 08:45 Docusate Sodium 100 Mg Capsule PO Not Given DAILY [facility] Duloxetine HCl 60 mg 05/12/20 17:00 05/24/20 17:54 Duloxetine Hcl 60 Mg Capsule.Dr PO 60 mg DAILY@1700 [facility] Administration Lidocaine 3 patch 05/13/20 09:00 05/25/20 08:43 Lidocaine 5% Patch TOPICAL 3 patch DAILY [facility] Administration Non-Formulary Medication 60 mg 05/19/20 09:00 Denosumab SUB-Q 06/18/20 09:01 [id number] [facility] Ondansetron HCl 8 mg 05/12/20 17:48 05/24/20 11:00 Ondansetron Hcl Odt 4 Mg Tablet PO 8 mg Q6H PRN Administration Nausea Oxycodone/Acetaminophen 1 tablet 05/22/20 18:01 Oxycodone/Acetaminophen (*Crx) 5-325 Mg Tablet PO Q6H PRN Pain Rated 7-10 Polyethylene Glycol 17 gm 05/13/20 09:00 05/25/20 08:45 Polyethylene Glycol 3350 17 Gm Powd.Pack PO Not Given DAILY [facility] Pravastatin Sodium 20 mg 05/13/20 09:00 05/25/20 08:43 Pravastatin Sodium 20 Mg Tablet PO 20 mg DAILY [facility] Administration Senna/Docusate Sodium 1 tab 05/12/20 21:00 05/24/20 22:30 Senna/Docusate Sodium Tablet PO 1 tab HS [facility] Administration Simvastatin 40 mg 05/12/20 21:05/24/20 22:30 Simvastatin 20 Mg Tablet PO 40 mg HS KATRINA Administration Tramadol HCl 50 mg
[2020-05-25] MEDS: ACETAMINOPHEN 500 MG TABLET 1000 MG PO (12:31)
[2020-05-25 14:05] VITALS: BP 114/67; PULSE 76; RESP 28; TEMP 36.3; O2SAT 98
--- NOTE | 2020-05-25 15:45 | PCPTNOTE ---
Marine Beaza Jaime was evaluated for a nikkie cane on 05/25/2020 by this physical therapist certified surgical assistant. The nikkie cane will resolve patient's mobility limitations and will be used for ADL's within the home. The patient can safely use the nikkie cane. ?The nikkie cane will resolve the patient?s mobility deficits, including impaired balance, decreased strength and endurance.
--- NOTE | 2020-05-25 16:03 | PCPTNOTE ---
Cris AAllison Kuhn, JORDAN completed an inpatient rehab wheelchair evaluation on Marine Baeza [facility] on 05/25/2020. The patient is unable to safely and independently ambulate household distances due to their current impairments. Their diagnosis is Right Hip Fracture and their impairments include decreased strength, decreased endurance, decreased range of motion, decreased balance and lower extremity weakness. Marine's weight bearing status is weight-bearing as tolerated on the bilateral lower legs and non weight bearing right upper extremity. The patient demonstrates significant functional mobility limitations that impair their ability to participate in mobility-related activities of daily living (MRADLs), including toileting, feeding, dressing, grooming, and bathing in the customary locations in the home. These limitations cannot be sufficiently resolved by the use of an appropriately fitted cane or walker. It is recommended that the patient utilize a wheelchair for functional mobility within the home in order to facilitate optimal safety, independence and participation in all MRADL's and adequately access their home environment on a regular basis. The patient's home provides adequate access between rooms, maneuvering space, and surfaces to accommodate the recommended wheelchair. The use of a wheelchair for functional mobility is strongly recommended and the patient is receptive to using the wheelchair. The use of this wheelchair will significantly improve the patient's ability to participate in MRADLS and the patient will use it on a regular basis in the home. This will facilitate optimal safety, independence, and participation. The patient has demonstrated sufficient physical and mental capabilities needed to safely propel a manual wheelchair that is provided in the home during a typical day. Recommended Wheelchair Frame: 18x18 Recommended Wheelchair Size: standard Recommended Wheelchair Cushion: standard Wheelchair Leg Recommendations: bilateral elevated leg rests - Elevating legrests are recommended because the patient has significant edema of the lower extremities that requires an elevating legrest. -Anti-tippers are recommended due to patient demonstrating increased risk for falls. They would benefit from anti-tippers with added safety and stabilization. Cris Kuhn METER REPAIRER 05-25-2020 Evaluating Therapist Date I agree with and certify that the above recommendation is medically necessary. Referring Physician Date I agree with and certify that the above recommendation is medically necessary. Referring Physician Date
[2020-05-25] MEDS: DULoxetine HCL 60 MG CAPSULE.DR PO (17:03)
[2020-05-25] MEDS: SIMVASTATIN 20 MG TABLET 40 MG PO (20:26)
[2020-05-25 20:32] VITALS: BP 106/88; PULSE 75; RESP 22; TEMP 36.1; O2SAT 100
[2020-05-26 05:21] VITALS: BP 109/64; PULSE 78; RESP 20; TEMP 36.6; O2SAT 97
[2020-05-26 05:26] VITALS: PULSE 78
[2020-05-26] MEDS: AMIODARONE HCL 200 MG TABLET PO (05:26)
[2020-05-26] MEDS: ACETAMINOPHEN 500 MG TABLET 1000 MG PO ×2 (05:48→16:43)
[2020-05-26] MEDS: busPIRone HCL 5 MG TABLET 15 MG PO ×3 (07:54→21:38)
[2020-05-26] MEDS: CALCIUM ACETATE 667 MG TABLET PO (07:55)
[2020-05-26] MEDS: CHOLECALCIFEROL 1,000 UNITS TABLET 1000 UNITS PO (07:55)
[2020-05-26] MEDS: CLOPIDOGREL BISULFATE 75 MG TABLET PO (07:55)
[2020-05-26] MEDS: LIDOCAINE 5% PATCH 3 PATCH TOPICAL (07:56)
[2020-05-26] MEDS: PRAVASTATIN SODIUM 20 MG TABLET PO (07:56)
[2020-05-26 08:54] VITALS: RESP 20; O2SAT 97
--- NOTE | 2020-05-26 10:06 | WPDNEURORHBP ---
Subjective Date/time seen: 05/26/20 10:06 discussed in the team meeting planning to discharge tomorrow but question is whether she should go home on get more therapy at the prison unit family is interested in transferring her to the prison unit she remains afebrile with temp of 36.6? pulse 78 respiration 20 and pulse ox 97% on room air, there has been no changes in her medications recently and the last lab was on May 20, 2020 Review of Systems Review of Systems: All systems reviewed & are unremarkable except as noted in HPI and below Functional Status Ambulation Ability Ability to Ambulate 10 Feet: Minimum Assistance X 1 Ambulation Assistive Devices: Cane, Jorge A Transfers Ability Ability to Transfer In/Out of Chair: Minimum Assistance X 1 Exam Const: General: cooperative, comfortable and no acute distress Nutritional Appearance: average body habitus Orientation/consciousness: patient oriented x3 Limitations: physical limitations HENMT: Head: normocephalic Ears: hearing grossly normal bilaterally General nose exam: No nasal discharge present Face and sinus: normal facial exam Mouth: Yes Normal oral and palatal mucosa present and Yes tongue normal Eyes: General: appearance normal, both eyes and all related structures Periorbital: periorbital findings normal Conjunctivae: conjunctivae normal Sclera: sclerae normal Pupils: Equal, round and reactive pupils present EOM: EOMs intact bilaterally Neck: Neck: full ROM Resp: Effort & Inspection: normal respiratory effort Auscultation: clear to auscultation bilaterally Cardio: Jugular venous distension: no JVD Rate: regular rate GI: GI Palp: Yes No hepatosplenomegaly present Auscultation: normal bowel sounds Back/Spine/Pelvis: Back: no CVA tenderness Cervical Spine: cervical ROM normal Skin: General skin exam: normal color Lesions: no lesions Wounds: wounds noted Neuro: General: patient oriented x3 and moves all extremities Cranial nerves: Yes CN's II-XII intact bilaterally Cognition (Neuro): normal cognition Speech: normal speech Gait exam (Neuro): Normal gait present Motor exam (neuro): 5/5 motor strength present throughout Sensory Exam: normal sensation Deep tendon reflexes (DTR's): Right triceps reflex intensity grade: 1+, Left triceps reflex intensity grade: 1+, Rt Biceps (C5, C6): 1+, Left biceps reflex intensity grade: 1+, Right brachioradialis reflex intensity grade: 1+, Left brachioradialis reflex intensity grade: 1+, Right patellar reflex intensity grade: 1+, Left patellar reflex intensity grade: 1+, Right ankle reflex intensity grade: 1+ and Left ankle reflex intensity grade: 1+ Plantar Reflex Responses: downgoing: bilateral Coordination: [id number] test normal Psych: Appearance: grossly normal Mental Status: mental status grossly normal Speech and movement: Normal speech and movement present Affect: normal affect Attitude: cooperative Thought process: Normal thought process present Thought content: Yes Normal thought content present Insight: Good insight present (Psych) Judgement: Good judgement present (Psych) Objective Data Vital Signs Vital Signs: Vital Signs - 24 hr 05/25/20 14:05 05/25/20 20:32 05/26/20 05:21 Temperature 36.3 C L 36.1 C L 36.6 C Pulse Rate 76 75 78 Respiratory Rate 28 H 22 H 20 Blood Pressure 114/67 106/88 109/64 Pulse Oximetry 98 100 97 05/26/20 05:26 05/26/20 08:54 Temperature Pulse Rate 78 Respiratory Rate 20 Blood Pressure Pulse Oximetry 97 Intake/Output Intake/Output: Intake & Output 05/23/20 05/24/20 05/25/20 05/26/20 23:59 23:59 23:59 23:59 Intake Total 590 480 Balance 590 480 Meds/Results Medications: Active Medications Generic Name Dose Route Start Last Admin Trade Name Freq PRN Reason Stop Dose Admin Acetaminophen 1,000 mg 05/12/20 17:39 05/26/20 05:48 Acetaminophen 500 Mg Tablet PO 1,000 mg TID PRN Administration Pain (Scale Score 1-
[2020-05-26 14:00] VITALS: BP 117/66; PULSE 80; RESP 20; TEMP 36.6; O2SAT 100
--- NOTE | 2020-05-26 14:12 | PCDIET ---
Nutrition Follow-Up Complete: Nutrition Diagnosis: Inadequate oral intake related to hip fx as evidenced by poor po intake. Nutrition Goal: Meet estimated nutritional needs Goal in progress. Average intake from last review was 42% of recorded meals, though patient does report taking Ensure Enlive BID. Recommend continuing Enlive BID with regular diet. Patient c/o feeling full quickly, so only having Ensure Enlive, milk and gelatin for lunch. Protein rich foods and small, frequent meals encouraged. Last recorded weight is 66.4 kg. Recommend obtaining new weight. Bowel Motility: +BM today. Labs Reviewed: Hgb (9.6), Hct (29.2), Cr (0.4), Na (131), Ca (7.6) Meds Noted: Phoslo, Pravastatin, Zocor, Vitamin D Additional Notes: No documented skin breakdown. Will continue to monitor if patient remains in house. Nutrition Monitoring and Evaluation: Will follow up in 5 days.
[2020-05-26] MEDS: DULoxetine HCL 60 MG CAPSULE.DR PO (16:40)
[2020-05-26 19:42] LABS: SARS-CoV-2 RNA PCR Positive
[2020-05-26] MEDS: SIMVASTATIN 20 MG TABLET 40 MG PO (21:41)
[2020-05-26] MEDS: SENNA/DOCUSATE SODIUM TABLET 1 TAB PO (21:43)
[2020-05-26 22:54] VITALS: BP 112/95; PULSE 61; RESP 20; TEMP 36.7; O2SAT 99
--- NOTE | 2020-05-27 01:24 | PC.NURSE ---
Pts daughter called. Informed of patients positive Covid test result and need for transfer to the hospital setting. Dr Solitario here to see patient. Pt will be transferred to [facility], report to Diomedes PINEDO.
--- NOTE | 2020-06-02 13:01 | PM.TDS ---
Transfer Discharge Sum: Prov Provider Date of admission: 05/12/20 16:20 Primary care physician: UNKNOWN,DOCTOR Admitting clinician: Tonio Seth MD DS: Admitting Diagnosis Admitting Diagnosis Admitting Diagnosis: right femur fracture with all the comorbid conditions particularly right shoulder fracture Transfer Discharge Sum: Med Medications Active and Home Medications: Home Medications Prolia 60 mg SUBCUT [id number] 05/12/20 [History Confirmed 05/28/20] acetaminophen 1,000 mg PO TID PRN 05/12/20 [History Confirmed 05/28/20] amiodarone 200 mg PO DAILY@0600 05/12/20 [History Confirmed 05/28/20] buspirone 15 mg PO TID 05/12/20 [History Confirmed 05/28/20] calcium acetate(phosphat bind) 667 mg PO DAILY 05/12/20 [History Confirmed 05/28/20] carvedilol 6.25 mg PO Q12H 05/12/20 [History Confirmed 05/28/20] cholecalciferol (vitamin D3) 25 mcg PO DAILY 05/12/20 [History Confirmed 05/28/20] clopidogrel 75 mg PO DAILY 05/12/20 [History Confirmed 05/28/20] cyclobenzaprine 5 mg PO TID PRN 05/12/20 [History Confirmed 05/28/20] docusate sodium 100 mg PO DAILY 05/12/20 [History Confirmed 05/28/20] duloxetine 60 mg PO DAILY@1700 05/12/20 [History Confirmed 05/28/20] lidocaine [Lidoderm] 3 patch TOPICAL DAILY 05/12/20 [History Confirmed 05/28/20] ondansetron 8 mg PO Q6H PRN 05/12/20 [History Confirmed 05/28/20] polyethylene glycol 3350 17 g PO DAILY 05/12/20 [History Confirmed 05/28/20] pravastatin 20 mg PO DAILY 05/12/20 [History Confirmed 05/28/20] sennosides-docusate sodium 1 tab-cap PO HS 05/12/20 [History Confirmed 05/28/20] simvastatin 40 mg PO HS 05/12/20 [History Confirmed 05/28/20] tramadol 50 mg PO Q6H PRN 30 Days #60 tablet MDD 4 05/26/20 [Rx Confirmed 05/28/20] enoxaparin [Lovenox] 40 mg SUBCUT DAILY #0 ml 05/28/20 [Rx Confirmed 05/28/20] sodium chloride [Saline Mist] 1 spray INTRANASAL Q6HR PRN #30 ml 05/28/20 [Rx Confirmed 05/28/20] Transfer Discharge Sum: Hosp Hospital Course Hospital course: Marine Sandoval is a 79 year old female ADMISSION FUNCTION: Eating [Set Up Only] Oral Care [] Toileting Hygiene [] Shower/Bathing [] Upper Body Dressing [] Lower Body Dressing [] Donning/[place] Footwear [] Rolling Left and Right [] Sit to Lying [] Lying to Sitting [] Sit to Stand [] Bed to Chair Transfers [] Toilet Transfers [] Car Transfers [] Walking 10' [] Walking 50' with Two Turns [] Walking 150' [] Curb or Step [] 4 Steps [] 12 Steps [] Picking Up Object [] [Wheelchair Mobility 50'] [] [Wheelchair Mobility 150'] [] GOALS: Eating [INDEPENDENT] Oral Care [INDEPENDENT] Toileting Hygiene [INDEPENDENT] Shower/Bathing [INDEPENDENT] Upper Body Dressing [INDEPENDENT] Lower Body Dressing [INDEPENDENT] Donning/Col[place]idge Footwear [INDEPENDENT] Rolling Left and Right [INDEPENDENT] Sit to Lying [INDEPENDENT] Lying to Sitting [INDEPENDENT] Sit to Stand [INDEPENDENT] Bed to Chair Transfers [INDEPENDENT] Toilet Transfers [INDEPENDENT] Car Transfers [INDEPENDENT] Walking 10' [INDEPENDENT] Walking 50' with Two Turns [INDEPENDENT] Walking 150' [INDEPENDENT] Curb or Step [INDEPENDENT] 4 Steps [INDEPENDENT] 12 Steps [INDEPENDENT] Picking Up Object [INDEPENDENT] [Wheelchair Mobility 50'] [INDEPENDENT] [Wheelchair Mobility 150'] [INDEPENDENT] DISCHARGE PERFORMANCE: Eating [INDEPENDENT] Oral Care [INDEPENDENT] Toileting Hygiene [INDEPENDENT] Shower/Bathing [INDEPENDENT] Upper Body Dressing [INDEPENDENT] Lower Body Dressing [INDEPENDENT] Donning/Coleridge Footwear [INDEPENDENT] Rolling Left and Right [INDEPENDENT] Sit to Lying [INDEPENDENT] Lying to Sitting [INDEPENDENT] Sit to Stand [INDEPENDENT] Bed to Chair Transfers [INDEPENDENT] Toilet Transfers [INDEPENDENT] Car Transfers [INDEPENDENT] Walking 10' [INDEPENDENT] Walking 50' with Two Turns [INDEPENDENT] Walking 150' [INDEPENDENT] Curb or Step [INDEPENDENT] 4 Steps [INDEPENDENT] 12 Steps [INDEPENDENT] Picking Up Object [INDEPENDENT] [Wheelchair Mobility 50'] [INDEPENDENT
== END 2020-05-27 01:32 | disposition short-term general hospital (02) | DRG 178 ==
PROVIDERS: Admitting Provider Psychiatry & Neurology Neurology; Visit Provider Psychiatry & Neurology Neurology
DX: U07.1 COVID-19 (principal); M51.06 Intervertebral disc disorders with myelopathy, lumbar region; S72.141D Displaced intertrochanteric fracture of right femur, subsequent encounter for closed fracture with routine healing; M97.01XD Periprosthetic fracture around internal prosthetic right hip joint, subsequent encounter; S42.211D Unspecified displaced fracture of surgical neck of right humerus, subsequent encounter for fracture with routine healing; W19.XXXD Unspecified fall, subsequent encounter; D72.829 Elevated white blood cell count, unspecified; E78.5 Hyperlipidemia, unspecified; F41.9 Anxiety disorder, unspecified; I25.10 Atherosclerotic heart disease of native coronary artery without angina pectoris; I10 Essential (primary) hypertension; I48.91 Unspecified atrial fibrillation; I25.2 Old myocardial infarction; M19.90 Unspecified osteoarthritis, unspecified site; M17.11 Unilateral primary osteoarthritis, right knee; M85.80 Other specified disorders of bone density and structure, unspecified site; M51.16 Intervertebral disc disorders with radiculopathy, lumbar region
CPT/HCPCS: 36415; 73502; 80048; 80053; 81001; 85025; 97110; 97116; 97140; 97161; 97166; 97530; 97535; 97542; A9270; C9803; U0003

== ENCOUNTER 2020-05-27 02:55 | Observation (INO) | payer MEDICARE, OTHER, SELFPAY ==
[2020-05-27] VITALS (8 sets, daily range): BP systolic 97–171; BP diastolic 51–70; PULSE 64–81; RESP 16–18; TEMP 36.2–36.8; O2SAT 97–100; BMI 22.0
--- NOTE | ~2020-05-27 | XR_ITS ---
XR chest 1V portable 05/27/2020 03:19 Indication: Covid19 Procedure: AP portable chest Comparison: No prior studies for comparison. Findings: Bibasilar infiltrates. Heart size normal. There is a healing right humeral neck fracture. T here are vertebroplasty changes in the lower thoracic spine with chronic compression fractures. Impression: 1: Bibasilar infiltrates, atelectasis versus pneumonia. 2: Healing right humeral neck fracture with callus formation. Reviewed, dictated and finalized at location A. OPEDIC PHYSICIAN Impression: 1: Bibasilar infiltrates, atelectasis versus pneumonia. 2: Healing right humeral neck fracture with callus formation.
--- NOTE | 2020-05-27 02:31 | ADMGEN ---
This patient[facility], was admitted to [facility] Surg Room 306-01. Patient/family oriented to hospital policies and general routines including ID bracelet, bed and alarms, visiting hours, pain management, procedures, bathroom and other care routines, personal items, smoking policy, room service/diet, and visiting hours. Information on how to activate the Rapid Response Team has been discussed. Patient/Family are encouraged to report perceived risks to care and to ask questions if they do not understand what they are told or what they should do.
--- NOTE | 2020-05-27 03:00 | PM.IMHP ---
H&P: HPI History of Present Illness Date/Time: 05/27/20 03:00 Chief Complaint: Tested positive for COVID-19 while on [facility] rehab unit. Narrative: This is a pleasant 79-year-old female with known past medical history of chronic hypertension, hyperlipidemia, coronary artery disease who presented to the hospital for rehab after suffering multiple falls over the past month resulting in a comminuted displaced periprosthetic intertrochanteric right femoral neck fracture and previous right humeral fracture. The patient has been on amiodarone after having atrial fibrillation post operatively. She has been undergoing rehab in our TR unit. The patient was planned to be discharged to [facility] and underwent routine COVID-19 testing which incidentally came back positive tonterry. I was asked to directly admit the patient to our hospitalist service secondary to her COVID-19 result. On my encounter with the patient natanael she is resting peacefully in bed with no complaints. She denies any significant pain of her right arm or hip. She also denies any recent fevers, chills, coughing, shortness of breath, chest pain, palpitations, headache, nausea, vomting, abdominal pain, dysuria, hematuria, diarrhea, or rectal bleeding. No other complaints. Review of Systems Review of Systems: All systems reviewed & are unremarkable except as noted in HPI and below PMFSH Past Medical History Medical History Anxiety Atrial fibrillation Coronary artery disease Femur fracture, right ongoing pain Hyperlipidemia Hypertension Lumbar radiculopathy Right humeral fracture Surgical History Surgical History History of hip surgery Family History Family History Mother Acute myocardial infarction Father Acute myocardial infarction Sibling Diabetes mellitus Social History Social History Smoking status: Never smoker Second hand tobacco smoke exposure: No Alcohol intake: never Substance use: never Gender identity (if verbalized by the patient): Female Sexual Orientation (if Verbalized by the Patient): Straight or Heterosexual Spiritual care concerns: No Meds Home Medications and Allergies Home Medications Medication Instructions Recorded Confirmed Type Prolia 60 mg SUBCUT [id number] 05/12/20 05/28/20 History acetaminophen 1,000 mg PO TID PRN 05/12/20 05/28/20 History amiodarone 200 mg PO DAILY@0600 05/12/20 05/28/20 History buspirone 15 mg PO TID 05/12/20 05/28/20 History calcium acetate(phosphat bind) 667 mg PO DAILY 05/12/20 05/28/20 History carvedilol 6.25 mg PO Q12H 05/12/20 05/28/20 History cholecalciferol (vitamin D3) 25 mcg PO DAILY 05/12/20 05/28/20 History clopidogrel 75 mg PO DAILY 05/12/20 05/28/20 History cyclobenzaprine 5 mg PO TID PRN 05/12/20 05/28/20 History docusate sodium 100 mg PO DAILY 05/12/20 05/28/20 History duloxetine 60 mg PO DAILY@1700 05/12/20 05/28/20 History lidocaine [Lidoderm] 3 patch TOPICAL DAILY 05/12/20 05/28/20 History ondansetron 8 mg PO Q6H PRN 05/12/20 05/28/20 History polyethylene glycol 3350 17 g PO DAILY 05/12/20 05/28/20 History pravastatin 20 mg PO DAILY 05/12/20 05/28/20 History sennosides-docusate sodium 1 tab-cap PO HS 05/12/20 05/28/20 History simvastatin 40 mg PO HS 05/12/20 05/28/20 History tramadol 50 mg PO Q6H PRN 30 Days #60 05/26/20 05/28/20 Rx tablet MDD 4 enoxaparin [Lovenox] 40 mg SUBCUT DAILY #0 ml 05/28/20 05/28/20 Rx sodium chloride [Saline Mist] 1 spray INTRANASAL Q6HR PRN #30 ml 05/28/20 05/28/20 Rx Allergies Allergy/AdvReac Type Severity Reaction Status Date / Time meperidine Allergy Unknown Verified 05/12/20 17:10 propoxyphene Allergy Unknown Verified 05/12/20 17:11 hydrocodone AdvReac Confusion Verified 05/12/20 17:43 hydromorphone AdvReac C
--- NOTE | 2020-05-27 03:07 | ECG_ITS ---
Measurements Intervals Desha Rate: 73 P: 24 SC: 148 QRS: -3 QRSD: 129 T: -24 QT: 421 QTc: 466 Interpretive Statements SINUS RHYTHM RIGHT BUNDLE BRANCH BLOCK BASELINE ARTIFACT- II, III, AVF, V6 ABNORMAL ECG Electronically Signed On 05-27-2020 6:49:37 [employer]ENS [employer]SEM[employer] by Pratik Pineda D.O.
[2020-05-27] MEDS: ACETAMINOPHEN 325 MG TABLET 650 MG PO ×2 (05:55→21:17)
[2020-05-27] MEDS: AMIODARONE HCL 200 MG TABLET PO (06:13)
[2020-05-27 06:29] LABS: Basophils Percent Auto 0.7 % (0.2-1.2); Eosinophils Percent Auto 0.2 % (0-4.4); Hematocrit 33.1 % (37.0-47.0); Hemoglobin 10.8 g/dL (12.0-15.0); Immature Granulocyte Absolute 0.02 K/mm3 (0.00-0.031); Immature Granulocyte Percent A 0.5 % (0-0.5); Lymphocytes Absolute Auto 1.63 K/mm3 (0.9-3.2); Lymphocytes Percent Auto 39.7 % (18.3-44.2); Mean Corpuscular HGB Conc 32.6 g/dl (32-36); Mean Corpuscular Hemoglobin 30.2 pg (26-34); Mean Corpuscular Volume 92.5 fl (80-100); Mean Platelet Volume 8.9 fl (7.4-10.4); Monocytes Absolute Auto 0.6 K/mm3 (0.1-0.6); Monocytes Percent Auto 15.6 % (2.6-8.5); Neutrophils Absolute Auto 1.8 K/mm3 (1.3-6.7); Neutrophils Percent Auto 43.3 % (45.5-73.1); Platelet Count Result 360 k/mm3 (150-375); Red Blood Count 3.58 M/mm3 (4.2-5.4); Red Cell Distribution Width 15.5 % (11.5-14.5); White Blood Count 4.1 K/mm3 (4.5-10.0)
[2020-05-27 06:50] LABS: Alanine Aminotransferase 17 U/L (4-35); Albumin Level 3.1 g/dL (3.5-5.1); Alkaline Phosphatase 117 U/L (38-126); Anion Gap 4 mmol/L (8-16); Aspartate Amino Transferase 39 U/L (14-36); Bilirubin,Total 0.6 mg/dL (0.2-1.3); Blood Urea Nitrogen 9 mg/dL (7-17); Calcium 7.8 mg/dL (8.4-10.2); Carbon Dioxide 28 mmol/L (22-30); Chloride 99 mmol/L (98-107); Estimated CRCL calculation 78 ml/min; Estimated Glomerular Filt Rate > 60; Glucose 80 mg/dL (65-105); Magnesium 1.7 mg/dL (1.6-2.3); Potassium 3.7 mmol/L (3.4-5.0); Sodium 131 mmol/L (137-145)
[2020-05-27] MEDS: ENOXAPARIN 40 MG/0.4 ML SYRINGE SUB-Q (08:23)
[2020-05-27] MEDS: CHOLECALCIFEROL 1,000 UNITS TABLET 1000 UNITS PO (08:24)
[2020-05-27] MEDS: CALCIUM ACETATE 667 MG TABLET PO (08:24)
[2020-05-27] MEDS: CLOPIDOGREL BISULFATE 75 MG TABLET PO (08:24)
[2020-05-27] MEDS: carvediloL 6.25 MG TABLET PO ×2 (08:24→21:17)
[2020-05-27] MEDS: busPIRone HCL 5 MG TABLET 15 MG PO ×3 (08:24→17:23)
[2020-05-27] MEDS: DOCUSATE SODIUM 100 MG CAPSULE PO (08:24)
[2020-05-27] MEDS: LIDOCAINE 5% PATCH 3 PATCH TOPICAL (08:24)
[2020-05-27 08:26] LABS: Ovalocytes 1+ (NORMAL); Platelet Estimate Adequate (Adequate); Poikilocytosis 1+ (NORMAL); Stomatocytes 1+ (NORMAL)
--- NOTE | 2020-05-27 16:28 | PM.IMPN ---
Progress Note: A&P Assessment and Plan (1) COVID-19: Code(s): U07.1 - COVID-19 Status: Acute Assessment and Plan: The patient was at our acute rehab floor for therapy after hip surgery at [place]. She was doing well with therapy and going to be discharged to a skilled rehab facility when they tested her for COVID during placement and her results came back positive. The patient only reports some slight fatigue otherwise is asymptomatic with stable vital signs and labs. She was admitted to our hospitalist service in observation for COVID-19. We are in the process of finding her placement to a skilled rehab facility for further therapy that will accept COVID patients. The patient was placed in observation status. Continue droplet isolation. Continue supportive care. Antipyetics as needed. Bronchodilators as needed. Oxygen as needed. (2) Femur fracture, right: Code(s): S72.91XA - Unspecified fracture of right femur, initial encounter for closed fracture Status: Acute Assessment and Plan: Continue PT/OT and rehab. (3) Right humeral fracture: Code(s): S42.301A - Unspecified fracture of shaft of humerus, right arm, initial encounter for closed fracture Status: Chronic Assessment and Plan: Splint in place to right arm. Continue Ortho recommendations. (4) Hypertension: Code(s): I10 - Essential (primary) hypertension Status: Chronic Assessment and Plan: Stable, Blood pressure 111/68. Monitor blood pressure. Continue coreg (5) Hyperlipidemia: Code(s): E78.5 - Hyperlipidemia, unspecified Status: Chronic Assessment and Plan: Continue simvastatin (6) Coronary artery disease: Code(s): I25.10 - Atherosclerotic heart disease of [place] coronary artery without angina pectoris Status: Chronic Assessment and Plan: No chest pain. Continue plavix and Coreg. (7) Anxiety: Code(s): F41.9 - Anxiety disorder, unspecified Status: Chronic Assessment and Plan: Continue buspirone. (8) Atrial fibrillation: Code(s): I48.91 - Unspecified atrial fibrillation Status: Chronic Assessment and Plan: Continue amiodarone. Time Spent With Patient Time with patient: 25 - 35 minutes Subjective Date/time seen: 05/27/20 16:28 Interval history: Date of service 05/27/2020: The patient reports feeling well, without any symptoms of COVID other than some slight fatigue. She also states she has been having some trouble swallowing solid foods and states it gets ?stuck?. She has mostly been drinking her ensures and fluids and may be some crackers. She denies any similar symptoms before. She denies any fevers, chills, nausea, vomiting, abdominal pain, chest pain, shortness of breath, cough, leg swelling, calf pain, lack of taste or smell, or any other symptoms at this time. Review of Systems Review of Systems: All systems reviewed & are unremarkable except as noted in HPI and below Exam Narrative: Exam Narrative: General: Jtzjsjc-[id number]-lcxa-old woman sitting up in bed talking to her daughter on the phone. Appears comfortable on room air. In no acute distress. Skin: No jaundice or cyanosis. Good skin turgor. Neck: Full range of motion. Supple. Respiratory: Lungs are clear to auscultation bilaterally. No wheezing, rales or rhonchi. No bony chest wall tenderness. Cardiovascular: The heart has a regular rate and rhythm without murmur. Lower extremities: No lower extremity edema. Distal pulses are easily palpated. No calf tenderness
[2020-05-27] MEDS: DULoxetine HCL 60 MG CAPSULE.DR PO (17:23)
--- NOTE | 2020-05-27 17:42 | PC.NURSE ---
daughter Monalisa called and asked for pt to be re -swabbed under the request of family. I called and talked to Ruchi PRESLEY about the family requests. She said she will address this request tomorrow morning.
[2020-05-27] MEDS: SIMVASTATIN 20 MG TABLET 40 MG PO (21:16)
[2020-05-28] VITALS: BP 92/51; PULSE 69; RESP 16; TEMP 36.9; O2SAT 97
[2020-05-28] MEDS: ACETAMINOPHEN 325 MG TABLET 650 MG PO ×2 (02:12→05:57)
[2020-05-28 04:00] VITALS: BP 113/59; PULSE 62; RESP 18; TEMP 36.6; O2SAT 97
[2020-05-28 05:51] VITALS: PULSE 70
[2020-05-28] MEDS: AMIODARONE HCL 200 MG TABLET PO (05:51)
[2020-05-28 08:00] VITALS: BP 121/84; PULSE 64; PULSE 75; RESP 16; TEMP 36.8; O2SAT 99
[2020-05-28] MEDS: ENOXAPARIN 40 MG/0.4 ML SYRINGE SUB-Q (08:48)
[2020-05-28] MEDS: CALCIUM ACETATE 667 MG TABLET PO (08:48)
[2020-05-28] MEDS: CLOPIDOGREL BISULFATE 75 MG TABLET PO (08:48)
[2020-05-28] MEDS: CHOLECALCIFEROL 1,000 UNITS TABLET 1000 UNITS PO (08:48)
[2020-05-28] MEDS: busPIRone HCL 5 MG TABLET 15 MG PO (08:48)
[2020-05-28 08:49] VITALS: PULSE 75
[2020-05-28] MEDS: carvediloL 6.25 MG TABLET PO (08:49)
[2020-05-28] MEDS: LIDOCAINE 5% PATCH 3 PATCH TOPICAL (08:49)
[2020-05-28 12:00] VITALS: BP 100/49; PULSE 64; RESP 16; TEMP 36.3; O2SAT 99
--- NOTE | 2020-05-28 13:06 | PM.DS ---
DS: Admitting Diagnosis Admitting Diagnosis Admitting Diagnosis: COVID 19, lack of appetite DS: Discharge Diagnosis Discharge Diagnosis (1) COVID-19: Code(s): U07.1 - COVID-19 Status: Acute Assessment and Plan: The patient was at our acute rehab floor for therapy after hip surgery at [place]. She was doing well with therapy and going to be discharged to a skilled rehab facility when they tested her for COVID during placement and her results came back positive. The patient only reports some slight fatigue otherwise is asymptomatic with stable vital signs and labs. She was admitted to our hospitalist service in observation for COVID-19. Patient having some fatigue, weakness, slight dry cough, decreased appetite but otherwise is not having any shortness of breath or fevers and vital signs and labs are otherwise stable. She is stable at this time to be discharged to [facility] for further PT and OT therapy before returning home. (2) Femur fracture, right: Code(s): S72.91XA - Unspecified fracture of right femur, initial encounter for closed fracture Status: Acute Assessment and Plan: Continue PT/OT at [facility]. (3) Right humeral fracture: Code(s): S42.301A - Unspecified fracture of shaft of humerus, right arm, initial encounter for closed fracture Status: Chronic Assessment and Plan: Splint in place to right arm. Continue Ortho recommendations. She will be sent [facility] for further therapy. (4) Hypertension: Code(s): I10 - Essential (primary) hypertension Status: Chronic Assessment and Plan: Stable, Blood pressure 121/84. Monitor blood pressure. Continue coreg (5) Hyperlipidemia: Code(s): E78.5 - Hyperlipidemia, unspecified Status: Chronic Assessment and Plan: Continue simvastatin (6) Coronary artery disease: Code(s): I25.10 - Atherosclerotic heart disease of [place] coronary artery without angina pectoris Status: Chronic Assessment and Plan: No chest pain. Continue plavix and Coreg. (7) Anxiety: Code(s): F41.9 - Anxiety disorder, unspecified Status: Chronic Assessment and Plan: Continue buspirone. (8) Atrial fibrillation: Code(s): I48.91 - Unspecified atrial fibrillation Status: Chronic Assessment and Plan: Continue amiodarone. DS: Summary Hospital Course Hospital Course: Patient was a 79-year-old woman with a history of chronic hypertension, CAD, recent comminuted displaced periprosthetic intertrochanteric right femoral neck fracture at [place] and came to our [facility] for acute rehab. While she was here receiving therapy she had a COVID-19 test for placement at SNF and came back positive. She was then admitted on the hospital floor for further evaluation, monitoring, even though she was asymptomatic for any COVID symptoms other than slight weakness and decreased appetite. Initial vitals on transfer was afebrile, normal sinus rhythm with heart rate is 75 per, normal blood pressure 111/68, normal pulse ox with oxygen saturation 98% on room air. Initial labs showed normocytic anemia, leukopenia consistent with COVID, normal differential, hyponatremia at 131, otherwise normal renal function and electrolytes. During admission she did well and was transferred to [facility] for further PT and OT. Status at Discharge Cognitive/behavioral status at discharge: Stable, improved. Time Spent with Patient Time attestation: Total tanesha
--- NOTE | 2020-05-28 14:31 | PC.NURSE ---
Report called to [facility]. Spoke with Nurse Haydee.
--- NOTE | 2020-05-28 14:59 | PHAR ---
Home med verified: Prolia 60mg injection
== END 2020-05-28 16:20 | disposition swing bed (61) ==
PROVIDERS: Admitting Provider Family Medicine; PCP Family Medicine; Visit Provider Physician Assistant
DX: U07.1 COVID-19 (principal); S72.091D Other fracture of head and neck of right femur, subsequent encounter for closed fracture with routine healing; M97.01XD Periprosthetic fracture around internal prosthetic right hip joint, subsequent encounter; S42.301D Unspecified fracture of shaft of humerus, right arm, subsequent encounter for fracture with routine healing; I10 Essential (primary) hypertension; E78.5 Hyperlipidemia, unspecified; I25.10 Atherosclerotic heart disease of native coronary artery without angina pectoris; F41.9 Anxiety disorder, unspecified; I97.89 Other postprocedural complications and disorders of the circulatory system, not elsewhere classified; I48.91 Unspecified atrial fibrillation; R91.8 Other nonspecific abnormal finding of lung field; M54.16 Radiculopathy, lumbar region; R94.31 Abnormal electrocardiogram [ECG] [EKG]; R53.1 Weakness; R63.0 Anorexia; Z79.899 Other long term (current) drug therapy; Z91.81 History of falling
CPT/HCPCS: 36415; 71045; 80053; 83735; 85025; 93005; 96372; 97116; 97161; 97165; 97530; A9270; G0378; G0379; J1650

== ENCOUNTER 2020-05-28 16:53 | Inpatient (IN) | payer MEDICARE, OTHER, SELFPAY ==
--- NOTE | ~2020-05-28 | XR_ITS ---
EXAMINATION: XR humerus RT DATE: 06/02/2020 12:33 INDICATION: Right humerus fracture. TECHNIQUE: 2 views of right humerus were obtained. COMPARISON: Chest 2 view 05/27/2020 FINDINGS: There is a comminuted fracture of proximal right humerus. At the surgical neck, the distal fracture fragment demonstrates 3.0 cm shortening and 15 mm anterior displacement. Both views are of a similar orientation, and an orthogonal projection is not available. Callus formation is noted. There is mild osteoarthritis of glenohumeral joint and acromioclavicular joint. IMPRESSION: 1. Healing two-part fracture of proximal right humerus. 2. Polyarticular osteoarthritis. Reviewed, dictated and finalized at location A. DING INSULATION INSTALLER
[2020-05-28 17:25] VITALS: BP 130/78; PULSE 65; RESP 18; TEMP 36.4; O2SAT 97; BMI 22.9
--- NOTE | 2020-05-28 17:25 | ADMGEN ---
This patient[facility], was admitted to 2nd Floor Room 210-2. Patient/family oriented to hospital policies and general routines including ID bracelet, bed and alarms, visiting hours, pain management, procedures, bathroom and other care routines, personal items, smoking policy, room service/diet, and visiting hours. Information on how to activate the Rapid Response Team has been discussed. Patient/Family are encouraged to report perceived risks to care and to ask questions if they do not understand what they are told or what they should do.
--- NOTE | 2020-05-28 17:25 | PC.NURSE ---
Patient Asymptomatic for COVID. Patient was tested for placement in Rehab facility, but has never manifested symptoms.
[2020-05-28 19:43] VITALS: PULSE 78
[2020-05-28] MEDS: ACETAMINOPHEN 500 MG TABLET 1000 MG PO (19:43)
[2020-05-28] MEDS: carvediloL 6.25 MG TABLET PO (19:43)
[2020-05-28] MEDS: SENNA/DOCUSATE SODIUM TABLET 1 TAB PO (20:17)
[2020-05-28] MEDS: SIMVASTATIN 10 MG TABLET 40 MG PO (20:17)
--- NOTE | 2020-05-28 20:43 | PM.IMHP ---
H&P: HPI History of Present Illness Date/Time: 05/28/20 20:43 Chief Complaint: Weakness, here for rehab nurse [facility] facility with some right humeral and right femur fracture Narrative: Marine Sandoval is a 79 year old female with a past medical history of chronic hypertension, hyperlipidemia, coronary artery disease. The iqra faulkner presented to the hospital for rehab after she had multiple falls over the past month recent 1 resulting in a comminuted comminuted displaced intra trochanteric right femoral neck fracture and a previous right humeral fracture. Patient was treated at [facility] and was then transferred to [place] for acute rehab. The patient was going to be discharged to a [facility] facility but some prior to discharge tested positive for COVID and was subsequently transferred to our skilled facility. The patient has some weakness and fatigue otherwise asymptomatic with no COVID symptoms of cough or shortness of breath no nausea vomiting no abdominal pain no chest pain. Her right shoulder and right hip pain are well controlled and currently resting comfortably. Review of Systems Review of Systems: All systems reviewed & are unremarkable except as noted in HPI and below PMFSH Past Medical History Medical History Anxiety Atrial fibrillation Coronary artery disease Femur fracture, right ongoing pain Hyperlipidemia Hypertension Lumbar radiculopathy Right humeral fracture Surgical History Surgical History History of hip surgery Family History Family History Mother Acute myocardial infarction Father Acute myocardial infarction Sibling Diabetes mellitus Social History Social History Smoking status: Never smoker Second hand tobacco smoke exposure: No Alcohol intake: never Substance use: never Gender identity (if verbalized by the patient): Female Sexual Orientation (if Verbalized by the Patient): Straight or Heterosexual Spiritual care concerns: No Meds Home Medications and Allergies Home Medications Medication Instructions Recorded Confirmed Type Prolia 60 mg SUBCUT [id number] 05/12/20 05/28/20 History acetaminophen 1,000 mg PO TID PRN 05/12/20 05/28/20 History amiodarone 200 mg PO DAILY@0600 05/12/20 05/28/20 History buspirone 15 mg PO TID 05/12/20 05/28/20 History calcium acetate(phosphat bind) 667 mg PO DAILY 05/12/20 05/28/20 History carvedilol 6.25 mg PO Q12H 05/12/20 05/28/20 History cholecalciferol (vitamin D3) 25 mcg PO DAILY 05/12/20 05/28/20 History clopidogrel 75 mg PO DAILY 05/12/20 05/28/20 History cyclobenzaprine 5 mg PO TID PRN 05/12/20 05/28/20 History docusate sodium 100 mg PO DAILY 05/12/20 05/28/20 History duloxetine 60 mg PO DAILY@1700 05/12/20 05/28/20 History lidocaine [Lidoderm] 3 patch TOPICAL DAILY 05/12/20 05/28/20 History ondansetron 8 mg PO Q6H PRN 05/12/20 05/28/20 History polyethylene glycol 3350 17 g PO DAILY 05/12/20 05/28/20 History pravastatin 20 mg PO DAILY 05/12/20 05/28/20 History sennosides-docusate sodium 1 tab-cap PO HS 05/12/20 05/28/20 History simvastatin 40 mg PO HS 05/12/20 05/28/20 History tramadol 50 mg PO Q6H PRN 30 Days #60 05/26/20 05/28/20 Rx tablet MDD 4 enoxaparin [Lovenox] 40 mg SUBCUT DAILY #0 ml 05/28/20 05/28/20 Rx sodium chloride [Saline Mist] 1 spray INTRANASAL Q6HR PRN #30 ml 05/28/20 05/28/20 Rx Allergies Allergy/AdvReac Type Severity Reaction Status Date / Time meperidine Allergy Unknown Verified 05/12/20 17:10 propoxyphene Allergy Unknown Verified 05/12/20 17:11 hydrocodone AdvReac Confusion Verified 05/12/20 17:43 hydromorphone AdvReac Confusion Verified 05/12/20 17:43 ketorolac [From Toradol] AdvReac Confusion Verified 05/12/20 17:43 morphine AdvReac Nausea Verified
--- NOTE | 2020-05-28 22:00 | PC.NURSE ---
Patient to/from bedside commode with gait belt with one assist. Patient leery and doesn't really want to move, so needs much encouragement but did well. Dressings intact to right leg/hip area and sutures intact to knee. Denies pain @ this time. No distress noted. Right arm sling in place. Call light in reach.
[2020-05-29] VITALS: BP 109/65; PULSE 70; RESP 18; TEMP 36.7; O2SAT 95
[2020-05-29 00:53] VITALS: TEMP 36.9
--- NOTE | 2020-05-29 00:53 | PC.NURSE ---
Patient's temperature is now 98.5 and her right leg pain is @ 3 on 0-10 scale. Patient says she's been sleeping pretty good. Denies any other pain/complaints/needs @ this time. No distress noted. Call light in reach.
[2020-05-29] MEDS: ACETAMINOPHEN 500 MG TABLET 1000 MG PO ×2 (04:02→09:06)
[2020-05-29 05:38] VITALS: PULSE 68
[2020-05-29] MEDS: carvediloL 6.25 MG TABLET PO ×2 (05:38→17:20)
[2020-05-29] MEDS: AMIODARONE HCL 200 MG TABLET PO (05:38)
[2020-05-29 07:55] VITALS: BP 96/54; PULSE 69; RESP 18; TEMP 36.6; O2SAT 96
[2020-05-29] MEDS: ENOXAPARIN 40 MG/0.4 ML SYRINGE SUB-Q ×2 (09:05→21:03)
[2020-05-29] MEDS: PRAVASTATIN SODIUM 20 MG TABLET PO (09:06)
[2020-05-29] MEDS: busPIRone HCL 5 MG TABLET 15 MG PO ×3 (09:06→21:03)
[2020-05-29] MEDS: polyethylene glycoL 3350 17 GM POWD.PACK PO (09:06)
[2020-05-29] MEDS: CHOLECALCIFEROL 1,000 UNITS TABLET 1000 UNITS PO (09:06)
[2020-05-29] MEDS: CLOPIDOGREL BISULFATE 75 MG TABLET PO (09:06)
[2020-05-29] MEDS: DOCUSATE SODIUM 100 MG CAPSULE PO (09:06)
[2020-05-29] MEDS: LIDOCAINE 5% PATCH 3 PATCH TOPICAL (09:07)
[2020-05-29 10:09] LABS: Hemoglobin 10.6 g/dL (11.7-13.8); Mean Corpuscular HGB Conc 32.1 g/dL (32.0-36.0); Mean Corpuscular Hemoglobin 30.6 pg (27.0-31.0); Mean Corpuscular Volume 95.4 fL (78.0-102.0); Platelet Count Result 302 K/mm3 (150-420); Red Blood Count 3.46 M/mm3 (4.20-5.40); Red Cell Distribution Width 15.8 % (11.6-14.4); White Blood Count 4.2 K/mm3 (4.8-10.8)
[2020-05-29 10:19] LABS: Anion Gap 6 mmol/L (8-16); Blood Urea Nitrogen 13 mg/dL (7-18); Carbon Dioxide 27 mmol/L (21-32); Chloride 96 mmol/L (98-108); Estimated CRCL calculation 43 ml/min; Estimated Glomerular Filt Rate > 60; Glucose 144 mg/dL (70-99); Magnesium 1.8 mg/dL (1.8-2.4); Osmolality Calculated 271 mOsm/kg (285-295); Potassium 3.5 mmol/L (3.5-5.1); Sodium 129 mmol/L (136-145)
[2020-05-29] MEDS: ACETAMINOPHEN 500 MG TABLET PO ×2 (13:59→19:45)
[2020-05-29 16:30] VITALS: BP 128/83; PULSE 69; RESP 18; TEMP 36.8; O2SAT 97
[2020-05-29] MEDS: SODIUM CHLORIDE 1 GM TABLET PO (16:54)
[2020-05-29] MEDS: DULoxetine HCL 30 MG CAPSULE.DR 60 MG PO (16:54)
[2020-05-29 17:20] VITALS: PULSE 69
[2020-05-29] MEDS: SIMVASTATIN 10 MG TABLET 40 MG PO (21:03)
[2020-05-30] VITALS: BP 108/69; PULSE 72; RESP 18; TEMP 36.8; O2SAT 96
[2020-05-30] MEDS: ACETAMINOPHEN 500 MG TABLET PO ×3 (01:24→20:50)
[2020-05-30 06:00] VITALS: PULSE 76
[2020-05-30] MEDS: carvediloL 6.25 MG TABLET PO ×2 (06:00→17:24)
[2020-05-30 06:18] VITALS: PULSE 76
[2020-05-30] MEDS: AMIODARONE HCL 200 MG TABLET PO (06:18)
[2020-05-30 08:00] VITALS: BP 113/59; PULSE 66; RESP 18; TEMP 36.7; O2SAT 95
[2020-05-30] MEDS: LIDOCAINE 5% PATCH 3 PATCH TOPICAL (10:03)
[2020-05-30] MEDS: ENOXAPARIN 40 MG/0.4 ML SYRINGE SUB-Q ×2 (10:04→20:50)
[2020-05-30] MEDS: CYCLOBENZAPRINE HCL 5 MG TABLET PO ×2 (10:04→20:50)
[2020-05-30] MEDS: traMADol HCL (*CRX) 50 MG TABLET PO (10:04)
[2020-05-30] MEDS: CALCIUM ACETATE 667 MG TABLET PO (10:04)
[2020-05-30] MEDS: CLOPIDOGREL BISULFATE 75 MG TABLET PO (10:04)
[2020-05-30] MEDS: CHOLECALCIFEROL 1,000 UNITS TABLET 1000 UNITS PO (10:04)
[2020-05-30] MEDS: PRAVASTATIN SODIUM 20 MG TABLET PO (10:04)
[2020-05-30] MEDS: SODIUM CHLORIDE 1 GM TABLET PO ×2 (10:04→16:42)
[2020-05-30] MEDS: busPIRone HCL 5 MG TABLET 15 MG PO ×3 (10:07→20:51)
[2020-05-30 10:57] LABS: Add Urine Microscopic? YES; Appearance Urine Sl Cloudy (Clear); Bilirubin Urine Negative (Negative); Blood Urine Negative (Negative); Color Urine Yellow (Yellow); Glucose Urine UA Negative (Negative); Ketones Urine 3+ (Negative); Leukocyte Esterase Ur Negative LEU/UL (Negative); Nitrate Urine Positive (Negative); Protein Urine Negative (Negative)
[2020-05-30 11:02] LABS: RBC Urine 0-2 /hpf (0-2)
[2020-05-30 11:03] LABS: Bacteria Urine 4+ /hpf; Squamous Epithelial Cell Urine Few /hpf (Few)
--- NOTE | 2020-05-30 13:22 | PM.EVENT ---
Event Note Event Note Event Note: 05/30/2020 1322 hours: notified by nursing staff this morning patient was having urinary symptoms. Obtain a urinalysis which indicated positive for urinary tract infection. Started patient on Bactrim DS urine cultures pending.
--- NOTE | 2020-05-30 14:27 | PM.EVENT ---
Event Note Event Note Event Note: 05/30/2020 1428 hours: Removed 6 aba from 2 different sites at the right knee and 5 sutures from 2 different sites of the same knee, incision sites have healed very well, after talking out the above mentioned I used an Iodine swab on the site. Will remove the right hip aba tomorrow.
[2020-05-30 15:47] VITALS: BP 126/69; PULSE 66; RESP 18; TEMP 36.9; O2SAT 96
[2020-05-30] MEDS: DULoxetine HCL 30 MG CAPSULE.DR 60 MG PO (16:41)
[2020-05-30 17:24] VITALS: PULSE 68
--- NOTE | 2020-05-30 19:21 | PC.NURSE ---
up to commode and back to bed, hooked her ipad up to wifi and pt is on facetime call with daughter now, call light on lap
[2020-05-30] MEDS: SIMVASTATIN 10 MG TABLET 40 MG PO (20:51)
[2020-05-31] VITALS: BP 101/59; PULSE 70; RESP 20; TEMP 37.2; O2SAT 96
[2020-05-31] MEDS: ACETAMINOPHEN 500 MG TABLET PO ×2 (02:55→09:31)
--- NOTE | 2020-05-31 03:19 | PC.NURSE ---
Pt. up to commode c assist x1 and ambulates fairly well. Pt. c/o some pain returning to her knee and Rt. shoulder, pt. given Tylenol as per order and assisted to bed, turns self to side.
[2020-05-31 05:21] VITALS: PULSE 89
[2020-05-31] MEDS: carvediloL 6.25 MG TABLET PO ×2 (05:21→16:26)
[2020-05-31 05:22] VITALS: PULSE 89
[2020-05-31] MEDS: AMIODARONE HCL 200 MG TABLET PO (05:22)
[2020-05-31 06:41] LABS: Anion Gap 10 mmol/L (8-16); Blood Urea Nitrogen 6 mg/dL (7-18); Carbon Dioxide 25 mmol/L (21-32); Chloride 100 mmol/L (98-108); Estimated CRCL calculation 50 ml/min; Estimated Glomerular Filt Rate > 60; Glucose 83 mg/dL (70-99); Osmolality Calculated 276 mOsm/kg (285-295); Potassium 3.9 mmol/L (3.5-5.1); Sodium 135 mmol/L (136-145)
[2020-05-31 08:00] VITALS: BP 86/49; PULSE 73; RESP 20; TEMP 36.7; O2SAT 95
[2020-05-31] MEDS: LIDOCAINE 5% PATCH 3 PATCH TOPICAL (09:28)
[2020-05-31] MEDS: busPIRone HCL 5 MG TABLET 15 MG PO ×3 (09:29→21:07)
[2020-05-31] MEDS: PHENAZOPYRIDINE HCL 100 MG TABLET 200 MG PO ×3 (09:29→16:10)
[2020-05-31] MEDS: CHOLECALCIFEROL 1,000 UNITS TABLET 1000 UNITS PO (09:29)
[2020-05-31] MEDS: ENOXAPARIN 40 MG/0.4 ML SYRINGE SUB-Q ×2 (09:29→21:08)
[2020-05-31] MEDS: CLOPIDOGREL BISULFATE 75 MG TABLET PO (09:30)
[2020-05-31] MEDS: PRAVASTATIN SODIUM 20 MG TABLET PO (09:30)
[2020-05-31] MEDS: SODIUM CHLORIDE 1 GM TABLET PO ×2 (09:30→16:09)
[2020-05-31] MEDS: CYCLOBENZAPRINE HCL 5 MG TABLET PO (09:31)
[2020-05-31] MEDS: CALCIUM ACETATE 667 MG TABLET PO (09:33)
[2020-05-31 16:00] VITALS: BP 138/73; PULSE 18; RESP 18; TEMP 37.3; O2SAT 97
[2020-05-31] MEDS: DULoxetine HCL 30 MG CAPSULE.DR 60 MG PO (16:09)
[2020-05-31] MEDS: ACETAMINOPHEN/CODEINE (*CRX) 300/30 MG TABLET 1 TAB PO ×2 (16:09→22:29)
[2020-05-31 16:26] VITALS: PULSE 74
[2020-05-31] MEDS: SIMVASTATIN 10 MG TABLET 40 MG PO (21:08)
[2020-06-01] VITALS: BP 126/62; PULSE 73; RESP 18; TEMP 36.7; O2SAT 96
[2020-06-01] MEDS: ACETAMINOPHEN/CODEINE (*CRX) 300/30 MG TABLET 1 TAB PO ×3 (04:30→21:00)
[2020-06-01 05:59] VITALS: PULSE 66
[2020-06-01] MEDS: carvediloL 6.25 MG TABLET PO ×2 (05:59→17:11)
[2020-06-01] MEDS: AMIODARONE HCL 200 MG TABLET PO (05:59)
[2020-06-01 06:11] LABS: Hematocrit 33.2 % (35.0-42.0); Hemoglobin 10.5 g/dL (11.7-13.8); Mean Corpuscular HGB Conc 31.6 g/dL (32.0-36.0); Mean Corpuscular Volume 94.9 fL (78.0-102.0); Mean Platelet Volume 9.2 fl (9.2-11.8); Platelet Count Result 302 K/mm3 (150-420); Red Cell Distribution Width 15.6 % (11.6-14.4); White Blood Count 5.8 K/mm3 (4.8-10.8)
[2020-06-01 06:23] LABS: Anion Gap 10 mmol/L (8-16); Blood Urea Nitrogen 6 mg/dL (7-18); Carbon Dioxide 24 mmol/L (21-32); Chloride 101 mmol/L (98-108); Estimated CRCL calculation 50 ml/min; Estimated Glomerular Filt Rate > 60; Glucose 83 mg/dL (70-99); Magnesium 1.9 mg/dL (1.8-2.4); Osmolality Calculated 276 mOsm/kg (285-295); Potassium 3.8 mmol/L (3.5-5.1); Sodium 135 mmol/L (136-145)
[2020-06-01 07:55] VITALS: BP 98/58; PULSE 76; RESP 18; TEMP 36.8; O2SAT 100
[2020-06-01] MEDS: LIDOCAINE 5% PATCH 3 PATCH TOPICAL (08:50)
[2020-06-01] MEDS: CHOLECALCIFEROL 1,000 UNITS TABLET 1000 UNITS PO (08:52)
[2020-06-01] MEDS: CALCIUM ACETATE 667 MG TABLET PO (08:52)
[2020-06-01] MEDS: SODIUM CHLORIDE 1 GM TABLET PO ×2 (08:52→17:11)
[2020-06-01] MEDS: busPIRone HCL 5 MG TABLET 15 MG PO ×3 (08:52→20:42)
[2020-06-01] MEDS: CLOPIDOGREL BISULFATE 75 MG TABLET PO (08:52)
[2020-06-01] MEDS: PRAVASTATIN SODIUM 20 MG TABLET PO (08:52)
[2020-06-01] MEDS: PHENAZOPYRIDINE HCL 100 MG TABLET 200 MG PO ×3 (08:53→17:10)
[2020-06-01] MEDS: ENOXAPARIN 40 MG/0.4 ML SYRINGE SUB-Q ×2 (09:02→20:43)
--- NOTE | 2020-06-01 12:38 | PM.EVENT ---
Event Note Event Note Event Note: 06/01/2020 1238 hours Removed the remaining aba from the right hip at 3 locations with 6, 9, and 16 aba at each site, anterior, lateral, lateral at the hip respectively. All incision sites have healed well with no signs of infection. <William Arnold APN-C - Last Filed: 06/01/20 12:40>
[2020-06-01 15:35] VITALS: BP 94/51; PULSE 80; RESP 18; TEMP 36.5; O2SAT 95
[2020-06-01] MEDS: DULoxetine HCL 30 MG CAPSULE.DR 60 MG PO (17:10)
[2020-06-01 17:11] VITALS: PULSE 80
[2020-06-01] MEDS: SIMVASTATIN 10 MG TABLET 40 MG PO (20:43)
[2020-06-02] VITALS (7 sets, daily range): BP systolic 91–116; BP diastolic 49–67; PULSE 71–81; RESP 16–18; TEMP 36.6–37; O2SAT 92–96
--- NOTE | 2020-06-02 05:42 | PC.NURSE ---
Patient reports she has lost her sense of taste and that has contributed to her lack of appetite. She also reports feeling slightly nauseated too.
[2020-06-02] MEDS: AMIODARONE HCL 200 MG TABLET PO (06:02)
--- NOTE | 2020-06-02 06:10 | PC.NURSE ---
Doctor notified patient's BP 98/59. Coreg held and amiodarone given per doctor. Patient aware.
[2020-06-02] MEDS: PHENAZOPYRIDINE HCL 100 MG TABLET 200 MG PO ×3 (08:25→17:14)
[2020-06-02] MEDS: LIDOCAINE 5% PATCH 3 PATCH TOPICAL (08:25)
[2020-06-02] MEDS: CALCIUM ACETATE 667 MG TABLET PO (08:26)
[2020-06-02] MEDS: ENOXAPARIN 40 MG/0.4 ML SYRINGE SUB-Q (08:26)
[2020-06-02] MEDS: polyethylene glycoL 3350 17 GM POWD.PACK PO (08:26)
[2020-06-02] MEDS: ACETAMINOPHEN/CODEINE (*CRX) 300/30 MG TABLET 1 TAB PO (08:27)
[2020-06-02] MEDS: busPIRone HCL 5 MG TABLET 15 MG PO ×3 (08:27→21:16)
[2020-06-02] MEDS: CYCLOBENZAPRINE HCL 5 MG TABLET PO (08:27)
[2020-06-02] MEDS: CHOLECALCIFEROL 1,000 UNITS TABLET 1000 UNITS PO (08:27)
[2020-06-02] MEDS: SODIUM CHLORIDE 1 GM TABLET PO ×2 (08:27→17:13)
[2020-06-02] MEDS: PRAVASTATIN SODIUM 20 MG TABLET PO (08:28)
[2020-06-02] MEDS: CLOPIDOGREL BISULFATE 75 MG TABLET PO (08:28)
[2020-06-02] MEDS: MEGESTROL ACETATE (*CHEMO) 40 MG TABLET PO ×3 (13:20→21:17)
--- NOTE | 2020-06-02 15:35 | PM.EVENT ---
Event Note Event Note Event Note: Patient's vital signs and labs reviewed. Was informed by case coordination that patient appetite has decreased per family member Megace added to patient's regimen. He was also informed the patient takes stool softeners daily so I started schedule stool softeners and made her laxative as needed due to previous diarrhea.
[2020-06-02] MEDS: carvediloL 6.25 MG TABLET PO (17:13)
[2020-06-02] MEDS: DULoxetine HCL 30 MG CAPSULE.DR 60 MG PO (17:14)
[2020-06-02] MEDS: DOCUSATE SODIUM 100 MG CAPSULE PO (21:16)
[2020-06-02] MEDS: SIMVASTATIN 10 MG TABLET 40 MG PO (21:17)
--- NOTE | 2020-06-02 23:21 | PC.NURSE ---
Up to commode, incontinence noted, assisted with changing briefs, using nikkie walker effectively, no injury, stand by assist once up, did require moderate assist to get to sitting position, can get own legs in and out of bed, sling in place to right arm, healing incisions noted to right knee upper leg, no signs of infection noted
--- NOTE | 2020-06-03 01:00 | PC.NURSE ---
SBA up to commode some trouble with balance due to pain in right knee, no injury, back to bed, using call light appropriately
[2020-06-03 05:53] VITALS: PULSE 70
[2020-06-03] MEDS: AMIODARONE HCL 200 MG TABLET PO (05:53)
[2020-06-03] MEDS: carvediloL 6.25 MG TABLET PO ×2 (05:53→17:35)
--- NOTE | 2020-06-03 06:06 | PC.NURSE ---
blood pressure 106/63 pulse 70, am meds administered as ordered
[2020-06-03] MEDS: ONDANSETRON HCL ODT 4 MG TABLET 8 MG PO (07:53)
[2020-06-03 08:00] VITALS: BP 93/58; PULSE 80; RESP 18; TEMP 36.8; O2SAT 95
[2020-06-03] MEDS: LIDOCAINE 5% PATCH 3 PATCH TOPICAL (08:42)
[2020-06-03] MEDS: CALCIUM ACETATE 667 MG TABLET PO (08:46)
[2020-06-03] MEDS: MEGESTROL ACETATE (*CHEMO) 40 MG TABLET PO ×4 (08:47→20:38)
[2020-06-03] MEDS: PRAVASTATIN SODIUM 20 MG TABLET PO (08:47)
[2020-06-03] MEDS: busPIRone HCL 5 MG TABLET 15 MG PO ×3 (08:48→20:37)
[2020-06-03] MEDS: PHENAZOPYRIDINE HCL 100 MG TABLET 200 MG PO ×3 (08:48→17:04)
[2020-06-03] MEDS: CHOLECALCIFEROL 1,000 UNITS TABLET 1000 UNITS PO (08:48)
[2020-06-03] MEDS: CLOPIDOGREL BISULFATE 75 MG TABLET PO (08:48)
[2020-06-03] MEDS: SODIUM CHLORIDE 1 GM TABLET PO ×2 (08:48→17:07)
[2020-06-03] MEDS: ACETAMINOPHEN/CODEINE (*CRX) 300/30 MG TABLET 1 TAB PO ×2 (08:48→20:50)
[2020-06-03] MEDS: DOCUSATE SODIUM 100 MG CAPSULE PO ×2 (08:48→20:38)
[2020-06-03] MEDS: ENOXAPARIN 40 MG/0.4 ML SYRINGE SUB-Q ×2 (08:49→20:37)
[2020-06-03 15:59] VITALS: BP 125/68; PULSE 73; RESP 18; TEMP 36.9; O2SAT 93
[2020-06-03] MEDS: DULoxetine HCL 30 MG CAPSULE.DR 60 MG PO (17:06)
[2020-06-03 17:35] VITALS: PULSE 73
[2020-06-03] MEDS: SIMVASTATIN 10 MG TABLET 40 MG PO (20:38)
[2020-06-04 00:20] VITALS: BP 94/63; PULSE 74; RESP 18; TEMP 37.1; O2SAT 91
[2020-06-04] MEDS: AMIODARONE HCL 200 MG TABLET PO (05:18)
[2020-06-04] MEDS: carvediloL 6.25 MG TABLET PO ×2 (05:18→17:24)
[2020-06-04 08:00] VITALS: BP 115/64; PULSE 76; RESP 18; TEMP 36.7; O2SAT 93
[2020-06-04] MEDS: ENOXAPARIN 40 MG/0.4 ML SYRINGE SUB-Q ×2 (08:26→21:34)
[2020-06-04] MEDS: LIDOCAINE 5% PATCH 3 PATCH TOPICAL (08:26)
[2020-06-04] MEDS: ONDANSETRON HCL ODT 4 MG TABLET 8 MG PO (08:26)
[2020-06-04] MEDS: CALCIUM ACETATE 667 MG TABLET PO ×2 (08:27→17:20)
[2020-06-04] MEDS: CYCLOBENZAPRINE HCL 5 MG TABLET PO (08:27)
[2020-06-04] MEDS: PRAVASTATIN SODIUM 20 MG TABLET PO (08:27)
[2020-06-04] MEDS: DOCUSATE SODIUM 100 MG CAPSULE PO ×2 (08:27→21:34)
[2020-06-04] MEDS: SODIUM CHLORIDE 1 GM TABLET PO ×2 (08:27→17:20)
[2020-06-04] MEDS: busPIRone HCL 5 MG TABLET 15 MG PO ×3 (08:27→21:35)
[2020-06-04] MEDS: PHENAZOPYRIDINE HCL 100 MG TABLET 200 MG PO ×3 (08:27→17:20)
[2020-06-04] MEDS: CHOLECALCIFEROL 1,000 UNITS TABLET 1000 UNITS PO (08:28)
[2020-06-04] MEDS: MEGESTROL ACETATE (*CHEMO) 40 MG TABLET PO ×4 (08:28→21:35)
[2020-06-04] MEDS: CLOPIDOGREL BISULFATE 75 MG TABLET PO (08:28)
[2020-06-04] MEDS: ACETAMINOPHEN/CODEINE (*CRX) 300/30 MG TABLET 1 TAB PO (08:28)
[2020-06-04 15:30] VITALS: BP 108/66; PULSE 77; RESP 18; TEMP 36.8; O2SAT 94
[2020-06-04] MEDS: DULoxetine HCL 30 MG CAPSULE.DR 60 MG PO (17:20)
[2020-06-04 17:24] VITALS: PULSE 80
[2020-06-04] MEDS: SIMVASTATIN 10 MG TABLET 40 MG PO (21:34)
[2020-06-05] VITALS: BP 121/58; PULSE 71; RESP 18; TEMP 36.8; O2SAT 94
[2020-06-05 05:54] VITALS: PULSE 74
[2020-06-05] MEDS: carvediloL 6.25 MG TABLET PO (05:54)
[2020-06-05] MEDS: AMIODARONE HCL 200 MG TABLET PO (05:54)
[2020-06-05] MEDS: ACETAMINOPHEN/CODEINE (*CRX) 300/30 MG TABLET 1 TAB PO ×2 (07:07→17:01)
[2020-06-05 08:00] VITALS: BP 83/55; PULSE 77; RESP 18; TEMP 36.9; O2SAT 95
[2020-06-05] MEDS: LIDOCAINE 5% PATCH 3 PATCH TOPICAL (08:50)
[2020-06-05] MEDS: ENOXAPARIN 40 MG/0.4 ML SYRINGE SUB-Q ×2 (08:50→21:16)
[2020-06-05] MEDS: ONDANSETRON HCL ODT 4 MG TABLET 8 MG PO ×2 (08:51→17:02)
[2020-06-05] MEDS: PHENAZOPYRIDINE HCL 100 MG TABLET 200 MG PO ×3 (08:51→16:58)
[2020-06-05] MEDS: CHOLECALCIFEROL 1,000 UNITS TABLET 1000 UNITS PO (08:51)
[2020-06-05] MEDS: MEGESTROL ACETATE (*CHEMO) 40 MG TABLET PO ×4 (08:51→21:14)
[2020-06-05] MEDS: CYCLOBENZAPRINE HCL 5 MG TABLET PO (08:51)
[2020-06-05] MEDS: busPIRone HCL 5 MG TABLET 15 MG PO ×3 (08:52→21:14)
[2020-06-05] MEDS: PRAVASTATIN SODIUM 20 MG TABLET PO (08:52)
[2020-06-05] MEDS: SODIUM CHLORIDE 1 GM TABLET PO ×2 (08:52→17:02)
[2020-06-05] MEDS: DOCUSATE SODIUM 100 MG CAPSULE PO (08:52)
[2020-06-05] MEDS: CLOPIDOGREL BISULFATE 75 MG TABLET PO (08:52)
--- NOTE | 2020-06-05 12:26 | P.PN_ITS ---
Progress Note: A&P Assessment and Plan (1) COVID-19: Code(s): U07.1 - COVID-19 <Alexanderyissel SilAllison Collado OPEN TENTER OPERATOR-C - Last Filed: 06/05/20 13:16> Status: Acute <Alessia Collado OPEN TENTER OPERATOR-C - Last Filed: 06/05/20 13:16> Assessment and Plan: * Patient tested + 05/26/2020 * Patient off quarantine 06/06/2020 * Patient asymptomatic never received treatment for covid <Alexanderyissel SilAllison Collado OPEN TENTER OPERATOR-C - Last Filed: 06/05/20 13:16> (2) Right humeral fracture: Qualifiers: Encounter type: sequela Fracture morphology: unspecified fracture morphology Fracture type: closed Humerus Location: proximal Qualified Code(s): S42.201S - Unspecified fracture of upper end of right humerus, sequela <Alessia Collado OPEN TENTER OPERATOR-C - Last Filed: 06/05/20 13:16> Code(s): S42.301A - Unspecified fracture of shaft of humerus, right arm, initial encounter for closed fracture <Alexanderyissel SilAllison Collado OPEN TENTER OPERATOR-C - Last Filed: 06/05/20 13:16> Status: Chronic <Alessia Collado OPEN TENTER OPERATOR-C - Last Filed: 06/05/20 13:16> Assessment and Plan: * Patient to follow-up with Ortho after discharge * Nonweightbearing with sling in place during the day elevated on a pillow at night <RICCI MichelleP-C - Last Filed: 06/05/20 13:16> (3) Femur fracture, right: Qualifiers: Encounter type: sequela Femur location: unspecified portion of femur Fracture morphology: unspecified fracture morphology Fracture type: closed Qualified Code(s): S72.91XS - Unspecified fracture of right femur, sequela <Alessia Collado OPEN TENTER OPERATOR-C - Last Filed: 06/05/20 13:16> Code(s): S72.91XA - Unspecified fracture of right femur, initial encounter for closed fracture <Alessia Collado OPEN TENTER OPERATOR-C - Last Filed: 06/05/20 13:16> Status: Acute <Alessia Collado OPEN TENTER OPERATOR-C - Last Filed: 06/05/20 13:16> Assessment and Plan: * [place] removed on 05/30/2020 * Continue physical therapy/Occupational Therapy <Alessia MujicaDENISE Reynaga - Last Filed: 06/05/20 13:16> (4) Hypertension: Qualifiers: Hypertension type: essential hypertension Qualified Code(s): I10 - Essential (primary) hypertension <Alessia SilDENISE Reynaga - Last Filed: 06/05/20 13:16> Code(s): I10 - Essential (primary) hypertension <Alessia MujicaDENISE Reynaga - Last Filed: 06/05/20 13:16> Status: Chronic <Alexanderyissel Guzman DENISE Collado - Last Filed: 06/05/20 13:16> Assessment and Plan: * Blood pressure soft 83/55 * Change patient's Coreg from 6.25 twice daily to 3.125 twice daily * Vital signs as ordered * Will adjust medication as needed <DENISE Michelle - Last Filed: 06/05/20 13:16> (5) Hyperlipidemia: Qualifiers: Hyperlipidemia type: mixed hyperlipidemia Qualified Code(s): E78.2 - Mixed hyperlipidemia <Alessia SilDENISE Reynaga - Last Filed: 06/05/20 13:16> Code(s): E78.5 - Hyperlipidemia, unspecified <Alessia SilDENISE Reynaga - Last Filed: 06/05/20 13:16> Status: Chronic <DENISE Michelle - Last Filed: 06/05/20 13:16> Assessment and Plan: * Continue statins <Alexanderyissel SilDENISE Reynaga - Last Filed: 06/05/20 13:16> (6) Anxiety: Code(s): F41.9 - Anxiety disorder, unspecified <DENISE Michelle - Last Filed: 06/05/20 13:16> Status: Chronic <Alessia SilDENISE Reynaga - Last Filed: 06/05/20 13:16> Assessment and Plan: * Continue Wellbutrin <DENISE Michelle - Last Filed: 06/05/20 13:16> (7) Coronary artery disease: Qualifiers: Associated angina: without angin
--- NOTE | 2020-06-05 12:26 | WPDPN ---
Progress Note: A&P Assessment and Plan (1) COVID-19: Code(s): U07.1 - COVID-19 <Alexanderyissel SilAllison Collado BRINE TANK SEPARATOR OPERATOR-C - Last Filed: 06/05/20 13:16> Status: Acute <Alessia Collado BRINE TANK SEPARATOR OPERATOR-C - Last Filed: 06/05/20 13:16> Assessment and Plan: Patient tested + 05/26/2020 Patient off quarantine 06/06/2020 Patient asymptomatic never received treatment for covid <Alexanderyissel SilAllison Collado BRINE TANK SEPARATOR OPERATOR-C - Last Filed: 06/05/20 13:16> (2) Right humeral fracture: Qualifiers: Encounter type: sequela Fracture morphology: unspecified fracture morphology Fracture type: closed Humerus Location: proximal Qualified Code(s): S42.201S - Unspecified fracture of upper end of right humerus, sequela <Alessia Collado BRINE TANK SEPARATOR OPERATOR-C - Last Filed: 06/05/20 13:16> Code(s): S42.301A - Unspecified fracture of shaft of humerus, right arm, initial encounter for closed fracture <Alexanderyissel SilAllison Collado BRINE TANK SEPARATOR OPERATOR-C - Last Filed: 06/05/20 13:16> Status: Chronic <Alessia Collado BRINE TANK SEPARATOR OPERATOR-C - Last Filed: 06/05/20 13:16> Assessment and Plan: Patient to follow-up with Ortho after discharge Nonweightbearing with sling in place during the day elevated on a pillow at night <RICCI MichelleP-C - Last Filed: 06/05/20 13:16> (3) Femur fracture, right: Qualifiers: Encounter type: sequela Femur location: unspecified portion of femur Fracture morphology: unspecified fracture morphology Fracture type: closed Qualified Code(s): S72.91XS - Unspecified fracture of right femur, sequela <Alessia Collado BRINE TANK SEPARATOR OPERATOR-C - Last Filed: 06/05/20 13:16> Code(s): S72.91XA - Unspecified fracture of right femur, initial encounter for closed fracture <Alessia Collado BRINE TANK SEPARATOR OPERATOR-C - Last Filed: 06/05/20 13:16> Status: Acute <Alessia Collado BRINE TANK SEPARATOR OPERATOR-C - Last Filed: 06/05/20 13:16> Assessment and Plan: [place] removed on 05/30/2020 Continue physical therapy/Occupational Therapy <Alexanderyissel SilDENISE Reynaga - Last Filed: 06/05/20 13:16> (4) Hypertension: Qualifiers: Hypertension type: essential hypertension Qualified Code(s): I10 - Essential (primary) hypertension <Alexanderyissel SilDENISE Reynaga - Last Filed: 06/05/20 13:16> Code(s): I10 - Essential (primary) hypertension <Alessia Hinds DENISE Collado - Last Filed: 06/05/20 13:16> Status: Chronic <Alexanderyissel Guzman DENISE Collado - Last Filed: 06/05/20 13:16> Assessment and Plan: Blood pressure soft 83/55 Change patient's Coreg from 6.25 twice daily to 3.125 twice daily Vital signs as ordered Will adjust medication as needed <DENISE Michelle - Last Filed: 06/05/20 13:16> (5) Hyperlipidemia: Qualifiers: Hyperlipidemia type: mixed hyperlipidemia Qualified Code(s): E78.2 - Mixed hyperlipidemia <Alessia MujicaDENISE Reynaga - Last Filed: 06/05/20 13:16> Code(s): E78.5 - Hyperlipidemia, unspecified <Alexanderyissel SilDENISE Reynaga - Last Filed: 06/05/20 13:16> Status: Chronic <Alexanderyissel SilDENISE Reynaga - Last Filed: 06/05/20 13:16> Assessment and Plan: Continue statins <AlexanderDENISE Javier - Last Filed: 06/05/20 13:16> (6) Anxiety: Code(s): F41.9 - Anxiety disorder, unspecified <DENISE Michelle - Last Filed: 06/05/20 13:16> Status: Chronic <Alexanderyissel SilDENISE Reynaga - Last Filed: 06/05/20 13:16> Assessment and Plan: Continue Wellbutrin <Alexanderyissel SilDENISE Reynaga - Last Filed: 06/05/20 13:16> (7) Coronary artery disease: Qualifiers: Associated angina: without angina Coronary Disease-Associated Artery/Lesion type: [place] artery [place] vs. transplanted heart: [place] heart Qualified Code(s): I25.10 - Atherosclerotic heart disease of [place] coronary artery without angina pectoris <ANAMIKA Michelle-Britany - Last Filed: 06/05/20 13:16> Code(s): I25.10 - Atherosclerotic heart disease of n
[2020-06-05 16:00] VITALS: BP 139/66; PULSE 79; RESP 18; TEMP 36.6; O2SAT 94
[2020-06-05] MEDS: DULoxetine HCL 30 MG CAPSULE.DR 60 MG PO (17:01)
[2020-06-05 21:15] VITALS: PULSE 70
[2020-06-05] MEDS: SIMVASTATIN 10 MG TABLET 40 MG PO (21:15)
[2020-06-05] MEDS: carvediloL 3.125 MG TABLET PO (21:15)
[2020-06-05] MEDS: SENNA/DOCUSATE SODIUM TABLET 1 TAB PO (21:17)
[2020-06-06] VITALS: BP 121/65; PULSE 74; RESP 18; TEMP 36.7; O2SAT 92
[2020-06-06 05:46] VITALS: PULSE 74
[2020-06-06] MEDS: AMIODARONE HCL 200 MG TABLET PO (05:46)
[2020-06-06] MEDS: ACETAMINOPHEN/CODEINE (*CRX) 300/30 MG TABLET 1 TAB PO (05:47)
[2020-06-06 07:55] VITALS: BP 107/68; PULSE 76; RESP 18; TEMP 37; O2SAT 95
[2020-06-06] MEDS: LIDOCAINE 5% PATCH 3 PATCH TOPICAL (09:30)
[2020-06-06 09:31] VITALS: PULSE 76
[2020-06-06] MEDS: DOCUSATE SODIUM 100 MG CAPSULE PO (09:31)
[2020-06-06] MEDS: ENOXAPARIN 40 MG/0.4 ML SYRINGE SUB-Q ×2 (09:31→20:37)
[2020-06-06] MEDS: PRAVASTATIN SODIUM 20 MG TABLET PO (09:31)
[2020-06-06] MEDS: SODIUM CHLORIDE 1 GM TABLET PO ×2 (09:31→16:22)
[2020-06-06] MEDS: busPIRone HCL 5 MG TABLET 15 MG PO ×3 (09:31→20:36)
[2020-06-06] MEDS: carvediloL 3.125 MG TABLET PO ×2 (09:31→20:36)
[2020-06-06] MEDS: CHOLECALCIFEROL 1,000 UNITS TABLET 1000 UNITS PO (09:31)
[2020-06-06] MEDS: CALCIUM ACETATE 667 MG TABLET PO (09:32)
[2020-06-06] MEDS: PHENAZOPYRIDINE HCL 100 MG TABLET 200 MG PO ×3 (09:32→16:21)
[2020-06-06] MEDS: MEGESTROL ACETATE (*CHEMO) 40 MG TABLET PO ×4 (09:32→20:36)
[2020-06-06] MEDS: CLOPIDOGREL BISULFATE 75 MG TABLET PO (09:32)
[2020-06-06 16:18] VITALS: BP 122/79; PULSE 73; RESP 18; TEMP 36.4; O2SAT 96
[2020-06-06] MEDS: DULoxetine HCL 30 MG CAPSULE.DR 60 MG PO (16:22)
[2020-06-06] MEDS: SIMVASTATIN 10 MG TABLET 40 MG PO (20:37)
[2020-06-06] MEDS: SENNA/DOCUSATE SODIUM TABLET 1 TAB PO (20:37)
[2020-06-07] VITALS (7 sets, daily range): BP systolic 109–125; BP diastolic 69–87; PULSE 74–85; RESP 16–18; TEMP 36.8–37.4; O2SAT 92–98
[2020-06-07] MEDS: AMIODARONE HCL 200 MG TABLET PO (05:20)
[2020-06-07] MEDS: ACETAMINOPHEN/CODEINE (*CRX) 300/30 MG TABLET 1 TAB PO ×2 (07:32→23:16)
[2020-06-07] MEDS: PHENAZOPYRIDINE HCL 100 MG TABLET 200 MG PO ×3 (09:23→17:09)
[2020-06-07] MEDS: CALCIUM ACETATE 667 MG TABLET PO (09:23)
[2020-06-07] MEDS: LIDOCAINE 5% PATCH 3 PATCH TOPICAL (09:23)
[2020-06-07] MEDS: ENOXAPARIN 40 MG/0.4 ML SYRINGE SUB-Q ×2 (09:23→21:23)
[2020-06-07] MEDS: busPIRone HCL 5 MG TABLET 15 MG PO ×3 (09:24→21:25)
[2020-06-07] MEDS: CLOPIDOGREL BISULFATE 75 MG TABLET PO (09:24)
[2020-06-07] MEDS: MEGESTROL ACETATE (*CHEMO) 40 MG TABLET PO ×4 (09:24→21:24)
[2020-06-07] MEDS: SODIUM CHLORIDE 1 GM TABLET PO ×2 (09:24→17:09)
[2020-06-07] MEDS: carvediloL 3.125 MG TABLET PO ×2 (09:24→21:24)
[2020-06-07] MEDS: PRAVASTATIN SODIUM 20 MG TABLET PO (09:25)
[2020-06-07] MEDS: CHOLECALCIFEROL 1,000 UNITS TABLET 1000 UNITS PO (09:25)
[2020-06-07] MEDS: DOCUSATE SODIUM 100 MG CAPSULE PO (09:25)
[2020-06-07] MEDS: polyethylene glycoL 3350 17 GM POWD.PACK PO (12:41)
[2020-06-07] MEDS: DULoxetine HCL 30 MG CAPSULE.DR 60 MG PO (17:09)
[2020-06-07] MEDS: SIMVASTATIN 10 MG TABLET 40 MG PO (21:24)
[2020-06-07] MEDS: SENNA/DOCUSATE SODIUM TABLET 1 TAB PO (21:25)
--- NOTE | 2020-06-08 02:40 | PC.NURSE ---
pt sleeping, no evidence of distress noted, belongings and call light within reach
[2020-06-08 05:54] VITALS: PULSE 80
[2020-06-08] MEDS: AMIODARONE HCL 200 MG TABLET PO (05:54)
[2020-06-08] MEDS: ACETAMINOPHEN/CODEINE (*CRX) 300/30 MG TABLET 1 TAB PO ×2 (05:58→17:56)
[2020-06-08 08:00] VITALS: BP 88/63; PULSE 84; RESP 18; TEMP 37.1; O2SAT 93
[2020-06-08] MEDS: LIDOCAINE 5% PATCH 3 PATCH TOPICAL (08:58)
[2020-06-08] MEDS: SODIUM CHLORIDE 1 GM TABLET PO ×2 (08:59→17:56)
[2020-06-08] MEDS: ENOXAPARIN 40 MG/0.4 ML SYRINGE SUB-Q ×2 (08:59→20:50)
[2020-06-08] MEDS: CHOLECALCIFEROL 1,000 UNITS TABLET 1000 UNITS PO (08:59)
[2020-06-08] MEDS: polyethylene glycoL 3350 17 GM POWD.PACK PO (08:59)
[2020-06-08] MEDS: CALCIUM ACETATE 667 MG TABLET PO (08:59)
[2020-06-08 09:00] VITALS: PULSE 84
[2020-06-08] MEDS: busPIRone HCL 5 MG TABLET 15 MG PO ×3 (09:00→20:51)
[2020-06-08] MEDS: CLOPIDOGREL BISULFATE 75 MG TABLET PO (09:00)
[2020-06-08] MEDS: CYCLOBENZAPRINE HCL 5 MG TABLET PO (09:00)
[2020-06-08] MEDS: MEGESTROL ACETATE (*CHEMO) 40 MG TABLET PO ×4 (09:00→20:51)
[2020-06-08] MEDS: PRAVASTATIN SODIUM 20 MG TABLET PO (09:00)
[2020-06-08] MEDS: DOCUSATE SODIUM 100 MG CAPSULE PO (09:00)
[2020-06-08] MEDS: PHENAZOPYRIDINE HCL 100 MG TABLET 200 MG PO (09:01)
--- NOTE | 2020-06-08 13:43 | PM.EVENT ---
Event Note Event Note Event Note: Patient vital signs reviewed blood pressure soft recently adjusted blood pressure medication. We will continue to monitor blood pressure and adjust medication if needed. Also ordered repeat labs for 06/09/2020.
[2020-06-08 16:00] VITALS: BP 108/85; BP 125/65; PULSE 67; PULSE 84; RESP 18; TEMP 36.7; TEMP 37.1; O2SAT 96; O2SAT 98
[2020-06-08] MEDS: DULoxetine HCL 30 MG CAPSULE.DR 60 MG PO (17:56)
[2020-06-08] MEDS: SIMVASTATIN 10 MG TABLET 40 MG PO (20:50)
[2020-06-08 20:51] VITALS: PULSE 70
[2020-06-08] MEDS: carvediloL 3.125 MG TABLET PO (20:51)
[2020-06-08] MEDS: SENNA/DOCUSATE SODIUM TABLET 1 TAB PO (20:52)
[2020-06-08 23:25] VITALS: BP 114/75; PULSE 68; RESP 20; TEMP 36.7; O2SAT 96
--- NOTE | 2020-06-09 01:10 | PC.NURSE ---
Pt. assisted c SBA to [facility]. Pt. reports feeling well and has no c/o at this time. VSS.
[2020-06-09] MEDS: ACETAMINOPHEN/CODEINE (*CRX) 300/30 MG TABLET 1 TAB PO (04:33)
[2020-06-09 05:57] LABS: Hematocrit 28.9 % (35.0-42.0); Mean Corpuscular HGB Conc 31.1 g/dL (32.0-36.0); Mean Corpuscular Hemoglobin 30.1 pg (27.0-31.0); Mean Corpuscular Volume 96.7 fL (78.0-102.0); Mean Platelet Volume 8.8 fl (9.2-11.8); Platelet Count Result 437 K/mm3 (150-420); Red Blood Count 2.99 M/mm3 (4.20-5.40); Red Cell Distribution Width 15.9 % (11.6-14.4); White Blood Count 6.3 K/mm3 (4.8-10.8)
[2020-06-09 05:58] VITALS: PULSE 78
[2020-06-09] MEDS: AMIODARONE HCL 200 MG TABLET PO (05:58)
[2020-06-09 06:13] LABS: Alanine Aminotransferase 13 U/L (14-59); Albumin Level 2.9 g/dL (3.4-5.0); Alkaline Phosphatase 95 U/L (46-116); Anion Gap 9 mmol/L (8-16); Aspartate Amino Transferase 16 U/L (15-37); Bilirubin,Total 0.9 mg/dL (0.00-1.00); Blood Urea Nitrogen 14 mg/dL (7-18); Calcium 7.9 mg/dL (8.5-10.1); Carbon Dioxide 26 mmol/L (21-32); Chloride 106 mmol/L (98-108); Estimated CRCL calculation 30 ml/min; Estimated Glomerular Filt Rate 49; Glucose 82 mg/dL (70-99); Osmolality Calculated 291 mOsm/kg (285-295); Potassium 4.2 mmol/L (3.5-5.1); Sodium 141 mmol/L (136-145)
[2020-06-09 06:21] LABS: Band Neutrophils Percent 0 % (0-6); Basophils Absolute Manual 0.06 K/mm3 (0-0.1); Basophils Percent Manual 1 % (0-1); Eosinophils Absolute Manual 0.06 K/mm3 (0.02-0.5); Eosinophils Percent Manual 1 % (1-6); Lymphocytes Percent Manual 35 % (18-44); Monocytes Absolute Manual 1.19 K/mm3 (0.1-0.90); Monocytes Percent Manual 19 % (3-9); Neutrophils Absolute Manual 2.77 K/mm3 (1.7-7.2); Neutrophils Percent Manual 44 % (46-73); Total Cells Counted 100
[2020-06-09 08:00] VITALS: BP 108/70; PULSE 76; RESP 18; TEMP 37.1; O2SAT 92
[2020-06-09] MEDS: ENOXAPARIN 40 MG/0.4 ML SYRINGE SUB-Q ×2 (08:43→21:03)
[2020-06-09] MEDS: CALCIUM ACETATE 667 MG TABLET PO (08:44)
[2020-06-09] MEDS: CHOLECALCIFEROL 1,000 UNITS TABLET 1000 UNITS PO (08:44)
[2020-06-09] MEDS: CLOPIDOGREL BISULFATE 75 MG TABLET PO (08:44)
[2020-06-09] MEDS: PRAVASTATIN SODIUM 20 MG TABLET PO (08:44)
[2020-06-09] MEDS: busPIRone HCL 5 MG TABLET 15 MG PO ×3 (08:44→21:05)
[2020-06-09 08:45] VITALS: PULSE 76
[2020-06-09] MEDS: SODIUM CHLORIDE 1 GM TABLET PO ×2 (08:45→17:04)
[2020-06-09] MEDS: MEGESTROL ACETATE (*CHEMO) 40 MG TABLET PO ×4 (08:45→21:07)
[2020-06-09] MEDS: DOCUSATE SODIUM 100 MG CAPSULE PO (08:45)
[2020-06-09] MEDS: carvediloL 3.125 MG TABLET PO ×2 (08:45→21:06)
[2020-06-09] MEDS: LIDOCAINE 5% PATCH 3 PATCH TOPICAL (08:48)
[2020-06-09 16:00] VITALS: BP 106/63; PULSE 79; RESP 18; TEMP 37; O2SAT 95
[2020-06-09] MEDS: ACETAMINOPHEN 500 MG TABLET PO (17:03)
[2020-06-09] MEDS: DULoxetine HCL 30 MG CAPSULE.DR 60 MG PO (17:04)
--- NOTE | 2020-06-09 20:23 | PC.NURSE ---
Pt. called for SBA to [facility] c use of her nikkie walker. Pt. tolerates movement well and needs little assistance when up walking. Pt. back to bed and call kelli in reach.
[2020-06-09 21:06] VITALS: PULSE 78
[2020-06-09] MEDS: SENNA/DOCUSATE SODIUM TABLET 1 TAB PO (21:06)
[2020-06-09] MEDS: SIMVASTATIN 10 MG TABLET 40 MG PO (21:08)
[2020-06-09 23:56] VITALS: BP 94/60; PULSE 71; RESP 20; TEMP 37.2; O2SAT 95
[2020-06-10] MEDS: ACETAMINOPHEN/CODEINE (*CRX) 300/30 MG TABLET 1 TAB PO (04:33)
[2020-06-10 05:59] VITALS: PULSE 76
[2020-06-10] MEDS: AMIODARONE HCL 200 MG TABLET PO (05:59)
[2020-06-10 08:00] VITALS: BP 110/70; PULSE 76; RESP 20; TEMP 36.1; O2SAT 96
[2020-06-10] MEDS: DOCUSATE SODIUM 100 MG CAPSULE PO (08:44)
[2020-06-10] MEDS: busPIRone HCL 5 MG TABLET 15 MG PO (08:44)
[2020-06-10] MEDS: ENOXAPARIN 40 MG/0.4 ML SYRINGE SUB-Q (08:44)
[2020-06-10] MEDS: SODIUM CHLORIDE 1 GM TABLET PO (08:44)
[2020-06-10] MEDS: CHOLECALCIFEROL 1,000 UNITS TABLET 1000 UNITS PO (08:44)
[2020-06-10 08:45] VITALS: PULSE 76
[2020-06-10] MEDS: PRAVASTATIN SODIUM 20 MG TABLET PO (08:45)
[2020-06-10] MEDS: CLOPIDOGREL BISULFATE 75 MG TABLET PO (08:45)
[2020-06-10] MEDS: CALCIUM ACETATE 667 MG TABLET PO (08:45)
[2020-06-10] MEDS: LIDOCAINE 5% PATCH 3 PATCH TOPICAL (08:45)
[2020-06-10] MEDS: MEGESTROL ACETATE (*CHEMO) 40 MG TABLET PO (08:45)
[2020-06-10] MEDS: carvediloL 3.125 MG TABLET PO (08:45)
--- NOTE | 2020-06-10 11:06 | P.DS_ITS ---
DS: Admitting Diagnosis Admitting Diagnosis Admitting Diagnosis: COVID, Generalized weakness. <William ZunigaAllison Arnold APN-C - Last Filed: 06/10/20 11:24> DS: Discharge Diagnosis Discharge Diagnosis (1) COVID-19: Code(s): U07.1 - COVID-19 <William NadiaAllison Arnold APN-C - Last Filed: 06/10/20 11:24> Status: Acute <William ZunigaAllison Arnold APN-C - Last Filed: 06/10/20 11:24> Assessment and Plan: * Patient tested + 05/26/2020 * Patient off quarantine 06/06/2020 * Patient asymptomatic never received treatment for covid * Pt having no difficulty with breathing, continues on room air <William ZunigaAllison Arnold APN-C - Last Filed: 06/10/20 11:24> (2) Right humeral fracture: Qualifiers: Encounter type: sequela Fracture morphology: unspecified fracture morphology Fracture type: closed Humerus Location: proximal Qualified Code(s): S42.201S - Unspecified fracture of upper end of right humerus, sequela <William NadiaJOSE RiveroN-C - Last Filed: 06/10/20 11:24> Code(s): S42.301A - Unspecified fracture of shaft of humerus, right arm, initial encounter for closed fracture <William NadiaJOSE RiveroN-C - Last Filed: 06/10/20 11:24> Status: Chronic <William NadiaAllison Arnold APN-C - Last Filed: 06/10/20 11:24> Assessment and Plan: * Patient to follow-up with Ortho after discharge * Nonweightbearing with sling in place during the day elevated on a pillow at night * DC to [place] to further PT/OT <William NadiaAllison Arnold APN-C - Last Filed: 06/10/20 11:24> (3) Femur fracture, right: Qualifiers: Encounter type: sequela Femur location: unspecified portion of femur Fracture morphology: unspecified fracture morphology Fracture type: closed Qualified Code(s): S72.91XS - Unspecified fracture of right femur, sequela <William NadiaJOSE RiveroN-C - Last Filed: 06/10/20 11:24> Code(s): S72.91XA - Unspecified fracture of right femur, initial encounter for closed fracture <William ArnoldBABAR-C - Last Filed: 06/10/20 11:24> Status: Acute <William ArnoldBABAR-C - Last Filed: 06/10/20 11:24> Assessment and Plan: * [place] removed on 05/30/2020 * DC to [place] to further PT/OT <William ArnoldBABAR-C - Last Filed: 06/10/20 11:24> (4) Hypertension: Qualifiers: Hypertension type: essential hypertension Qualified Code(s): I10 - Essential (primary) hypertension <William ArnoldBABAR-C - Last Filed: 06/10/20 11:24> Code(s): I10 - Essential (primary) hypertension <William ArnoldBABAR-C - Last Filed: 06/10/20 11:24> Status: Chronic <William ArnoldBABAR-C - Last Filed: 06/10/20 11:24> Assessment and Plan: VS have been stable, DC with Changed medications and dosages. <William ArnoldBABAR-C - Last Filed: 06/10/20 11:24> (5) Hyperlipidemia: Qualifiers: Hyperlipidemia type: mixed hyperlipidemia Qualified Code(s): E78.2 - Mixed hyperlipidemia <William ArnoldBABAR-C - Last Filed: 06/10/20 11:24> Code(s): E78.5 - Hyperlipidemia, unspecified <William ArnoldBABAR-C - Last Filed: 06/10/20 11:24> Status: Chronic <William ArnoldBABAR-C - Last Filed: 06/10/20 11:24> Assessment and Plan: * Continue statins <William OconnorBABAR atkinson-C - Last Filed: 06/10/20 11:24> (6) Anxiety: Code(s): F41.9 - Anxiety disorder, unspecified <William OconnorBABAR atkinson-C - Last Filed: 06/10/20 11:24> Status: Chronic <William ArnoldBABAR-C - Last Filed: 06/10/20 11:24> Assessment and Plan: * Continue Wellbutrin <William
--- NOTE | 2020-06-10 11:06 | PM.DS ---
DS: Admitting Diagnosis Admitting Diagnosis Admitting Diagnosis: COVID, Generalized weakness. <William NadiaAllison Arnold APN-C - Last Filed: 06/10/20 11:24> DS: Discharge Diagnosis Discharge Diagnosis (1) COVID-19: Code(s): U07.1 - COVID-19 <William NadiaCLAIRE RiveroC - Last Filed: 06/10/20 11:24> Status: Acute <William NadiaCLAIRE RiveroC - Last Filed: 06/10/20 11:24> Assessment and Plan: Patient tested + 05/26/2020 Patient off quarantine 06/06/2020 Patient asymptomatic never received treatment for covid Pt having no difficulty with breathing, continues on room air <William NadiaCLAIRE RiveroC - Last Filed: 06/10/20 11:24> (2) Right humeral fracture: Qualifiers: Encounter type: sequela Fracture morphology: unspecified fracture morphology Fracture type: closed Humerus Location: proximal Qualified Code(s): S42.201S - Unspecified fracture of upper end of right humerus, sequela <William NadiaAllison Arnold APN-C - Last Filed: 06/10/20 11:24> Code(s): S42.301A - Unspecified fracture of shaft of humerus, right arm, initial encounter for closed fracture <William NadiaAllison Arnold APN-C - Last Filed: 06/10/20 11:24> Status: Chronic <William NadiaAllison Arnold APN-C - Last Filed: 06/10/20 11:24> Assessment and Plan: Patient to follow-up with Ortho after discharge Nonweightbearing with sling in place during the day elevated on a pillow at night PR to [place] to further PT/OT <William Arnold APN-C - Last Filed: 06/10/20 11:24> (3) Femur fracture, right: Qualifiers: Encounter type: sequela Femur location: unspecified portion of femur Fracture morphology: unspecified fracture morphology Fracture type: closed Qualified Code(s): S72.91XS - Unspecified fracture of right femur, sequela <William Arnold APN-C - Last Filed: 06/10/20 11:24> Code(s): S72.91XA - Unspecified fracture of right femur, initial encounter for closed fracture <William ArnoldBABAR-C - Last Filed: 06/10/20 11:24> Status: Acute <William Arnold DRIVER SALES-C - Last Filed: 06/10/20 11:24> Assessment and Plan: [place] removed on 05/30/2020 DC to [place] to further PT/OT <William ArnoldBABAR-C - Last Filed: 06/10/20 11:24> (4) Hypertension: Qualifiers: Hypertension type: essential hypertension Qualified Code(s): I10 - Essential (primary) hypertension <William ArnoldBABAR-C - Last Filed: 06/10/20 11:24> Code(s): I10 - Essential (primary) hypertension <William ArnoldBABAR-C - Last Filed: 06/10/20 11:24> Status: Chronic <William ArnoldBABAR-C - Last Filed: 06/10/20 11:24> Assessment and Plan: VS have been stable, DC with Changed medications and dosages. <William ArnoldBABAR-C - Last Filed: 06/10/20 11:24> (5) Hyperlipidemia: Qualifiers: Hyperlipidemia type: mixed hyperlipidemia Qualified Code(s): E78.2 - Mixed hyperlipidemia <William ArnoldBABAR-C - Last Filed: 06/10/20 11:24> Code(s): E78.5 - Hyperlipidemia, unspecified <William ArnoldBABAR-C - Last Filed: 06/10/20 11:24> Status: Chronic <William ArnoldBABAR-C - Last Filed: 06/10/20 11:24> Assessment and Plan: Continue statins <William OconnorBABAR atkinson-C - Last Filed: 06/10/20 11:24> (6) Anxiety: Code(s): F41.9 - Anxiety disorder, unspecified <William ArnoldJOSEN-C - Last Filed: 06/10/20 11:24> Status: Chronic <William ArnoldBABAR-C - Last Filed: 06/10/20 11:24> Assessment and Plan: Continue Wellbutrin <William Arnold APN-C - Last Filed: 06/10/20 11:24> (7) Coronary artery disease: Qualifiers: Associated angina: without angina Coronary Disease-Associated Artery/Lesion type: [place] artery [place] vs. transplanted heart: [place] heart Qualified Code(s): I25.10 - Atherosclerotic heart disease of [place] coronary artery without
--- NOTE | 2020-06-10 13:54 | PC.NURSE ---
1320 [facility] no [facility]/o. all personal items packed and sent with patient and staff. including phone and i-pad and cords. vocalizes an understanding. nicolas drummond rn [phone] zoya given report from [place]. nicolas drummond rn
--- NOTE | 2020-06-11 10:25 | PC.NURSE ---
[facility] states they received and understood the discharge instructions.
== END 2020-06-10 13:20 | DRG 559 ==
PROVIDERS: Nurse Practitioner; Nurse Practitioner Family; Admitting Provider Emergency Medicine; Visit Provider Emergency Medicine
DX: S72.101D Unspecified trochanteric fracture of right femur, subsequent encounter for closed fracture with routine healing (principal); U07.1 COVID-19; I48.20 Chronic atrial fibrillation, unspecified; N39.0 Urinary tract infection, site not specified; S42.201D Unspecified fracture of upper end of right humerus, subsequent encounter for fracture with routine healing; R53.1 Weakness; I10 Essential (primary) hypertension; F41.9 Anxiety disorder, unspecified
CPT/HCPCS: 36415; 73060; 80048; 80053; 81001; 83735; 85025; 85027; 87077; 87086; 87088; 87186; 97110; 97161; 97165; 97530; 97535; A9270; J1650

== ENCOUNTER 2025-05-05 00:46 | Day surgery (SDC) | payer MEDICARE, SELFPAY ==
--- NOTE | 2025-04-30 15:02 | PC.NURSE ---
[facility] has started construction of its new state of the art ER which will open Spring 2026. With this, we anticipate parking may be a challenge for some our surgical patients and families. Parking spaces are limited but are available for all Surgical, obstetrics, and ER patients sharing this lot. If you arrive and find you are having a hard time finding a parking space, please note that we understand the challenges, please drive around the hospital and park near Hospital Entrance 1. When you enter this entrance, you can ask a volunteer to direct or take you back to the surgical waiting area to check in. We appreciate everyone?s understanding of these expected challenges while we build for your future. Report to the Outpatient Waiting Room, entrance under the green pavilion located off [address], at time _9:30 AM on date __05/05/25 . Planned Procedure Time: _11:30 AM .? Time changes happen often and if your time is changed the preop area will call you the afternoon before. - You and your visitor will be asked to self-screen and do not enter if you have any COVID symptoms. Please call surgeon if you need to reschedule. - A mask is optional within the hospital at this time. Patients may have clear liquids (water, carbonated beverages, clear teas, apple juice) until 3 hours prior to surgery( 8:30 AM) with a maximum of 20 ounces. - No food from midnight until time of surgery and no smoking, or chewing tobacco (or any form of nicotine). No chewing gum, candy or mints. Take only the following medications with a SIP of water on the morning of surgery: NONE DO NOT STOP ANY OF YOUR OTHER PRESCRIPTION MEDICATIONS PRIOR TO SURGERY EXCEPT THE FOLLOWING Hold all vitamins and supplements for 3 days per anesthesiologist.LAST DOSE 05/01/25 Medications to discontinue per physician DAUGHTER STATES PER DR ROBERTS CONTINUE TAKING ELIQUIS_DO NOT HOLD Please no make-up, nail hungarian, hairspray, perfume, deodorant, or body powder the day of surgery.? No jewelry (including any body piercings) or valuables the day of surgery, leave them at home.? Please take a shower or bath the night before, or the morning of, surgery with an antibacterial soap.? Wear comfortable, loose fitting clothing.? Children are encouraged to wear pajamas. - Jewelry must be removed prior to entering the operating room.? Rings and piercings that are not removed may be cut off. - The hospital will not accept responsibility for valuables.? - Please leave all valuables, including medications, at home the day of surgery. If you are going home after surgery, a licensed crew car driver must drive you home.? - NO public transportation without another adult if you receive anesthesia. - We recommend that an adult stay with you for 24 hours following discharge. - We also recommend that you do not drive, make important decision, drink alcoholic beverages, or take any drugs that were not prescribed by your health care provider for at least 24 hours after your discharge time. For Pediatric surgeries, we recommend two adults accompany the child home. Follow any additional instructions given to you from your surgeon. Telephone instructions given to __DAUGHTER WOO and asked if any additional questions and then verbalized understanding. Patient advised to call surgeon office or pre surgery nurse liaison [phone] if any additional questions.
[2025-04-30 15:31] VITALS: BMI 24.5
--- NOTE | 2025-05-02 10:42 | PM.IMHP2 ---
H&P: HPI History of Present Illness Date/Time: 05/02/25 10:42 Chief Complaint: stone Narrative: ?Marine Sandoval is an 84-year-old female who presents for telehealth evaluation. She has significant dementia and cognitive decline, and much of the discussion was conducted with her daughter. She has a history of pelvic organ prolapse managed with a pessary, which she is tolerating well. She often has abnormal urinalysis results, likely due to contaminated samples associated with the pessary. She recently had a distal ureteral stone measuring approximately 4-6 millimeters, for which a stent was placed. The stone was not removed due to an abnormal urinalysis. Her daughter inquired about prolapse surgery and its potential impact on abnormal urinalysis results. Marine is largely asymptomatic from the prolapse and tolerating the pessary well. It was explained that prolapse surgery would address the vaginal bulge but would not improve other symptoms. The stone procedure, ureteroscopy, was discussed, including the possibility of performing it under sedation without discontinuing blood thinners. Risks such as bleeding, infection, and urinary tract damage were reviewed. Physical therapy at her long term was also discussed as a potential option. ?She was informed she could go back on blood thinners currently and could continue physical therapy Review of Systems Review of Systems: All systems reviewed & are unremarkable except as noted in HPI and below PMFSH Past Medical History Medical History Right humeral fracture Atrial fibrillation Lumbar radiculopathy Coronary artery disease Anxiety Hyperlipidemia Hypertension Femur fracture, right ongoing pain Surgical History Surgical History History of hip surgery Family History Family History Mother Acute myocardial infarction Father Acute myocardial infarction Sibling Diabetes mellitus Social History Social History Smoking status: Never smoker Second hand tobacco smoke exposure: No Alcohol intake: never Substance use: never Living arrangements: assisted living Gender identity (if verbalized by the patient): Female Sexual Orientation (if Verbalized by the Patient): Straight or Heterosexual Spiritual care concerns: No Meds Home Medications and Allergies Home Medications ?Medication ?Instructions ?Recorded ?Confirmed ?Type acetaminophen 500 mg tablet 1,000 mg PO TID PRN Pain (Scale 05/12/20 04/30/25 History Score 1-3) amiodarone 200 mg tablet 200 mg PO DAILY@0600 05/12/20 04/30/25 History buspirone 15 mg tablet 15 mg PO TID 05/12/20 04/30/25 History calcium acetate(phosphat bind) 667 667 mg PO DAILY 05/12/20 04/30/25 History mg capsule Held on 04/30/25. Instructions: ON HOLD cholecalciferol (vitamin D3) 25 25 mcg PO DAILY 05/12/20 04/30/25 History mcg (1,000 unit) tablet clopidogrel 75 mg tablet 75 mg PO DAILY 05/12/20 04/30/25 History cyclobenzaprine 5 mg tablet 5 mg PO TID PRN Muscle Spasm 05/12/20 04/30/25 History denosumab 60 mg/mL subcutaneous 60 mg subcut [id number] 05/12/20 04/30/25 History syringe (Prolia) docusate sodium 100 mg capsule 100 mg PO DAILY 05/12/20 04/30/25 History duloxetine 60 mg capsule,delayed 60 mg PO DAILY@1700 05/12/20 04/30/25 History release sprinkle lidocaine 5 % topical patch 3 patch topical DAILY 05/12/20 04/30/25 History (Lidoderm) ondansetron 8 mg disintegrating 8 mg PO Q6H PRN Nausea 05/12/20 04/30/25 History tablet pravastatin 20 mg tablet 20 mg PO DAILY 05/12/20 04/30/25 History sennosides 8.6 mg-docusate sodium 1 tab-cap PO HS 05/12/20 04/30/25 History 50 mg tablet simvastatin 40 mg tablet 40 mg PO HS 05/12/20 04/30/25 History enoxaparin 40 mg/0.4 mL 40 mg (0.4 mL) subcut DAILY #0 mL 05/28/20 04/30/25 Rx subcutaneous syringe (Lovenox) sodium chloride 0.65 % nasal spray 1 spray intranasal Q6HR PRN 05/28/20 04/30/25 Rx aerosol (Saline Mist) Congestion #30 mL acetaminophen 300 mg-codeine 30 mg 1 tablet PO Q6H PRN Pain Rated 4-6 06/10/20 04/30/25 Rx tablet #20 tabs carvedilol 3.125 mg tablet (Coreg) 3.125 mg PO Q12HR #60 tabs 06/10/20 04/30/25 Rx megestrol 40 mg tablet 40 mg PO QID #40 tabs 06/10/20 04/30/25 Rx polyethylene glycol 3350 17 gram 17 g PO DAILY PRN Constipation #1 06/10/20 04/30/25 Rx oral powder packet BA unit sodium chloride 1 gram tablet 1 g PO BID #20 tabs 06/10/20 04/30/25 Rx apixaban 5 mg tablet (Eliquis) 5 mg PO BID 04/30/25 04/30/25 History donepezil 10 mg tablet 10 mg PO HS 04/30/25 04/30/25 History memantine 10 mg tablet 10 mg PO HS 04/30/25 04/30/25 History methenamine hippurate 1 gram tablet 1 g PO BID 04/30/25 04/30/25 History Allergies Allergy/AdvReac Type Severity Reaction Status Date / Time meperidine Allergy Unknown Verified 04/30/25 14:58 propoxyphene Allergy Unknown Verified 04/30/25 14:58 hydrocodone AdvReac Confusion Verified 04/30/25 14:58 hydromorphone AdvReac Confusion Verified 04/30/25 14:58 ketorolac (From Toradol) AdvReac Confusion Verified 04/30/25 14:58 morphine AdvReac Nausea Verified 04/30/25 14:58 Exam Narrative: NAD Assessment and Plan Assessment and plan (1) Ureteral stone: Code(s): N20.1 - Calculus of ureter Status: Acute Assessment and Plan: - Significant dementia and cognitive decline. - History of pelvic organ prolapse, asymptomatic, managed with pessary. - Distal ureteral stone, approximately 4-6 millimeters, status post stent placement. PLAN: - Ureteroscopy will be planned to remove the ureteral stone. This procedure can be performed while the patient remains on blood thinners. Risks of bleeding, infection, and damage to the urinary tract were discussed. - Continue pessary maintenance for pelvic organ prolapse. Plan procedure is on the Left
[2025-05-05] VITALS (9 sets, daily range): BP systolic 118–131; BP diastolic 63–83; PULSE 60–70; RESP 16–18; TEMP 36.2; O2SAT 99–100
--- NOTE | ~2025-05-05 | XR_ITS ---
EXAMINATION: XR retrograde pyelo w/stent LT DATE: 05/05/2025 11:47 INDICATION: Left internal ureteral stent placement TECHNIQUE: Fluoroscopic images from a left internal ureteral stent placement are submitted for review. 9 of fluoroscopy time. FINDINGS: There is a left double-J internal ureteral stent projecting in expected position, with proximal [place] loop at the level of the renal pelvis and distal loop in the pelvis within the bladder lumen. IMPRESSION: 1. Left internal ureteral stent placement. Please refer to real-time procedural findings for details. Reviewed, dictated and finalized at location I. TY ENGINEER IMPRESSION: 1. Left internal ureteral stent placement. Please refer to real-time procedur al findings for details.
--- OUTSIDE RECORDS SUMMARY | 2025-05-05 00:49 | XMS_ITS | Clinical Summary ---
Author Organization [facility] al Address [address] [place] [address] Care Team Providers Care Sales Representative Livestock Name Role Phone Rome Galan MD Primary Care Provider Allergies Active Allergy Reactions Criticality Noted Date Comments Hydrocodone Nausea only Low 05/08/2020 confused Hydromorphone Nausea only Low 05/08/2020 confusion Meperidine Unknown 05/08/2020 Morphine Nausea only Low 05/08/2020 Propoxyphene Unknown 05/08/2020 Ketorolac Nausea only Low 05/08/2020 confusion Medications acetaminophen (TYLENOL) 500 mg tablet Take 1,000 mg by mouth 3 (three) times a day as needed 0 Active busPIRone (BUSPAR) 15 mg tablet Take 15 mg by mouth 3 (three) times a day 0 Active calcium acetate,phosphat bind, (PHOSLO) 667 mg capsule Take 667 mg by mouth daily Active carvediloL (COREG) 6.25 mg tablet Take 6.25 mg by mouth 2 (two) times a day 0 Active cholecalciferol (VITAMIN D-3) 25 mcg (1,000 unit) tablet Take 1 tablet by mouth daily Active clopidogreL (PLAVIX) 75 mg tablet TAKE 1 TABLET BY MOUTH DAILY 0 Active denosumab (PROLIA) 60 mg/mL syringe Inject 60 mg under the skin every 6 (six) months 0 Active docusate sodium (COLACE) 100 mg capsule Take 100 mg by mouth daily Active DULoxetine 60 mg capsule, delayed rel sprinkle Take 60 mg by mouth daily 0 Active ondansetron (ZOFRAN) 8 mg tablet TAKE 1 TABLET BY MOUTH EVERY 6 HOURS NEEDED FOR NAUSEA 0 Active simvastatin (ZOCOR) 40 mg tablet TAKE 1 TABLET BY MOUTH AT NIGHT AT BEDTIME 0 Active amiodarone (PACERONE) 200 mg tabletIndications :Cardioversion of Atrial Fibrillation Take 1 tablet (200 mg total) by mouth daily 30 tablet 1 0 Active cyclobenzaprine (FLEXERIL) 5 mg tabletIndications :Muscle Spasm Take 1 tablet (5 mg total) by mouth 3 (three) times a day as needed for muscle spasms 30 tablet 0 Active polyethylene glycol (MIRALAX) 17 gram packetIndications :constipation Take 1 packet (17 g total) by mouth daily 30 packet 0 Active pravastatin (PRAVACHOL) 20 mg tablet Take 1 tablet (20 mg total) by mouth daily 30 tablet 11 0 Active senna-docusate (PERICOLACE) 8.6-50 mg Take 2 tablets by mouth 2 (two) times a day 30 tablet 0 Active traMADoL (ULTRAM) 50 mg tablet Take 1 tablet (50 mg total) by mouth 4 (four) times a day as needed for pain 20 tablet 0 Active acetaminophen-cod eine (TYLENOL with CODEINE #3) 300-30 mg per tablet Take 1 tablet by mouth every 4 (four) hours as needed Active acetaminophen-cod eine (TYLENOL with CODEINE #3) 300-30 mg per tablet 1 Active cyanocobalamin (Vitamin B-12) 1,000 mcg/mL injection Inject 1,000 mcg into the muscle as instructed every 4 (four) weeks 1 Active cyanocobalamin (Vitamin B-12) 1,000 mcg/mL injection 1 Active furosemide (LASIX) 20 mg tablet 1 Active lidocaine (ASPERCREME) 4 % adhesive patch,medicated Place 1 patch on the skin daily as needed Active lidocaine HCL 4 % cream Apply topically as needed Active megestroL (MEGACE) 40 mg tablet 1 Active senna (SENOKOT) 8.6 mg tablet Take 1 tablet by mouth daily Active sodium chloride (OCEAN) 0.65 % drops Administer 1 spray into affected nostril(s) every 6 (six) hours as needed Active Active Problems Problem Noted Date Diagnosed Date Fracture of right humerus 05/09/2020 Acute pain due to trauma 05/09/2020 New onset a-fib 05/09/2020 Acute blood loss anemia 05/09/2020 Hypotension 05/09/2020 Leukocytosis 05/09/2020 Anxiety 05/09/2020 Fall 05/08/2020 Closed fracture of femur 05/07/2020 Overview (05/08/2020): Added automatically from request for surgery [id number] History of heart artery stent 11/21/2016 Overview (05/09/2020): Date Onset: 08/22/2017 Hypertension, essential 11/04/2015 Overview (05/09/2020): Date Onset: 07/10/2012 History of [place] (myocardial infarction) 11/04/2015 Overview (05/09/2020): old Coronary artery disease invo lving [place] coronary artery of [place] heart without angina pectoris 11/04/2015 Overview (05/09/2020): Date Onset: 04/04/2012 Date Onset: 03/30/2015 Hyperlipidemia 04/04/2012 Overview (05/09/2020): Date Onset: 08/22/2017 Surgical History Surgery Date Site/Laterality Comments CORONARY STENT PLACEMENT HYSTERECTOMY Medical History Medical History Date Comments Anxiety Arthritis Atherosclerosis of coronary artery Coronary artery disease Helicobacter pylori (H. pylori) infection Hyperlipidemia Hypertension Lumbar radiculopathy Myocardial infarction (HCC) Social History Tobacco Use Types Packs/Day Years Used Date Smoking Tobacco: Never Smokeless Tobacco: Never Alcohol Use Standard Drinks/Week Comments Not Currently 0 (1 standard drink = 0.6 oz pur e alcohol) Social Connection and Isolation Panel Answer Date Recorded In a typical week, how many times do you talk on the phone with family, friends, or neighbors? Twice a week 05/11/20 20 How often do you get togethe r with friends or relatives? Twice a week 05/11/2020 How often do you attend chur ch or jew services? 1 to 4 times per year 05/11/2020 Do you belong to any clubs o r organizations such as yazidism groups, unions, fraternal or athletic groups, or school groups? No 05/11/2020 How often do you attend meet ings of the clubs or organizations you belong to? Never 05/11/2020 Are you , , di vorced, , never , or living with a partner? 05/11/2020 Overall Financial Resource Strain (CARDIA) Answe r Date Recorded How hard is it for you to pa y for the very basics like food, housing, medical care, and heating? Not hard at all 05/11/2020 PHQ-2 Answer Date Recorded PHQ-2 Total Score (If total score is 3 or more points, staff should administer the PHQ-9) 0 05/08/2020 Hunger Vital Sign Answer Date Recorded Within the past 12 months, y ou worried that your food would run out before you got the money to buy more. Never true 05/11/20 20 Within the past 12 months, t he food you bought just didn't last and you didn't have money to get more. Never true 05/11/2020 PRAPARE - Transportation Answer Date Re corded In the past 12 months, has l ack of transportation kept you from medical appointments or from getting medications? No 04/22 In the past 12 months, has l ack of transportation kept you from meetings, work, or from getting things needed for daily living? 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 Gender Identity Not on file Sexual Orientation Not on file Last Filed Vital Signs Vital Sign Reading Time Taken Comments Blood Pressure 98/56 05/12/2020 2:12 PM MARINE PIPE WELDER Pulse 84 05/12/2020 2:27 PM MARINE PIPE WELDER Temperature 37.2 C (99 F) 05/12/2020 7:38 AM MARINE PIPE WELDER Respiratory Rate 21 05/12/2020 2:27 PM MARINE PIPE WELDER Oxygen Saturation 100% 05/12/2020 2:27 PM MARINE PIPE WELDER Inhaled Oxygen Concentration - - Weight 59 kg (130 lb) 05/08/2020 12:59 AM MARINE PIPE WELDER Height 157.5 cm (5' 2) 05/08/2020 12:59 AM MARINE PIPE WELDER Body Mass Index 23.78 05/08/2020 12:59 AM MARINE PIPE WELDER Plan of Treatment Not on file Medical Devices Implanted Type Area Supervisor Sewer Maintenance Device Identifier Shelf Expiration Date Model / Serial / Lot [employer]/Orth o [id number] Intertan 36cm 11.5mm Right Intertrochanter 130d 1.5mm Nail - [id number] Implanted:Qty: 1 on 05/08/2020 by Mara Watt MD at [facility] Right: Femur [employer]o [id number] 01/27/2028 [id number] / / [id number] [employer]/Orth o [id number] 11/7mm 85/80mm Lag Compression Integrate Interlock Hip Trochanter - [id number] Implanted:Qty: 1 on 05/08/2020 by Mara Watt MD at [facility] Right: Femur [employer]o [id number] 08/04/2029 [id number] / / [id number] [employer]/Orth o [id number] 5mm 50mm Low Profile Internal Hex Femur Screw Bone Trigen - [id number] Implanted:Qty: 1 on 05/08/2020 by Mara Watt MD at [facility] Right: Femur [employer]o [id number] / / [employer]/Orth o [id number] 5mm 37.5mm Low Profile Internal Hex Femur Screw Bone Trigen - [id number] Implanted:Qty: 1 on 05/08/2020 by Mara Watt MD at [facility] Right: Femur [employer]o [id number] / / Insurance MEDICARE [facility] MEDICARE [facility] Advance Directives For more information, please contact: [phone] * Full Code (Latest Code Status on File) Date Activated Date Inactivated Comments 05/08/2020 4:45 PM 05/12/2020 7:46 PM Care Teams Sales Representative Livestock Relationship Specialty Start Date End Date Rome Galan MD [address] [place] [address] [place] [address] PCP - General Family Medicine 07/20/20
--- OUTSIDE RECORDS SUMMARY | 2025-05-05 00:49 | XMS_ITS | Clinical Summary ---
Author Organization [facility] Address [address] [place] [address] Phone Care Team Providers Care Supervisor Agency Appointments Name Role Phone Rome Galan MD Primary Care Provider Medications DULoxetine (CYMBALTA) 60 mg Capsule, Delayed Release(E.C.) Take 60 mg by mouth daily. Active simvastatin (ZOCOR) 40 mg tablet Take 40 mg by mouth daily with supper. Active apixaban (ELIQUIS) 2.5 mg tablet Take by mouth 2 times daily. Active busPIRone (BUSPAR) 30 mg Tablet Take 30 mg by mouth 2 times daily. Active mirabegron (MYRBETRIQ) 50 mg Extended Release 24 hour tablet Take by mouth daily. Active acetaminophen (TYLENOL) 500 mg tablet Take 500 mg by mouth every 6 hours as needed. Active HYDROcodone-austen taminophen (NORCO) 10-325 mg Tablet Take 1 Tablet by mouth every 4 hours as needed. Active oxyCODONE (ROXICODONE) 10 mg tablet Take 10 mg by mouth every 12 hours as needed. Active Lidocaine 4 % Adhesive Patch, Medicated Apply 1 Patch to affected area every 12 hours. Active ondansetron (ZOFRAN) 4 mg Tablet Take 4 mg by mouth every 8 hours as needed. Active sennosides-docu sate sodium (SENNA-S) 8.6-50 mg tablet Take 1 Tablet by mouth daily. Active calcium acetate,phospha t bind, (PHOSLO) 667 mg tablet Take 1 Tablet by mouth 3 times daily. Active cyanocobalamin 1,000 mcg Tablet Take 1,000 mcg by mouth daily. Active cholecalciferol , vitamin D3, 1,000 unit Take by mouth. Active Active Problems No known active problems Family History Medical History Relation Name Comments Diabetes Brother Heart Disease Brother High Cholesterol Brother Other Brother spinal stenosis Heart Disease Father High Cholesterol Father Other Father tobacco use Heart Disease Mother High Cholesterol Mother Other Mother heart attack, c oronary thrombosis, tobacco use Relation Name Status Comments Brother Father Mother Social History Tobacco Use Types Packs/Day Years Used Date Smoking Tobacco: Never Smokeless Tobacco: Never Tobacco Cessation:Counseling Given: Not Answered Alcohol Use Standard Drinks/Week Comments Never 0 (1 standard drink = 0.6 oz pur e alcohol) Comments Unknown Sex and Gender Information Value Date Recorded Sex Assigned at Not on file Legal Sex Female 1:22 PM ACID TESTER Gender Identity Not on file Sexual Orientation Not on file Last Filed Vital Signs Vital Sign Reading Time Taken Comments Blood Pressure 92/67 05/25/2022 10:47 AM ACID TESTER Pulse 105 05/25/2022 10:47 AM ACID TESTER Temperature 36.4 C (97.6 F) 05/25/2022 10:47 AM ACID TESTER Respiratory Rate - - Oxygen Saturation - - Inhaled Oxygen Concentration - - Weight 56.1 kg (123 lb 9.6 oz) 05/25/2022 10:47 AM ACID TESTER Height - - Body Mass Index - - Plan of Treatment Health Maintenance Due Date Last Done Comments DTAP/TDAP/TD VACCINES (1 - Tdap) 1960 RSV VACCINE (60+ or ) (1 - 1-dose 75+ series) 2016 PNEUMOCOCCAL VACCINE 50+ YEA RS (2 of 2 - PCV) 08/22/2018 08/22/2017 INFLUENZA VACCINE (#1) 2024 , 03/02/2020, 03/05/2019 COVID-19 Vaccine ( - 2024- season) 2025 03/01/2021, 07/20/2020, 06/29/2020 OSTEOPOROSIS SCREENING 02/10/2027 02/10/2022, 2021 ZOSTER VACCINE Completed 11/02/2019, 12/21, 01/15/2019 Insurance [facility] [id number] Care Teams Supervisor Agency Appointments Relationship Specialty Start Date End Date Rome Galan MD [address] [place] [address] [place] [address] PCP - General Family Practice 05/11/22
--- NOTE | 2025-05-05 07:16 | WPDHPUPDATE1 ---
History and Physical Update Update Date/Time: 05/05/25 07:16 History and Physical has been reviewed, including an updated exam of the patient. There are NO changes in the patient's condition. Risks, benefits, and alternatives have been discussed and questions answered. Patient agrees to proceed with procedure.
--- NOTE | 2025-05-05 09:32 | ECG_ITS ---
Test Date: 2025-05-05 10:10:48 Measurements Intervals [place] Rate: 63 P: 30 HI: 154 QRS: -9 QRSD: 75 T: -20 QT: 421 QTc: 432 Interpretive Statements SINUS RHYTHM WITH SINUS ARRHYTHMIA CONSIDER INFERIOR INFARCT, AGE INDETERMINATE BASELINE ARTIFACT- I, II, III, AVR, AVL, AVF ABNORMAL ECG No previous ECG available for comparison Electronically Signed On 05-05-2025 10:31:48 FOOD GENERAL MANAGER by Pratik Pineda D.O.
[2025-05-05] MEDS: LACTATED RINGERS 1,000 ML 30 ML IV CONT (10:30)
--- NOTE | 2025-05-05 11:13 | WPDANESEPPF ---
Anes - Initial Pre Proc Eval Procedure: Operation Date: 05/05/25 11:30 Proposed Procedures p Cystoscopy, Left Ureteroscopy, Left Retrograde Pyelogram, Possible Left Stone Extraction, Possible Left Stent Placement - Lorne Dinh MD Date/Time: 05/05/25 11:13 Surgeon: Lorne Dinh MD Pre Op Diagnosis: left ureteral stone Patient Data Age: 84 Gender: F Height: 1.55 m Weight: 58.99 kg Allergies Allergy/AdvReac Type Severity Reaction Status Date / Time meperidine Allergy Unknown Verified 04/30/25 14:58 propoxyphene Allergy Unknown Verified 04/30/25 14:58 hydrocodone AdvReac Confusion Verified 04/30/25 14:58 hydromorphone AdvReac Confusion Verified 04/30/25 14:58 ketorolac (From Toradol) AdvReac Confusion Verified 04/30/25 14:58 morphine AdvReac Nausea Verified 04/30/25 14:58 Home Medications ?Medication ?Instructions ?Recorded ?Confirmed ?Type acetaminophen 500 mg tablet 1,000 mg PO TID PRN Pain (Scale 05/12/20 04/30/25 History Score 1-3) amiodarone 200 mg tablet 200 mg PO DAILY@0600 05/12/20 04/30/25 History buspirone 15 mg tablet 15 mg PO TID 05/12/20 04/30/25 History calcium acetate(phosphat bind) 667 667 mg PO DAILY 05/12/20 04/30/25 History mg capsule Held on 04/30/25. Instructions: ON HOLD cholecalciferol (vitamin D3) 25 25 mcg PO DAILY 05/12/20 04/30/25 History mcg (1,000 unit) tablet clopidogrel 75 mg tablet 75 mg PO DAILY 05/12/20 04/30/25 History cyclobenzaprine 5 mg tablet 5 mg PO TID PRN Muscle Spasm 05/12/20 04/30/25 History denosumab 60 mg/mL subcutaneous 60 mg subcut [id number] 05/12/20 04/30/25 History syringe (Prolia) docusate sodium 100 mg capsule 100 mg PO DAILY 05/12/20 04/30/25 History duloxetine 60 mg capsule,delayed 60 mg PO DAILY@1700 05/12/20 04/30/25 History release sprinkle lidocaine 5 % topical patch 3 patch topical DAILY 05/12/20 04/30/25 History (Lidoderm) ondansetron 8 mg disintegrating 8 mg PO Q6H PRN Nausea 05/12/20 04/30/25 History tablet pravastatin 20 mg tablet 20 mg PO DAILY 05/12/20 04/30/25 History sennosides 8.6 mg-docusate sodium 1 tab-cap PO HS 05/12/20 04/30/25 History 50 mg tablet simvastatin 40 mg tablet 40 mg PO HS 05/12/20 04/30/25 History enoxaparin 40 mg/0.4 mL 40 mg (0.4 mL) subcut DAILY #0 mL 05/28/20 04/30/25 Rx subcutaneous syringe (Lovenox) sodium chloride 0.65 % nasal spray 1 spray intranasal Q6HR PRN 05/28/20 04/30/25 Rx aerosol (Saline Mist) Congestion #30 mL acetaminophen 300 mg-codeine 30 mg 1 tablet PO Q6H PRN Pain Rated 4-6 06/10/20 04/30/25 Rx tablet #20 tabs carvedilol 3.125 mg tablet (Coreg) 3.125 mg PO Q12HR #60 tabs 06/10/20 04/30/25 Rx megestrol 40 mg tablet 40 mg PO QID #40 tabs 06/10/20 04/30/25 Rx polyethylene glycol 3350 17 gram 17 g PO DAILY PRN Constipation #1 06/10/20 04/30/25 Rx oral powder packet BA unit sodium chloride 1 gram tablet 1 g PO BID #20 tabs 06/10/20 04/30/25 Rx apixaban 5 mg tablet (Eliquis) 5 mg PO BID 04/30/25 04/30/25 History donepezil 10 mg tablet 10 mg PO HS 04/30/25 04/30/25 History memantine 10 mg tablet 10 mg PO HS 04/30/25 04/30/25 History methenamine hippurate 1 gram tablet 1 g PO BID 04/30/25 04/30/25 History Patient hx anesthesia problems: none Family hx anesthesia problems: none Results Review: All pre-operative results and documents have been reviewed as part of the pre-operative evaluation. [facility] Past Medical History Medical History Right humeral fracture Atrial fibrillation Lumbar radiculopathy Coronary artery disease Anxiety Hyperlipidemia Hypertension Femur fracture, right ongoing pain Surgical History Surgical History History of hip surgery Family History Family History Mother Acute myocardial infarction Father Acute myocardial infarction Sibling Diabetes mellitus Social History Social History Smoking status: Never smoker Second hand tobacco smoke exposure: No Alcohol intake: never Substance use: never Living arrangements: assisted living Gender identity (if verbalized by the patient): Female Sexual Orientation (if Verbalized by the Patient): Straight or Heterosexual Spiritual care concerns: No Anes - Eval Final PreProcedure Day of Procedure 05/05/25 11:13 Patient weight: normal Lungs: normal air movement Airway: Mallampati scale and special considerations (Teeth in poor condition. ) Neurological: alert and oriented Last oral intake: >/= 8 hours ASA classification: IV Emergent: no Anesthetic plan: proceed Anesthesia type and monitoring: general LMA and standard monitoring Results Review: All pre-operative results and documents have been reviewed as part of the pre-operative evaluation. Complicated hx noted and discussed w daughters at bedside. Pt still on AC and Dr Dinh aware. Informed Consent: The patient's anesthetic plan and its attendant risks and benefits were discussed with the patient/family/POA. Questions were solicited and answers provided to the satisfaction of the patient/family/POA.
[2025-05-05] MEDS: ceFAZolin 2 GM in SODIUM CHLORIDE 0.9% IV 50 ML 100 ML IVPB (11:15)
--- NOTE | 2025-05-05 12:00 | W.PM.PROC2 ---
Procedure Note - Detailed Date of Procedure 05/05/25 Pre-op Diagnosis left ureteral stone Post-op Diagnosis Same Procedure Performed Cystoscopy, left ureteroscopy, left retrograde pyelogram Surgeon Lorne Dinh MD Anesthesia General Indications The stomal end was a stent in place. She was in the emergency room in outside hospital with an abnormal urinalysis and a distal ureteral stone. I reviewed her CT scan. The stone was at the distal left ureter. The stent is now in place. She is here today for definitive stone extraction She is pretreated with antibiotics for positive urine culture. Otherwise she has asymptomatic bacteriuria. Daughter who is the power of defense attorney understood the risks of bleeding, infection, damage to urinary tract. They agreed to proceed Findings No ureteral stone present Description of Procedure She was correctly identified. Informed consent obtained. From the operating room. She given appropriate anesthesia. She was prepped and draped sterile fashion. Time-out performed. Cystoscopy revealed stent to be within the bladder. It was grasped and brought out through the meatus. A guidewire was placed up the stent. I then performed ureteroscopy. The ureter was entered. It was dilated consistent with previous stent placement. Was able to easily negotiate the ureteral scope all way up to the renal pelvis. No stone was seen. I did a gentle retrograde pyelogram of renal pelvis to confirm that I was in the kidney. There was no extravasation. I re-examined the ureter additional time. Again no stone was seen at any course of the ureter. There was minimal manipulation of the ureter. I decided to leave the stent out. I removed the wire. I then removed her pessary. I cleansed it and replaced it. She was awakened transferred to PACU in stable condition.
[2025-05-05] MEDS: fentaNYL CITRATE INJ (*CRX) 100 MCG/2 ML VIAL 25 MCG IV PUSH ×3 (13:00→13:37)
[2025-05-05] MEDS: traMADol HCL (*CRX) 50 MG TABLET PO (13:57)
== END 2025-05-05 14:20 | disposition home or self-care (01) ==
PROVIDERS: Visit Provider Urology
PROC: (CPT 52352; principal; 2025-05-05 11:30)
DX: N20.1 Calculus of ureter (principal); E78.5 Hyperlipidemia, unspecified; I10 Essential (primary) hypertension; I48.91 Unspecified atrial fibrillation; F03.90 Unspecified dementia, unspecified severity, without behavioral disturbance, psychotic disturbance, mood disturbance, and anxiety; I25.10 Atherosclerotic heart disease of native coronary artery without angina pectoris; F41.9 Anxiety disorder, unspecified; R94.31 Abnormal electrocardiogram [ECG] [EKG]; Z79.01 Long term (current) use of anticoagulants; Z79.02 Long term (current) use of antithrombotics/antiplatelets; Z98.890 Other specified postprocedural states; Z82.49 Family history of ischemic heart disease and other diseases of the circulatory system
CPT/HCPCS: 52351; 74420; 93005; J0690; A9270; C1769; J2003; J2704; J3010; J7120